=== PATIENT | female | born 2000 | race Caucasian/White ===

== ENCOUNTER 2023-06-17 23:50 | Observation (INO) | payer OTHER, SELFPAY ==
[2023-06-18 00:10] VITALS: BP 141/68; PULSE 103
[2023-06-18 00:28] VITALS: BP 122/58; PULSE 94
[2023-06-18 00:44] LABS: Bilirubin Urine NEGATIVE (NEGATIVE); Blood Urine NEGATIVE (NEGATIVE); Clarity Urine CLEAR (CLEAR); Color Urine LT. YELLOW (YELLOW); Glucose Urine UA NEGATIVE (NEGATIVE); Ketones Urine NEGATIVE (NEGATIVE); Leukocyte Esterase Urine SMALL (NEGATIVE); Nitrite Urine NEGATIVE (NEGATIVE); Protein Urine NEGATIVE (NEG/TRACE); Specific Gravity Urine 1.015 (1.005-1.025); Urobilinogen Urine 0.2 EU/dL (0.2-1.0)
[2023-06-18 00:45] LABS: Urine Microscopic Indicated YES
[2023-06-18 00:52] LABS: Bacteria Urine SMALL #/HPF (NONE SEEN); Cast Seen? NONE SEEN #/LPF (NONE SEEN); Crystals Seen? None Seen #/HPF (None Seen); Mucus Urine NONE SEEN (NONE SEEN); RBC Urine 0-2 #/HPF (0-2); Squamous Epithelial Cell Urine FEW #/LPF (NONE/RARE); Urine Culture Indicated YES; WBC Urine 0-2 #/HPF (NONE SEEN)
[2023-06-18 05:35] VITALS: BP 130/70; PULSE 103
--- NOTE | 2023-06-18 07:17 | W.PC.ACHO ---
Registration Status: ADM JI Primary Language: Preferred Language: Report given to Grady Alfonso RN. Active Medications Generic Name Dose Route Start Last Admin Trade Name Freq PRN Reason Stop Dose Admin Acetaminophen 1,000 mg 06/18/23 00:58 Acetaminophen 500 Mg Tablet PO Q6H PRN Cramping
--- NOTE | 2023-06-18 07:30 | US_ITS ---
[place] [id number] Patient Name: ASHLIE KELSEY MRN: [id number] date: 2000 Sex: F Assigned Patient Location: [facility] Current Patient Location: [facility] Accession/Order Number: [id number] Exam Date: 06/18/2023 07:15 Report Date: 06/18/2023 08:00 At the request of: FELICIA FUENTES Procedure: US OB placenta EXAMINATION: US OB growth, US OB placenta, US OB cervical length HISTORY: Vaginal bleeding COMPARISON: No relevant comparison available. FINDINGS: position: Cephalic presentation, longitudinal lie Amniotic fluid volume: 13.9 cm, normal Largest fluid pocket: 4.7 cm Placenta: Anterior. The placental tip is 5.4 cm from the internal os. Grade 0. No intraplacental or retroplacental echogenic abnormality Heart rate: 147 BPM Cervix: 5.5 cm, small amount of fluid in the endocervical canal measuring 1.2 mm in diameter BPD: 4.85 cm, 20 weeks 5 days, 16% Head circumference: 18.0 cm, 20 weeks 3 days, 5.6% Abdominal circumference: 16.7 cm, 21 weeks 5 days, 48% Femur length: 3.6 cm, 21 weeks 3 days, 37% Estimated weight: 426 g, 15 ounces, 39% Femur length abdominal circumference: 21.63 Femur length head circumference: 20.07 Head circumference to abdominal circumference: 1.08 Clinical age: 21 weeks 4 days Clinical NANCY: 10/25/2023 Ultrasound age: 21 weeks 1 day Ultrasound NANCY: 10/28/2023 US/US OB placenta IMPRESSION: Normal interval growth, head circumference at the 6th percentile Normal placenta with no evidence of abruption The cervix measures 5.5 cm in length. Small amount of fluid in the endocervical canal Electronically authenticated by: XUAN ARIZMENDI Date: 06/18/2023 08:00
--- NOTE | 2023-06-18 07:30 | US_ITS ---
[place] [id number] Patient Name: ASHLIE KELSEY MRN: [id number] date: 2000 Sex: F Assigned Patient Location: [facility] Current Patient Location: [facility] Accession/Order Number: [id number] Exam Date: 06/18/2023 07:15 Report Date: 06/18/2023 08:00 At the request of: FELICIA FUENTES Procedure: US OB cervical length EXAMINATION: US OB growth, US OB placenta, US OB cervical length HISTORY: Vaginal bleeding COMPARISON: No relevant comparison available. FINDINGS: position: Cephalic presentation, longitudinal lie Amniotic fluid volume: 13.9 cm, normal Largest fluid pocket: 4.7 cm Placenta: Anterior. The placental tip is 5.4 cm from the internal os. Grade 0. No intraplacental or retroplacental echogenic abnormality Heart rate: 147 BPM Cervix: 5.5 cm, small amount of fluid in the endocervical canal measuring 1.2 mm in diameter BPD: 4.85 cm, 20 weeks 5 days, 16% Head circumference: 18.0 cm, 20 weeks 3 days, 5.6% Abdominal circumference: 16.7 cm, 21 weeks 5 days, 48% Femur length: 3.6 cm, 21 weeks 3 days, 37% Estimated weight: 426 g, 15 ounces, 39% Femur length abdominal circumference: 21.63 Femur length head circumference: 20.07 Head circumference to abdominal circumference: 1.08 Clinical age: 21 weeks 4 days Clinical NANCY: 10/25/2023 Ultrasound age: 21 weeks 1 day Ultrasound NANCY: 10/28/2023 US/US OB cervical length IMPRESSION: Normal interval growth, head circumference at the 6th percentile Normal placenta with no evidence of abruption The cervix measures 5.5 cm in length. Small amount of fluid in the endocervical canal Electronically authenticated by: XUAN ARIZMENDI Date: 06/18/2023 08:00
--- NOTE | 2023-06-18 07:30 | US_ITS ---
[address] [address] Patient Name: ASHLIE KELSEY MRN: [id number] date: 2000 Sex: F Assigned Patient Location: [facility] Current Patient Location: [facility] Accession/Order Number: [id number] Exam Date: 06/18/2023 07:15 Report Date: 06/18/2023 08:00 At the request of: FELICIA FUENTES Procedure: US OB growth EXAMINATION: US OB growth, US OB placenta, US OB cervical length HISTORY: Vaginal bleeding COMPARISON: No relevant comparison available. FINDINGS: position: Cephalic presentation, longitudinal lie Amniotic fluid volume: 13.9 cm, normal Largest fluid pocket: 4.7 cm Placenta: Anterior. The placental tip is 5.4 cm from the internal os. Grade 0. No intraplacental or retroplacental echogenic abnormality Heart rate: 147 BPM Cervix: 5.5 cm, small amount of fluid in the endocervical canal measuring 1.2 mm in diameter BPD: 4.85 cm, 20 weeks 5 days, 16% Head circumference: 18.0 cm, 20 weeks 3 days, 5.6% Abdominal circumference: 16.7 cm, 21 weeks 5 days, 48% Femur length: 3.6 cm, 21 weeks 3 days, 37% Estimated weight: 426 g, 15 ounces, 39% Femur length abdominal circumference: 21.63 Femur length head circumference: 20.07 Head circumference to abdominal circumference: 1.08 Clinical age: 21 weeks 4 days Clinical NANCY: 10/25/2023 Ultrasound age: 21 weeks 1 day Ultrasound NANCY: 10/28/2023 US/US OB growth IMPRESSION: Normal interval growth, head circumference at the 6th percentile Normal placenta with no evidence of abruption The cervix measures 5.5 cm in length. Small amount of fluid in the endocervical canal Electronically authenticated by: XUAN ARIZMENDI Date: 06/18/2023 08:00
== END 2023-06-18 08:25 | disposition home or self-care (01) ==
PROVIDERS: Admitting Provider Midwife; Family Provider Family Medicine; PCP Family Medicine; Visit Provider Midwife
DX: O46.92 Antepartum hemorrhage, unspecified, second trimester (principal); Z3A.21 21 weeks gestation of pregnancy
CPT/HCPCS: 76815; 76816; 76817; 81003; 81015; 87086; G0378; G0379

== ENCOUNTER 2023-07-30 12:21 | Outpatient (OUT) | payer OTHER, SELFPAY ==
[2023-07-30 12:45] VITALS: BP 133/82; PULSE 106
--- NOTE | 2023-07-30 12:59 | US_ITS ---
[address] [address] Patient Name: ASHLIE KELSEY MRN: [id number] date: 2000 Sex: F Assigned Patient Location: [facility] Current Patient Location: [facility] Accession/Order Number: [id number] Exam Date: 07/30/2023 13:25 Report Date: 07/30/2023 14:04 At the request of: FELICIA FUENTES Procedure: US OB placenta Obstetrical ultrasound, limited CLINICAL: spotting TECHNIQUE: Transabdominal obstetrical ultrasound was performed. FINDINGS: Comparison to study 06/18/2023. FETUS AND PLACENTA: There is a single living intrauterine fetus in vertex presentation with heart rate of 149 beats per minute. The placenta is anterior in location, without previa. There is a 1.4 x 1.1 x 1.0 cm hypoechoic structure without significant vascular flow located at the upper margin of the placenta compatible with a small placental salazar. Otherwise normal appearance of the placenta without intraplacental or retroplacental fluid/hemorrhage. AMNIOTIC FLUID: Amniotic fluid volume but visualized inspection is subjectively within normal limits US/US OB placenta IMPRESSION: 1. Single intrauterine fetus in vertex presentation with heart rate of 149 beats per minute. 2. Anterior placenta without previa. There is a small 1.4 cm placental salazar. Placenta otherwise normal in appearance without intraplacental or retroplacental fluid/hemorrhage. Recommend followup imaging if symptoms worsen or persist. Electronically authenticated by: EVIN MCKENZIE Date: 07/30/2023 14:04
[2023-07-30 13:02] LABS: Bilirubin Urine NEGATIVE (NEGATIVE); Blood Urine NEGATIVE (NEGATIVE); Clarity Urine CLEAR (CLEAR); Color Urine LT. YELLOW (YELLOW); Glucose Urine UA NEGATIVE (NEGATIVE); Ketones Urine NEGATIVE (NEGATIVE); Leukocyte Esterase Urine SMALL (NEGATIVE); Nitrite Urine NEGATIVE (NEGATIVE); Protein Urine NEGATIVE (NEG/TRACE); Specific Gravity Urine 1.015 (1.005-1.025); Urine Microscopic Indicated YES; Urobilinogen Urine 0.2 EU/dL (0.2-1.0); pH Urine 7.5 (5.0-9.0)
[2023-07-30 13:07] LABS: Bacteria Urine NONE SEEN #/HPF (NONE SEEN); Mucus Urine NONE SEEN (NONE SEEN); RBC Urine NONE SEEN #/HPF (0-2); WBC Urine 0-2 #/HPF (NONE SEEN)
[2023-07-30 13:08] LABS: Amorphous Sediment Urine RARE; Cast Seen? NONE SEEN #/LPF (NONE SEEN); Crystals Seen? None Seen #/HPF (None Seen); Squamous Epithelial Cell Urine RARE #/LPF (NONE/RARE); Urine Culture Indicated NO
== END 2023-07-30 14:12 | disposition home or self-care (01) ==
LOC: FBCO 12:25 → FBC 12:26
PROVIDERS: Family Provider Family Medicine; PCP Family Medicine; Visit Provider Midwife
DX: O26.859 Spotting complicating pregnancy, unspecified trimester (principal); Z3A.00 Weeks of gestation of pregnancy not specified
CPT/HCPCS: 76815; 81001

== ENCOUNTER 2023-09-23 11:31 | Observation (INO) | payer OTHER, SELFPAY ==
[2023-09-23 11:48] VITALS: BP 145/85; PULSE 75
--- NOTE | 2023-09-23 11:51 | PC.NURSE ---
lab at bedside for ordered stat labs.Denies blurred vision, spotty vision. Took BP at home and elevated
[2023-09-23 11:57] LABS: Basophils Absolute Auto 0.1 10^3/uL (0.0-0.1); Basophils Percent Auto 0.5 % (0.2-2.0); Eosinophils Absolute Auto 0.1 10^3/uL (0.0-0.7); Eosinophils Percent Auto 0.4 % (0.9-7.0); Hematocrit 37.2 % (36.0-48.0); Hemoglobin 12.3 g/dL (12.0-16.0); Immature Granulocytes Abs Auto 0.08 10^3/uL (0.00-0.03); Immature Granulocytes Pct Auto 0.7 % (0.0-0.5); Lymphocytes Percent Auto 17.6 % (20.5-60.0); Mean Corpuscular HGB Conc 33.1 g/dL (29.9-35.2); Mean Corpuscular Hemoglobin 28.1 pg (26.7-34.0); Mean Corpuscular Volume 85.1 fL (81.0-99.0); Mean Platelet Volume 10.1 fL (9.5-13.5); Monocytes Absolute Auto 0.6 10^3/uL (0.3-0.8); Neutrophils Absolute Auto 8.7 10^3/uL (1.4-6.5); Neutrophils Percent Auto 75.8 % (43.0-75.0); Platelet Count 238 10^3/uL (150-450); Red Blood Count 4.37 10^6/uL (4.20-5.40); Red Cell Distribution Width 12.9 % (11.0-15.0); White Blood Count 11.5 10^3/uL (4.0-11.0)
[2023-09-23 12:15] LABS: Alanine Aminotransferase 9 U/L (14-59); Albumin Globulin Ratio 0.5; Albumin Level 2.1 g/dL (3.4-5.0); Alkaline Phosphatase 112 U/L (46-116); Anion Gap 16.4; Aspartate Amino Transferase 15 U/L (15-37); BUN Creatinine Ratio 12.4; Bilirubin Total 0.2 mg/dL (0.2-1.0); Calcium 7.9 mg/dL (8.5-10.1); Carbon Dioxide 19.4 mmol/L (21.0-32.0); Chloride 105 mmol/L (98-107); Estimated GFR (African America >60 (>=60); Estimated GFR (Non-African Ame >60 (>=60); Globulin 3.9 g/dL; Glucose 86 mg/dL (74-106); Lactate Dehydrogenase 174 U/L (81-234); Potassium 3.8 mmol/L (3.5-5.1); Sodium 137 mmol/L (136-145); Uric Acid 7.2 mg/dL (2.6-6.0)
[2023-09-23 12:20] VITALS: BP 138/82; PULSE 66
--- NOTE | 2023-09-23 12:41 | PC.NURSE ---
up to bathroom and urine specimen obtained and sent to lab. Returns to bed on left side- continues to deny headache, blurred vision, spotty vision, epigastric pain. States has not eaten today not really hungry .
[2023-09-23 12:50] VITALS: BP 117/66; PULSE 70
[2023-09-23 13:11] LABS: Protein Creatinine Ratio Urine 0.19; Total Protein Urine Random 121.5 mg/dL (<=11.9)
[2023-09-23 13:21] VITALS: BP 125/58; PULSE 58
[2023-09-23 13:51] VITALS: BP 106/57; PULSE 54
--- NOTE | 2023-09-23 14:28 | PC.NURSE ---
1235: CNM in unit for delivery and reported returned lab values for patient- no orders received-1310: States to call with urine protein creatinine ratio results. 1400: CNM called at office with results and orders received. 1415: discharge instructions reviewed with patient and off work note given. Patient leaves ambulatory undelivered.
== END 2023-09-23 14:15 | disposition home or self-care (01) ==
LOC: FBC 11:32
PROVIDERS: Admitting Provider Midwife; Family Provider Family Medicine; PCP Family Medicine; Visit Provider Midwife
DX: O16.9 Unspecified maternal hypertension, unspecified trimester (principal); O26.899 Other specified pregnancy related conditions, unspecified trimester; R60.9 Edema, unspecified; Z3A.00 Weeks of gestation of pregnancy not specified
CPT/HCPCS: 36415; 59025; 80053; 82570; 83615; 84156; 84550; 85025; 85384; G0378; G0379

== ENCOUNTER 2023-09-25 09:53 | Inpatient (IN) | payer OTHER, SELFPAY ==
[2023-09-25] VITALS (38 sets, daily range): BP systolic 97–145; BP diastolic 56–100; PULSE 55–77; RESP 16; TEMP 36–36.6
[2023-09-25 10:31] LABS: Amnisure POSITIVE (NEGATIVE)
[2023-09-25] MEDS: LACTATED RINGER'S SOLUTION 1,000 ML 125 ML IV ×2 (11:39→20:08)
[2023-09-25 11:54] LABS: Hematocrit 38.5 % (36.0-48.0); Mean Corpuscular HGB Conc 33.8 g/dL (29.9-35.2); Mean Corpuscular Hemoglobin 28.8 pg (26.7-34.0); Mean Corpuscular Volume 85.4 fL (81.0-99.0); Mean Platelet Volume 10.8 fL (9.5-13.5); Platelet Count 258 10^3/uL (150-450); Red Blood Count 4.51 10^6/uL (4.20-5.40); Red Cell Distribution Width 12.9 % (11.0-15.0); White Blood Count 14.1 10^3/uL (4.0-11.0)
[2023-09-25] MEDS: AMPICILLIN SODIUM 2,000 MG in 0.9 % SODIUM CHLORIDE 100 ML 200 MG IV (11:56)
[2023-09-25] MEDS: BETAMETHASONE ACE/BETAMETHASONE SOD PHOS 30 MG/5 ML 12 MG IM (12:36)
[2023-09-25] MEDS: OXYTOCIN/0.9 % SODIUM CHLORIDE 10 UNITS/500 ML PLAST..BAG 6 UNIT IV ×2 (13:02→22:57)
--- NOTE | 2023-09-25 13:25 | PC.NURSE ---
1000: patient arrives with c/o SROM at 0830 this morning. Noted a gush of clear fluid upon awakening and voided after a large amount. Oriented to room and EFM applied. 1015: SVE- ft, 50 ,-2 and posterior- amnisure completed and sent to lab. Patient denies feeling regular contractions and has a small amount fluid noted on siddharth pad with brownish color mixed in. FHR baseline 140 with moderate variability, no decels noted. No regular ctxs noted. 1045: amnisure results positive and TC to Jeanie Mancini CNM at office and report given and orders received to admit and begin pitocin augmentation. Patient informed of results and plan of care. Calling significant other .1053: up to bathroom and voids- specimen obtained. 1116: efm resumed and patient admission process completed. 1130: IV started on 1st attempt in right hand. Blood drawn from IV start and sent to lab. 1140 : LR started at 125ml/hr per infusion pump. 1200: Ampicillin 2 gms IVPB.1230: FHR 145 and moderate variability. No regular ctxs noted on tracing or by patient.1244: up to bathroom and washes up.1304: EFM resumed and oxytocin started at 2mu/min per infusion pump and procedure explained to patient and significant other. LE 1240 : celestone 12 mg IM per order of DR Alas on unit and updated on patient.
[2023-09-25] MEDS: AMPICILLIN SODIUM 1,000 MG in 0.9 % SODIUM CHLORIDE 50 ML 100 MG IV ×2 (16:00→20:08)
[2023-09-25 16:25] LABS: Amphetamine Screen Urine NEGATIVE (NEGATIVE); Barbiturates Screen Urine NEGATIVE (NEGATIVE); Benzodiazepines Screen Urine NEGATIVE (NEGATIVE); Buprenorphine Screen Urine NEGATIVE (NEGATIVE); Cannabinoid Screen Urine NEGATIVE (NEGATIVE); Cocaine Screen Urine NEGATIVE (NEGATIVE); Methadone Screen Urine NEGATIVE (NEGATIVE); Methamphetamines Screen Urine NEGATIVE (NEGATIVE); Opiate Screen Urine NEGATIVE (NEGATIVE); Oxycodone Screen Urine NEGATIVE (NEGATIVE); Phencyclidine Screen Urine NEGATIVE (NEGATIVE); Tricyclic Antidepressant Urine NEGATIVE (NEGATIVE)
--- NOTE | 2023-09-25 18:25 | US_ITS ---
[place] [id number] Patient Name: ASHLIE KELSEY MRN: [facility]:[id number] date: 2000 Sex: F Assigned Patient Location: [facility] Current Patient Location: [facility] Accession/Order Number: [id number] Exam Date: 09/25/2023 18:26 Report Date: 09/25/2023 19:32 At the request of: FELICIA FUENTES Procedure: US OB amniotic fluid vol EXAM: US OB amniotic fluid vol 09/25/2023 4:31 PM PDT, [id number] HISTORY: PROM. TECHNIQUE: Multiple longitudinal and transverse grayscale and color sonographic images of the intrauterine gestation were acquired. COMPARISON: OB ultrasound 07/30/2023. FINDINGS/IMPRESSION: Single live intrauterine gestation with heart rate at 122 bpm. Amniotic fluid index is within normal limits at 9.83 cm. Cephalic presentation. Electronically authenticated by: LONG HUBER Date: 09/25/2023 19:32
--- NOTE | 2023-09-25 18:39 | PC.NURSE ---
1815: Kamila Mancini CNM calls in - report given and orders GOYO. Informed patient sleeping currently and ctxs palpate mild and pitocin at 20 mu/min per infusion pump. Pain reported by patient as a 1 . 1824 - patient sleeping on right side and toco adjusted. 1834: US in for GOYO.
--- NOTE | 2023-09-25 21:12 | P.OBHP_ITS ---
OB - H&P: HPI History of Present Illness Chief complaint: POSS RUPTURED MEMBRANE : 1 Para: 0 Gestational age based on last menstrual period: 35.5 Indications for induction: other (PPROM) Comments: patient states her water broke this morning at 0826 when she was walking to the bathroom. History of Present Dating criteria: LMP confirmed by 1st trimester US care: good care Ultrasounds: normal 1st trimester US and normal mid trimester US complications: labor ( rupture of membranes ) Medical complications OB: none Labs Blood type: O (+) positive Rubella: immune RPR/VDLR: nonreactive GBS status: unknown HBsAG: negative Review of Systems ROS Status of ROS 10 or more systems reviewed and unremarkable except as noted in history and below PFSH PFSH Surgical History (Updated 06/18/23 @ 01:36 by Natalia Tsang) History of appendectomy ?Z90.49 - Acquired absence of other specified parts of digestive tract (ICD- 10) History of kidney surgery ?Z98.890 - Other specified postprocedural states (ICD-10) History of placement of ear tubes ?Z96.22 - Myringotomy tube(s) status (ICD-10) History of tonsillectomy and adenoidectomy ?Z90.89 - Acquired absence of other organs (ICD-10) Family History (Updated 06/18/23 @ 01:29 by Natalia Tsang) Mother Family history of hypertension Family history of diabetes mellitus Family history of myocardial infarction Grandmother Family history of hypertension Family history of diabetes mellitus Social History (Updated 06/18/23 @ 01:32 by Natalia Tsang) Within the past year, how often did you have a drink containing alcohol: monthly or less Within the past year, how many standard drinks containing alcohol did you have on a typical day: 1 or 2 Within the past year, how often did you have six or more drinks on one occasion: never Total score: 0 Score interpretation: A score less than 3 is consistent with normal alcohol consumption. Smoking status: Never smoker Non-prescribed substance use: denies use Highest level of school completed/degree received: some college, no degree Little interest or pleasure in doing things: not at all Feeling down, depressed, or hopeless: not at all Feel stressed/tense/nervous/anxious/difficulty sleeping: not at all Do you think of yourself as: straight/heterosexual Gender Identity: female Meds Home Medications and Allergies Home Medications Medication Instructions Recorded Confirmed Type ondansetron 8 mg disintegrating 8 mg PO PRN PRN nausea and vomiting 06/18/23 06/18/23 History tablet Allergies Allergy/AdvReac Type Severity Reaction Status Date / Time No Known Drug Allergies Allergy Verified 06/18/23 01:24 Exam Constitutional Vital Signs, click to edit/add: Last Vital Signs Temp 97.0 F L 09/25/23 18:00 Pulse 65 09/25/23 21:09 Resp 16 09/25/23 19:25 BP 141/81 09/25/23 21:09 Documenting provider has reviewed patient's vital signs: yes Common normals: no apparent distress, oriented x3, alert and well nourished General appearance: cooperative, comfortable, well kempt and well developed Nutritional appearance: overweight Orientation/consciousness: Yes awake, Yes oriented to person, Yes oriented to place and Yes oriented to time HENMT Common normals: normocephalic Eye Common normals: PERRL Neck & C-Spine Common normals: full ROM Chest Common normals: inspection of chest normal Respiratory Common normals: normal respiratory effort Auscultation: clear to auscultation bilaterally Cardio Common normals: regular rate, regular rhythm and no murmurs Rate: regular rate Rhythm: regular rhythm GI Common normals: Normal to inspection, nondistended, normoactive bowel sounds present Auscultation: normoactive bowel sounds Palpation: soft Percussion: normal to percussion Common normals: no CVA tenderness Back & Pelvis Common normals: no CVA tenderness Extremity Common normals: normal to inspection Neuro Common normals: oriented x3 and moves all extremities Sensorium/orientation: awake, alert, oriented to person, oriented to place and oriented to time Psych Common normals: mental status grossly normal, thought process normal and cooperative Results Labs Labs: Short CBC 09/25/23 Range/Units 11:35 WBC 14.1 H (4.0-11.0) 10^3/uL Hgb 13.0 (12.0-16.0) g/dL Hct 38.5 (36.0-48.0) % Plt Count 258 (150-450) 10^3/uL OB - A/P Assessment and Plan (1) premature rupture of membranes, unspecified as to length of time between rupture and onset of labor, third trimester:
--- NOTE | 2023-09-25 21:24 | PM.EN ---
Event Note Event Note: 2042 CNM to room to assess patient. Patient resting comfortably in bed and eating a popsicle. Denies pain, states she feels a little bit of cramping. Irregular contractions, abdomen palpates soft at this time. Speculum exam performed, +pooling seen, slide obtained. +ferning noted on slide. continue pitocin orders and antibiotics.
[2023-09-25] MEDS: CALCIUM CARBONATE 500 MG (200MG ELEMENTAL) TAB CHEW PO (21:27)
[2023-09-25] MEDS: ONDANSETRON PF 4 MG/2 ML VIAL IV (23:48)
[2023-09-25] MEDS: ACETAMINOPHEN 500 MG TABLET 1000 MG PO (23:48)
[2023-09-26] VITALS (40 sets, daily range): BP systolic 70–149; BP diastolic 53–93; PULSE 54–101; RESP 7–23; TEMP 36.4–36.7; O2SAT 78–100
[2023-09-26] MEDS: AMPICILLIN SODIUM 1,000 MG in 0.9 % SODIUM CHLORIDE 50 ML 100 MG IV ×3 (00:23→08:30)
[2023-09-26] MEDS: FAMOTIDINE/PF 20 MG/2 ML VIAL IV ×2 (02:50→11:33)
[2023-09-26] MEDS: LACTATED RINGER'S SOLUTION 1,000 ML 125 ML IV (04:07)
[2023-09-26] MEDS: BETAMETHASONE ACE/BETAMETHASONE SOD PHOS 30 MG/5 ML 12 MG IM (10:44)
--- NOTE | 2023-09-26 11:00 | PM.EN ---
Event Note Event Note: Plan of care explained to patient per Dr Alas. Patient is over 24 hours ruptured and no active labor pattern, patient not feeling any contractions. Afebrile, doing well. Patient and Dr Alas discuss options and patient agrees to proceed with primary section at this time for failed induction and prolonged rupture of membranes with no labor pattern established.
[2023-09-26] MEDS: 0.9 % SODIUM CHLORIDE 1,000 ML 1000 ML IV (11:32)
[2023-09-26] MEDS: CEFAZOLIN SODIUM/DEXTROSE,ISO 2 GM/50 ML PIGGYBACK IV ×2 (11:32→16:57)
[2023-09-26] MEDS: METOCLOPRAMIDE HCL 10 MG/2 ML VIAL IVP (11:33)
[2023-09-26] MEDS: LACTATED RINGER'S SOLUTION 1,000 ML 50 ML IV (12:35)
--- NOTE | 2023-09-26 12:37 | PM.ONB ---
Brief Operative Note Date of procedure: 09/26/23 Pre-op diagnosis: iup at 35 6/7wks, prom, failure to augment Post-op diagnosis: same as pre-op Procedure: NAME OF PROCEDURE: [ section ] PROCEDURE: Patient was taken back to the Operating Room where she was given a spinal anesthesia with Duramorph without difficulty. She was prepped and draped in the normal sterile fashion. A Pfannenstiel skin incision was then made 2 cm above the symphysis pubis and carried down to underlying rectus fascia using a Bovie. The fascia was incised in the midline and extended laterally using Kelly scissors. Two Jodi clamps were placed on the superior aspect of the fascia and dissected off the underlying rectus muscles. The same was performed on the inferior aspect as well. The muscles were then in the midline. Peritoneum was identified and entered bluntly. The peritoneum was then extended superiorly and inferiorly with good visualization of the bladder. The bladder blade was inserted. A low transverse incision was made on the patient's uterus and extended laterally digitally. The was then delivered atraumatically after the bladder blade was removed in the cephalic position. The cord was clamped and cut. Cord blood was obtained. The was handed off to awaiting team. The patient's placenta was spontaneously delivered. The uterus was then exteriorized. The uterus was cleared of all clots and debris. The bladder blade was reinserted. The patient's uterine incision was closed using #0 Vicryl in a running lock fashion. Excellent hemostasis was assured. The uterus was then returned to the patient's abdomen. The patient's abdomen was copiously irrigated using warm saline. Peritoneal gutters were cleared of all clots and debris. Again excellent hemostasis was assured. The patient's peritoneum was closed using 3-0 Vicryl in a running fashion. The patient's fascia was closed using #0 Vicryl in a running fashion. The patient's skin was closed using 4-0 Vicryl subcuticularly. The patient tolerated the procedure well. Sponge, lap, and needle counts were correct x2. The patient was taken to the Recovery Room in stable condition. Anesthesia: GETA Surgeon: Ramírez Alas Medical Office Coordinator: FELICIA FUENTES Estimated blood loss (mL): 600 Pathology: other (placenta) Condition: stable Disposition: PACU
--- NOTE | 2023-09-26 12:38 | PM.OBPRCCS ---
Procedure Pre-op/Post-op diagnoses: Pre-Op/Post-Op Diagnoses Operation Date: 09/26/23 11:30 <No data on this case meets the specified criteria> Procedure: Procedures Operation Date: 09/26/23 11:30 Actual Procedure Side Surgeon p Not Applicable Ramírez Alas DO Industrial Machine Operator: FELICIA FUENTES Estimated blood loss (mL): 600 Disposition: PACU Anesthesia type: Spinal
[2023-09-26] MEDS: OXYTOCIN/0.9 % SODIUM CHLORIDE 20 UNITS/1,000 ML PLAST..BAG 200 UNIT IV (13:05)
--- NOTE | 2023-09-26 13:16 | PC.NURSE ---
Electrical Manager speaks with FOB at warmer bedside. Discussed LPI and and need for support until infant ready to do full feeds at the breast. Given information for same. Also speaks with Liana (mom) and given information fo rthe same. Very early after C/S delivery, mom in recovery. Will need on going education and reinforcement of skills.
--- NOTE | 2023-09-26 13:27 | PM.EN ---
Event Note Event Note: 1st Assist Note: I first assisted Dr Alas with primary section for failed augmentation, patient had SROM since yesterday at 0830. I first assisted as directed by Dr Alas. I independently closed the SQ layer with 3-0 vicryl without difficulty. I then independently closed the incision with 4-0 vicryl on a [place] needle without difficulty
[2023-09-26] MEDS: KETOROLAC TROMETHAMINE 30 MG/ML VIAL IVP ×2 (13:43→19:46)
--- NOTE | 2023-09-26 18:44 | PC.NURSE ---
barr emptied of 75 ml urine, Kamila notified of same, baby to breast but no latch achieved, reviewed hand expression and elects to pump by hand
[2023-09-26 21:29] LABS: Basophils Percent Auto 0.1 % (0.2-2.0); Hematocrit 32.8 % (36.0-48.0); Immature Granulocytes Abs Auto 0.18 10^3/uL (0.00-0.03); Immature Granulocytes Pct Auto 0.8 % (0.0-0.5); Lymphocytes Absolute Auto 1.1 10^3/uL (1.2-3.8); Lymphocytes Percent Auto 4.7 % (20.5-60.0); Mean Corpuscular HGB Conc 33.5 g/dL (29.9-35.2); Mean Corpuscular Hemoglobin 28.8 pg (26.7-34.0); Mean Corpuscular Volume 85.9 fL (81.0-99.0); Monocytes Absolute Auto 0.8 10^3/uL (0.3-0.8); Monocytes Percent Auto 3.4 % (1.7-12.0); Neutrophils Absolute Auto 20.4 10^3/uL (1.4-6.5); Platelet Count 267 10^3/uL (150-450); Red Blood Count 3.82 10^6/uL (4.20-5.40); Red Cell Distribution Width 13.1 % (11.0-15.0); White Blood Count 22.4 10^3/uL (4.0-11.0)
[2023-09-26 21:38] LABS: Anion Gap 12.7; BUN Creatinine Ratio 11.2; Calcium 7.5 mg/dL (8.5-10.1); Chloride 103 mmol/L (98-107); Estimated GFR (African America 60 (>=60); Estimated GFR (Non-African Ame 49 (>=60); Glucose 138 mg/dL (74-106); Potassium 4.7 mmol/L (3.5-5.1); Sodium 131 mmol/L (136-145)
[2023-09-26 22:58] LABS: Alanine Aminotransferase 9 U/L (14-59); Albumin Globulin Ratio 0.5; Albumin Level 1.9 g/dL (3.4-5.0); Alkaline Phosphatase 94 U/L (46-116); Aspartate Amino Transferase 15 U/L (15-37); Bilirubin Direct <0.1 mg/dL (0.0-0.2); Bilirubin Total 0.1 mg/dL (0.2-1.0); Globulin 3.6 g/dL; Total Protein 5.5 g/dL (6.4-8.2)
[2023-09-27] VITALS (7 sets, daily range): BP systolic 128–141; BP diastolic 73–81; PULSE 55–75; RESP 14–18; TEMP 36.3–36.8
[2023-09-27] MEDS: ENOXAPARIN SODIUM 40 MG/0.4 ML SYRINGE SUBQ (00:01)
[2023-09-27] MEDS: KETOROLAC TROMETHAMINE 30 MG/ML VIAL IVP (01:37)
[2023-09-27 06:48] LABS: Basophils Percent Auto 0.2 % (0.2-2.0); Hematocrit 32.1 % (36.0-48.0); Hemoglobin 10.5 g/dL (12.0-16.0); Immature Granulocytes Abs Auto 0.14 10^3/uL (0.00-0.03); Immature Granulocytes Pct Auto 0.7 % (0.0-0.5); Lymphocytes Absolute Auto 1.4 10^3/uL (1.2-3.8); Lymphocytes Percent Auto 7.3 % (20.5-60.0); Mean Corpuscular HGB Conc 32.7 g/dL (29.9-35.2); Mean Corpuscular Hemoglobin 28.5 pg (26.7-34.0); Mean Corpuscular Volume 87.2 fL (81.0-99.0); Mean Platelet Volume 10.8 fL (9.5-13.5); Monocytes Absolute Auto 0.8 10^3/uL (0.3-0.8); Monocytes Percent Auto 3.9 % (1.7-12.0); Neutrophils Absolute Auto 16.9 10^3/uL (1.4-6.5); Neutrophils Percent Auto 87.9 % (43.0-75.0); Platelet Count 240 10^3/uL (150-450); Red Blood Count 3.68 10^6/uL (4.20-5.40); Red Cell Distribution Width 13.1 % (11.0-15.0); White Blood Count 19.2 10^3/uL (4.0-11.0)
[2023-09-27] MEDS: FUROSEMIDE 20 MG/2 ML VIAL 10 MG IVP (07:33)
--- NOTE | 2023-09-27 08:39 | P.OBPN_ITS ---
OB - PN: Subj Subjective Patient comments: no complaints and pain well controlled [place] status: doing well Exam Constitutional Vital Signs, click to edit/add: Last Vital Signs Temp 97.4 F L 09/27/23 07:30 Pulse 56 L 09/27/23 07:32 Resp 18 09/27/23 07:30 BP 141/81 09/27/23 07:32 Pulse Ox 97 09/26/23 19:52 O2 Del Method Room Air 09/27/23 05:00 Common normals: no apparent distress Chest Common normals: inspection of chest normal Respiratory Common normals: normal respiratory effort, no retractions, no use of accessory muscles and clear to auscultation bilaterally Cardio Common normals: regular rate GI Common normals: Normal to inspection, nondistended, normoactive bowel sounds present, soft to palpation and non-tender Inspection: normal to inspection Auscultation: hypoactive bowel sounds Palpation: soft Percussion: normal to percussion Other: Incision dry and intact with steri strips Other: Fundus firm below umbilicus, nontender minimal bleeding Results Labs Labs: Short CBC 09/26/23 09/27/23 Range/Units 21:24 06:40 WBC 22.4 H 19.2 H (4.0-11.0) 10^3/uL Hgb 11.0 L 10.5 L (12.0-16.0) g/dL Hct 32.8 L 32.1 L (36.0-48.0) % Plt Count 267 240 (150-450) 10^3/uL BMP 09/26/23 21:24 Sodium 131 L Potassium 4.7 Chloride 103 Carbon Dioxide 20.0 L BUN 15.0 Creatinine 1.34 H Glucose 138 H Calcium 7.5 L Liver Function 09/26/23 Range/Units 21:24 Total Bilirubin 0.1 L (0.2-1.0) mg/dL Direct Bilirubin <0.1 (0.0-0.2) mg/dL AST 15 (15-37) U/L ALT 9 L (14-59) U/L Alkaline Phosphatase 94 (46-116) U/L Albumin 1.9 L (3.4-5.0) g/dL OB - PN: A/P Assessment and Plan (1) premature rupture of membranes, unspecified as to length of time between rupture and onset of labor, third trimester: Plan Urine output averaged adequately but decreased compared to input. Lasix given IV this AM with good results OK to remove barr catheter and continue void urine amount. Post op blood count appropriate, WBC improved Creatinine 1.3 last night, in light of patient's PMH of kidney issues will discontinue NSAID for pain management Patient to have Renal panel drawn this evening Time Spent with Patient Time: Total time spent is greater than 50% in coordination of care (as documented) at patient's floor/unit and/or counseling patient: Total time spent with greater than 50% in coordination of care (as documented) at patient's floor/unit and/or counseling patient: less than 15 minutes
[2023-09-27] MEDS: CALCIUM CARBONATE 500 MG (200MG ELEMENTAL) TAB CHEW PO (09:07)
[2023-09-27] MEDS: SIMETHICONE 80 MG TAB.CHEW PO (09:07)
[2023-09-27] MEDS: DOCUSATE SODIUM 100 MG CAPSULE PO ×2 (09:07→22:13)
[2023-09-27 09:16] LABS: Albumin Level 1.9 g/dL (3.4-5.0); BUN Creatinine Ratio 18.1; Calcium 7.7 mg/dL (8.5-10.1); Carbon Dioxide 20.8 mmol/L (21.0-32.0); Chloride 105 mmol/L (98-107); Estimated GFR (African America >60 (>=60); Estimated GFR (Non-African Ame >60 (>=60); Glucose 100 mg/dL (74-106); Potassium 4.8 mmol/L (3.5-5.1); Sodium 134 mmol/L (136-145)
[2023-09-27] MEDS: OXYCODONE HCL/ACETAMINOPHEN 5MG/325MG 1 TAB PO (09:56)
[2023-09-27] MEDS: ONDANSETRON 4 MG RAPDIS TABLET PO (10:47)
[2023-09-27] MEDS: ACETAMINOPHEN 500 MG TABLET 1000 MG PO (16:05)
--- NOTE | 2023-09-27 19:24 | W.PC.ACHO ---
Registration Status: ADM IN Primary Language: Japanese Preferred Language: Japanese Report received from Hanane Alexis RN at 1903. Active Medications Generic Name Dose Route Start Last Admin Trade Name Freq PRN Reason Stop Dose Admin Acetaminophen 1,000 mg 09/25/23 21:05 09/27/23 16:05 Acetaminophen 500 Mg Tablet PO 1,000 mg Q6H PRN Administration Pain Al Hydroxide/Mg Hydroxide 2,400 mg 09/26/23 12:39 Magnesium Hydroxide 2,400 Mg/10 Ml Oral.Susp PO Q6H PRN Dyspepsia Calcium Carbonate 500 mg 09/25/23 21:05 09/27/23 09:07 Calcium Carbonate 500 Mg (200mg Elemental) Tab Chew PO 500 mg ACHS PRN Administration Heartburn Docusate Sodium 100 mg 09/27/23 09:00 09/27/23 09:07 Docusate Sodium 100 Mg Capsule PO 100 mg BID ASHLEY Administration Enoxaparin Sodium 40 mg 09/26/23 22:00 09/27/23 00:01 Enoxaparin Sodium 40 Mg/0.4 Ml Syringe SUBQ 40 mg Q24H ASHLEY Administration Famotidine 10 mg 09/26/23 21:00 09/27/23 09:00 Famotidine 20 Mg Tablet PO Not Given BID ASHLEY Sodium Chloride 1,000 mls @ 125 mls/hr 09/26/23 13:30 Sodium Chloride 0.9% 1,000 Ml IV .Q8H ASHLEY Lactated Ringer's 1,000 mls @ 50 mls/hr 09/26/23 12:35 09/26/23 12:35 Lactated Ringers IV 50 mls/hr .Q20H ASHLEY Administration Ondansetron HCl 4 mg 09/26/23 12:39 Ondansetron Pf 4 Mg/2 Ml Vial IV Q6H PRN Nausea And Vomiting Ondansetron HCl 4 mg 09/26/23 12:39 09/27/23 10:47 Ondansetron 4 Mg Rapdis Tablet PO 4 mg Q6H PRN Administration Nausea And Vomiting Oxycodone/Acetaminophen 1 tab 09/26/23 12:39 09/27/23 09:56 Oxycodone Hcl/Acetaminophen 5mg/325mg PO 1 tab Q4H PRN Administration Pain Scale 4-6 Oxycodone/Acetaminophen 2 tab 09/26/23 12:39 Oxycodone Hcl/Acetaminophen 5mg/325mg PO Q4H PRN Pain Scale 7-10 Senna 17.2 mg 09/26/23 20:00 Sennosides 8.6 Mg Tablet PO QHS PRN Constipation Simethicone 80 mg 09/26/23 12:39 09/27/23 09:07 Simethicone 80 Mg Tab.Chew PO 80 mg QID PRN Administration Abdominal Distention Zolpidem Tartrate 5 mg 09/25/23 21:05 Zolpidem Tartrate 5 Mg Tablet PO HS PRN Sleep Respiratory Pulse Oximetry 97 Oxygen Delivery Method Room Air Oxygen Delivery Method Room Air Oxygen Delivery Method Room Air Oxygen Delivery Method Room Air Cardiology Heart Sounds Strong,Regular Heart Sounds Strong,Regular Bowels Bowel Pattern No Bowel Movement Bowel Pattern No Bowel Movement Renal Bladder Pattern Continent
[2023-09-28] VITALS (10 sets, daily range): BP systolic 129–163; BP diastolic 72–104; PULSE 48–75; RESP 16–18; TEMP 36.6–36.8
[2023-09-28] MEDS: OXYCODONE HCL/ACETAMINOPHEN 5MG/325MG 1 TAB PO ×2 (00:13→04:06)
[2023-09-28] MEDS: ENOXAPARIN SODIUM 40 MG/0.4 ML SYRINGE SUBQ (00:14)
--- NOTE | 2023-09-28 07:08 | W.PC.ACHO ---
Registration Status: ADM IN Primary Language: Venezuelan Preferred Language: Venezuelan Report given to Hanane Alexis RN [id number]. Active Medications Generic Name Dose Route Start Last Admin Trade Name Freq PRN Reason Stop Dose Admin Acetaminophen 1,000 mg 09/25/23 21:05 09/27/23 16:05 Acetaminophen 500 Mg Tablet PO 1,000 mg Q6H PRN Administration Pain Al Hydroxide/Mg Hydroxide 2,400 mg 09/26/23 12:39 Magnesium Hydroxide 2,400 Mg/10 Ml Oral.Susp PO Q6H PRN Dyspepsia Calcium Carbonate 500 mg 09/25/23 21:05 09/27/23 09:07 Calcium Carbonate 500 Mg (200mg Elemental) Tab Chew PO 500 mg ACHS PRN Administration Heartburn Docusate Sodium 100 mg 09/27/23 09:00 09/27/23 22:13 Docusate Sodium 100 Mg Capsule PO 100 mg BID ASHLEY Administration Enoxaparin Sodium 40 mg 09/26/23 22:00 09/28/23 00:14 Enoxaparin Sodium 40 Mg/0.4 Ml Syringe SUBQ 40 mg Q24H ASHLEY Administration Famotidine 10 mg 09/26/23 21:00 09/27/23 22:14 Famotidine 20 Mg Tablet PO Not Given BID ASHLEY Sodium Chloride 1,000 mls @ 125 mls/hr 09/26/23 13:30 Sodium Chloride 0.9% 1,000 Ml IV .Q8H ASHLEY Lactated Ringer's 1,000 mls @ 50 mls/hr 09/26/23 12:35 09/26/23 12:35 Lactated Ringers IV 50 mls/hr .Q20H ASHLEY Administration Ondansetron HCl 4 mg 09/26/23 12:39 Ondansetron Pf 4 Mg/2 Ml Vial IV Q6H PRN Nausea And Vomiting Ondansetron HCl 4 mg 09/26/23 12:39 09/27/23 10:47 Ondansetron 4 Mg Rapdis Tablet PO 4 mg Q6H PRN Administration Nausea And Vomiting Oxycodone/Acetaminophen 1 tab 09/26/23 12:39 09/28/23 04:06 Oxycodone Hcl/Acetaminophen 5mg/325mg PO 1 tab Q4H PRN Administration Pain Scale 4-6 Oxycodone/Acetaminophen 2 tab 09/26/23 12:39 Oxycodone Hcl/Acetaminophen 5mg/325mg PO Q4H PRN Pain Scale 7-10 Senna 17.2 mg 09/26/23 20:00 Sennosides 8.6 Mg Tablet PO QHS PRN Constipation Simethicone 80 mg 09/26/23 12:39 09/27/23 09:07 Simethicone 80 Mg Tab.Chew PO 80 mg QID PRN Administration Abdominal Distention Zolpidem Tartrate 5 mg 09/25/23 21:05 Zolpidem Tartrate 5 Mg Tablet PO HS PRN Sleep Respiratory Oxygen Delivery Method Room Air Oxygen Delivery Method Room Air Cardiology Heart Sounds Strong,Regular Bowels Bowel Pattern No Bowel Movement Renal Bladder Pattern Continent Bladder Pattern Continent
--- NOTE | 2023-09-28 08:50 | PM.OBPN ---
OB - PN: Subj Subjective Interval history: lower leg swelling is what is bothering her the most, right foot more than the left Otherwise pain well controlled Patient comments: pain well controlled and tolerating diet [place] infant status: doing well Exam Constitutional Vital Signs, click to edit/add: Last Vital Signs Temp 97.4 F L 09/27/23 07:30 Pulse 68 09/28/23 04:09 Resp 16 09/28/23 00:15 BP 135/79 09/28/23 04:09 Pulse Ox 97 09/26/23 19:52 O2 Del Method Room Air 09/28/23 00:15 GI Common normals: Normal to inspection, nondistended, normoactive bowel sounds present Palpation: soft Other: Fundus firm below umbilicus Incision dry and intact with steri strips Other: Fundus firm below umbilicus OB - PN: A/P Assessment and Plan (1) premature rupture of membranes, unspecified as to length of time between rupture and onset of labor, third trimester: Plan BP stable 130s-140s/70s-80s Discussed generalized swelling and expectations Hopeful discharge to home tomorrow Plan - Plan: routine postop care Time Spent with Patient Time: Total time spent is greater than 50% in coordination of care (as documented) at patient's floor/unit and/or counseling patient: Total time spent with greater than 50% in coordination of care (as documented) at patient's floor/unit and/or counseling patient: less than 15 minutes
[2023-09-28] MEDS: ACETAMINOPHEN 500 MG TABLET 1000 MG PO ×2 (08:55→20:00)
[2023-09-28] MEDS: DOCUSATE SODIUM 100 MG CAPSULE PO ×2 (08:56→21:37)
[2023-09-28] MEDS: FAMOTIDINE 20 MG TABLET 10 MG PO ×3 (08:56→21:37)
[2023-09-28] MEDS: CALCIUM CARBONATE 500 MG (200MG ELEMENTAL) TAB CHEW PO (11:27)
[2023-09-29] VITALS (53 sets, daily range): BP systolic 118–207; BP diastolic 58–114; PULSE 48–99; RESP 14–18; TEMP 36.1–36.6
[2023-09-29] MEDS: LABETALOL HCL 20 MG/4 ML SYRINGE IVP ×4 (01:42→05:10)
[2023-09-29] MEDS: OXYCODONE HCL/ACETAMINOPHEN 5MG/325MG 1 TAB PO (01:48)
[2023-09-29] MEDS: MAGNESIUM SULFATE IN WATER 4 GM/100 ML PIGGYBACK IV (02:22)
[2023-09-29] MEDS: MAGNESIUM SULFATE IN WATER 40 GM/1,000 ML IV.SOLN IV ×2 (02:50→21:48)
[2023-09-29] MEDS: 0.9 % SODIUM CHLORIDE 1,000 ML 75 ML IV ×2 (02:50→19:01)
[2023-09-29] MEDS: ACETAMINOPHEN 500 MG TABLET 1000 MG PO ×2 (06:18→16:12)
[2023-09-29] MEDS: LABETALOL HCL 200 MG TABLET PO ×3 (08:02→23:53)
[2023-09-29 08:56] LABS: Basophils Absolute Auto 0.1 10^3/uL (0.0-0.1); Basophils Percent Auto 0.4 % (0.2-2.0); Eosinophils Absolute Auto 0.2 10^3/uL (0.0-0.7); Eosinophils Percent Auto 1.3 % (0.9-7.0); Hematocrit 31.6 % (36.0-48.0); Hemoglobin 10.4 g/dL (12.0-16.0); Immature Granulocytes Pct Auto 1.2 % (0.0-0.5); Lymphocytes Absolute Auto 2.4 10^3/uL (1.2-3.8); Lymphocytes Percent Auto 14.6 % (20.5-60.0); Mean Corpuscular HGB Conc 32.9 g/dL (29.9-35.2); Mean Corpuscular Hemoglobin 28.7 pg (26.7-34.0); Mean Corpuscular Volume 87.1 fL (81.0-99.0); Mean Platelet Volume 10.6 fL (9.5-13.5); Monocytes Absolute Auto 0.9 10^3/uL (0.3-0.8); Monocytes Percent Auto 5.5 % (1.7-12.0); Neutrophils Absolute Auto 12.6 10^3/uL (1.4-6.5); Platelet Count 282 10^3/uL (150-450); Red Blood Count 3.63 10^6/uL (4.20-5.40); Red Cell Distribution Width 13.2 % (11.0-15.0); White Blood Count 16.4 10^3/uL (4.0-11.0)
[2023-09-29 09:04] LABS: Estimated GFR (African America >60 (>=60); Estimated GFR (Non-African Ame >60 (>=60)
[2023-09-29 09:11] LABS: INR <0.93; Partial Thromboplastin Time 25.9 sec (22.3-36.2); Prothrombin Time 9.2 sec (9.0-11.6)
[2023-09-29 09:23] LABS: Alanine Aminotransferase 15 U/L (14-59); Aspartate Amino Transferase 19 U/L (15-37); Uric Acid 6.9 mg/dL (2.6-6.0)
--- NOTE | 2023-09-29 09:30 | PC.NURSE ---
See paper documentation for further assessment and documentation.
[2023-09-29] MEDS: DOCUSATE SODIUM 100 MG CAPSULE PO ×2 (11:35→21:33)
--- NOTE | 2023-09-29 19:16 | W.PC.ACHO ---
Registration Status: ADM IN Primary Language: Finnish Preferred Language: Finnish Active Medications Generic Name Dose Route Start Last Admin Trade Name Freq PRN Reason Stop Dose Admin Acetaminophen 1,000 mg 09/25/23 21:05 09/29/23 16:12 Acetaminophen 500 Mg Tablet PO 1,000 mg Q6H PRN Administration Pain Al Hydroxide/Mg Hydroxide 2,400 mg 09/26/23 12:39 Magnesium Hydroxide 2,400 Mg/10 Ml Oral.Susp PO Q6H PRN Dyspepsia Calcium Carbonate 500 mg 09/25/23 21:05 09/28/23 11:27 Calcium Carbonate 500 Mg (200mg Elemental) Tab Chew PO 500 mg ACHS PRN Administration Heartburn Calcium Gluconate 1,000 mg 09/29/23 01:05 Calcium Gluconate 1,000 Mg/10 Ml Vial IVP ONCE PRN Mag Toxicity Docusate Sodium 100 mg 09/27/23 09:00 09/29/23 11:35 Docusate Sodium 100 Mg Capsule PO 100 mg BID ASHLEY Administration Enoxaparin Sodium 40 mg 09/26/23 22:00 09/29/23 09:38 Enoxaparin Sodium 40 Mg/0.4 Ml Syringe SUBQ Not Given Q24H ASHLEY Famotidine 10 mg 09/26/23 21:00 09/29/23 11:35 Famotidine 20 Mg Tablet PO Not Given BID ASHLEY Sodium Chloride 1,000 mls @ 125 mls/hr 09/26/23 13:30 Sodium Chloride 0.9% 1,000 Ml IV .Q8H ASHLEY Lactated Ringer's 1,000 mls @ 50 mls/hr 09/26/23 12:35 09/26/23 12:35 Lactated Ringers IV 50 mls/hr .Q20H ASHLEY Administration Sodium Chloride 1,000 mls @ 75 mls/hr 09/29/23 01:15 09/29/23 19:01 Sodium Chloride 0.9% 1,000 Ml IV 75 mls/hr .[id number] ASHLEY Administration Magnesium Sulfate 40 gm in 1,000 mls @ 50 mls/hr 09/29/23 01:15 09/29/23 02:50 Magnesium Sulf 40 G/1,000 Ml IV 50 mls/hr Q13H ASHLEY Administration Labetalol HCl 20 mg 09/29/23 00:45 09/29/23 05:10 Labetalol Hcl 20 Mg/4 Ml Syringe IVP 20 mg Q10M PRN Administration Hypertension Labetalol HCl 200 mg 09/29/23 16:00 09/29/23 16:01 Labetalol Hcl 200 Mg Tablet PO 200 mg TID@0000,0800,1600 ASHLEY Administration Ondansetron HCl 4 mg 09/26/23 12:39 Ondansetron Pf 4 Mg/2 Ml Vial IV Q6H PRN Nausea And Vomiting Ondansetron HCl 4 mg 09/26/23 12:39 09/27/23 10:47 Ondansetron 4 Mg Rapdis Tablet PO 4 mg Q6H PRN Administration Nausea And Vomiting Oxycodone/Acetaminophen 1 tab 09/26/23 12:39 09/29/23 01:48 Oxycodone Hcl/Acetaminophen 5mg/325mg PO 1 tab Q4H PRN Administration Pain Scale 4-6 Oxycodone/Acetaminophen 2 tab 09/26/23 12:39 Oxycodone Hcl/Acetaminophen 5mg/325mg PO Q4H PRN Pain Scale 7-10 Senna 17.2 mg 09/26/23 20:00 Sennosides 8.6 Mg Tablet PO QHS PRN Constipation Simethicone 80 mg 09/26/23 12:39 09/27/23 09:07 Simethicone 80 Mg Tab.Chew PO 80 mg QID PRN Administration Abdominal Distention Zolpidem Tartrate 5 mg 09/25/23 21:05 Zolpidem Tartrate 5 Mg Tablet PO HS PRN Sleep IV Insertion/Site Date of IV Line Insertion [20g 09/29/23 left Antecubital] Date of IV Line Insertion [18g 09/29/23 right Antecubital] IV Insertion Time [20g left 01:20 Antecubital] IV Insertion Time [18g right 01:00 Antecubital] Respiratory Oxygen Delivery Method Room Air Oxygen Delivery Method Room Air Oxygen Delivery Method Room Air Oxygen Delivery Method Room Air Oxygen Delivery Method Room Air Oxygen Delivery Method Room Air Oxygen Delivery Method Room Air Cardiology Heart Sounds Strong,Regular Heart Sounds Strong,Regular Bowels Bowel Pattern No Bowel Movement Date of Last Bowel Movement 09/29/23 Renal Bladder Pattern Continent Bladder Pattern Continent Bladder Pattern Continent
[2023-09-29] MEDS: ENOXAPARIN SODIUM 40 MG/0.4 ML SYRINGE SUBQ (21:33)
[2023-09-30] VITALS (20 sets, daily range): BP systolic 131–195; BP diastolic 76–97; PULSE 53–76; RESP 16–18; TEMP 36.1–37.3; O2SAT 97–99
[2023-09-30] MEDS: ACETAMINOPHEN 500 MG TABLET 1000 MG PO ×3 (02:24→22:14)
--- NOTE | 2023-09-30 07:39 | P.OBPN_ITS ---
OB - PN: Subj Subjective Interval history: lower leg swelling is what is bothering her the most, right foot more than the left Otherwise pain well controlled Patient comments: no complaints and pain well controlled [place] infant status: doing well Exam Constitutional Vital Signs, click to edit/add: Last Vital Signs Temp 97.6 F 09/30/23 04:05 Pulse 71 09/30/23 04:07 Resp 16 09/30/23 04:05 BP 159/89 H 09/30/23 04:07 Pulse Ox 97 09/26/23 19:52 O2 Del Method Room Air 09/30/23 04:05 Common normals: no apparent distress HENMT Common normals: normocephalic Eye Common normals: EOMs intact bilaterally Neck & C-Spine Common normals: full ROM and no lymphadenopathy Lymph Lymphatic: no lymphadenopathy noted Chest Common normals: inspection of chest normal and inspection of breasts normal Respiratory Common normals: normal respiratory effort Cardio Common normals: regular rate, regular rhythm and no murmurs Rate: regular rate Rhythm: regular rhythm GI Common normals: Normal to inspection, nondistended, normoactive bowel sounds present Common normals: no CVA tenderness Back & Pelvis Common normals: no CVA tenderness Extremity Common normals: normal to inspection and full ROM Neuro Common normals: oriented x3 Psych Common normals: mental status grossly normal, thought process normal, cooperative, affect normal and speech normal Results Labs Labs: Short CBC 09/29/23 Range/Units 08:45 WBC 16.4 H (4.0-11.0) 10^3/uL Hgb 10.4 L (12.0-16.0) g/dL Hct 31.6 L (36.0-48.0) % Plt Count 282 (150-450) 10^3/uL BMP 09/29/23 08:45 BUN 12.0 Creatinine 0.88 Liver Function 09/29/23 Range/Units 08:45 AST 19 (15-37) U/L ALT 15 (14-59) U/L OB - PN: A/P Assessment and Plan (1) premature rupture of membranes, unspecified as to length of time between rupture and onset of labor, third trimester: Plan - day: 4 Plan: discharge home Time Spent with Patient Time: Total time spent is greater than 50% in coordination of care (as documented) at patient's floor/unit and/or counseling patient: Total time spent with greater than 50% in coordination of care (as documented) at patient's floor/unit and/or counseling patient: less than 15 minutes
--- NOTE | 2023-09-30 07:49 | P.DS_ITS ---
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 OB - DS: Summary Peripartum Data - Procedures: Procedures Operation Date: 09/26/23 11:30 Actual Procedure Side Surgeon p Not Applicable Ramírez Alas DO Peripartum Data - Vaginal Delivery Procedures: Procedures Operation Date: 09/26/23 11:30 Actual Procedure Side Surgeon p Not Applicable Ramírez Alas DO Complications complications: other (elevated blood pressure, magnesium sulfate ) Delivery method: section Gender: female Discharge plan: home Status at Discharge Functional status at discharge: independent ambulation Overall status at discharge: patient is progressing back to baseline Time Spent with Patient Time attestation: Total time spent providing and/or coordinating discharge services: Time spent: less than 30 minutes Exam Constitutional Vital Signs, click to edit/add: Last Vital Signs Temp 97.6 F 09/30/23 04:05 Pulse 71 09/30/23 04:07 Resp 16 09/30/23 04:05 BP 159/89 H 09/30/23 04:07 Pulse Ox 97 09/26/23 19:52 O2 Del Method Room Air 09/30/23 04:05 Common normals: no apparent distress and oriented x3 HENMT Common normals: normocephalic Eye Common normals: EOMs intact bilaterally Neck & C-Spine Common normals: full ROM General: normal visual inspection Lymph Lymphatic: no lymphadenopathy noted Chest Common normals: inspection of chest normal Respiratory Common normals: normal respiratory effort and clear to auscultation bilaterally Effort & inspection: able to speak in complete sentences and symmetric chest movement Auscultation: clear to auscultation bilaterally Cardio Common normals: regular rate, regular rhythm and no murmurs Rate: regular rate Rhythm: regular rhythm GI Common normals: Normal to inspection, nondistended, normoactive bowel sounds present Auscultation: normoactive bowel sounds Palpation: soft Common normals: no CVA tenderness Back & Pelvis Common normals: no CVA tenderness Extremity Common normals: normal to inspection and full ROM Neuro Common normals: oriented x3 Psych Common normals: mental status grossly normal, thought process normal, cooperative, affect normal, speech normal and activity/motor behavior normal DS: Data Data Completed and Pending Labs on day of discharge: Labs from last 24 hours 09/29/23 08:45 WBC 16.4 H RBC 3.63 L Hgb 10.4 L Hct 31.6 L MCV 87.1 MCH 28.7 MCHC 32.9 RDW 13.2 Plt Count 282 MPV 10.6 Neut % (Auto) 77.0 H Lymph % (Auto) 14.6 L Navarro % (Auto) 5.5 Eos % (Auto) 1.3 Baso % (Auto) 0.4 Neut # (Auto) 12.6 H Lymph # (Auto) 2.4 [place] # (Auto) 0.9 H Eos # (Auto) 0.2 Baso # (Auto) 0.1 Abs Immat Gran (auto) 0.20 H Imm/Tot Granulo (auto) 1.2 H PT 9.2 INR <0.93 APTT 25.9 Fibrinogen 332 BUN 12.0 Creatinine 0.88 Est GFR ( Amer) >60 Est GFR (Non-Af Amer) >60 Uric Acid 6.9 H AST 19 ALT 15 Discharge Plan Discharge Disposition: Home, Self-Care Condition: Good Discharge Medications: New labetalol 200 mg Tablet 200 mg PO TID 30 Days Qty: 90 0RF oxycodone-acetaminophen 5-325 mg Tablet 1 tab PO Q8H PRN (Reason: Pain Scale 4-6) 7 Days Qty: 20 0RF docusate sodium 100 mg Capsule 100 mg PO BID 30 Days Qty: 60 2RF Discontinued ondansetron 8 mg tablet,disintegrating 8 mg PO PRN PRN (Reason: nausea and vomiting) Activity: increase activity as tolerated Diet: advance to your usual diet Patient Instructions: (DC) Forms: Portal Instructions
[2023-09-30] MEDS: LABETALOL HCL 200 MG TABLET PO ×3 (07:50→23:59)
--- NOTE | 2023-09-30 07:50 | W.PC.ACHO ---
Registration Status: ADM IN Primary Language: Ivorian Preferred Language: Ivorian Active Medications Generic Name Dose Route Start Last Admin Trade Name Freq PRN Reason Stop Dose Admin Acetaminophen 1,000 mg 09/25/23 21:05 09/30/23 02:24 Acetaminophen 500 Mg Tablet PO 1,000 mg Q6H PRN Administration Pain Al Hydroxide/Mg Hydroxide 2,400 mg 09/26/23 12:39 Magnesium Hydroxide 2,400 Mg/10 Ml Oral.Susp PO Q6H PRN Dyspepsia Calcium Carbonate 500 mg 09/25/23 21:05 09/28/23 11:27 Calcium Carbonate 500 Mg (200mg Elemental) Tab Chew PO 500 mg ACHS PRN Administration Heartburn Calcium Gluconate 1,000 mg 09/29/23 01:05 Calcium Gluconate 1,000 Mg/10 Ml Vial IVP ONCE PRN Mag Toxicity Docusate Sodium 100 mg 09/27/23 09:00 09/29/23 21:33 Docusate Sodium 100 Mg Capsule PO 100 mg BID ASHLEY Administration Enoxaparin Sodium 40 mg 09/26/23 22:00 09/29/23 21:33 Enoxaparin Sodium 40 Mg/0.4 Ml Syringe SUBQ 40 mg Q24H ASHLEY Administration Famotidine 10 mg 09/26/23 21:00 09/29/23 23:09 Famotidine 20 Mg Tablet PO Not Given BID ASHLEY Sodium Chloride 1,000 mls @ 125 mls/hr 09/26/23 13:30 Sodium Chloride 0.9% 1,000 Ml IV .Q8H ASHLEY Lactated Ringer's 1,000 mls @ 50 mls/hr 09/26/23 12:35 09/26/23 12:35 Lactated Ringers IV 50 mls/hr .Q20H ASHLEY Administration Sodium Chloride 1,000 mls @ 75 mls/hr 09/29/23 01:15 09/29/23 19:01 Sodium Chloride 0.9% 1,000 Ml IV 75 mls/hr .[id number] ASHLEY Administration Magnesium Sulfate 40 gm in 1,000 mls @ 50 mls/hr 09/29/23 01:15 09/29/23 21:48 Magnesium Sulf 40 G/1,000 Ml IV 50 mls/hr Q13H ASHLEY Administration Labetalol HCl 20 mg 09/29/23 00:45 09/29/23 05:10 Labetalol Hcl 20 Mg/4 Ml Syringe IVP 20 mg Q10M PRN Administration Hypertension Labetalol HCl 200 mg 09/29/23 16:00 09/29/23 23:53 Labetalol Hcl 200 Mg Tablet PO 200 mg TID@0000,0800,1600 ASHLEY Administration Ondansetron HCl 4 mg 09/26/23 12:39 Ondansetron Pf 4 Mg/2 Ml Vial IV Q6H PRN Nausea And Vomiting Ondansetron HCl 4 mg 09/26/23 12:39 09/27/23 10:47 Ondansetron 4 Mg Rapdis Tablet PO 4 mg Q6H PRN Administration Nausea And Vomiting Oxycodone/Acetaminophen 1 tab 09/26/23 12:39 09/29/23 01:48 Oxycodone Hcl/Acetaminophen 5mg/325mg PO 1 tab Q4H PRN Administration Pain Scale 4-6 Oxycodone/Acetaminophen 2 tab 09/26/23 12:39 Oxycodone Hcl/Acetaminophen 5mg/325mg PO Q4H PRN Pain Scale 7-10 Senna 17.2 mg 09/26/23 20:00 Sennosides 8.6 Mg Tablet PO QHS PRN Constipation Simethicone 80 mg 09/26/23 12:39 09/27/23 09:07 Simethicone 80 Mg Tab.Chew PO 80 mg QID PRN Administration Abdominal Distention Zolpidem Tartrate 5 mg 09/25/23 21:05 Zolpidem Tartrate 5 Mg Tablet PO HS PRN Sleep Respiratory Oxygen Delivery Method Room Air Oxygen Delivery Method Room Air Oxygen Delivery Method Room Air Oxygen Delivery Method Room Air Oxygen Delivery Method Room Air Oxygen Delivery Method Room Air Oxygen Delivery Method Room Air Oxygen Delivery Method Room Air Cardiology Heart Sounds Strong,Regular Heart Sounds Strong,Regular Heart Sounds Strong,Regular Heart Sounds Strong,Regular Bowels Bowel Pattern No Bowel Movement Date of Last Bowel Movement 09/29/23 Date of Last Bowel Movement 09/29/23 Renal Bladder Pattern Continent Bladder Pattern Continent Bladder Pattern Continent Bladder Pattern Continent
[2023-09-30] MEDS: FUROSEMIDE 20 MG/2 ML VIAL IVP (11:29)
--- NOTE | 2023-09-30 17:15 | PC.NURSE ---
1620: CN notified of assessment and BP's since 1130. Order received to increase labetalol to 300 mg for next dose and through the night
--- NOTE | 2023-09-30 17:23 | PC.NURSE ---
1710: Recheck of BP after 1 hour of labetalol po administration- 191/88. CNM notified
[2023-09-30] MEDS: NIFEdipine 30 MG TAB.ER.24 PO (18:10)
--- NOTE | 2023-09-30 18:19 | PC.NURSE ---
1750: Dr Alas calls and report given of assessment and Bp's, medications and patient DTR's. I/O reported since lasix administration and patient without complaints of headache, blurred vision, dizziness or epigastric pain. Orders received and patient informed of plan of care. Spo2 spot checked as ordered at 97% x 60 seconds. Patient resting in bed and denies complaints.1809: procardia 30 XL given as ordered.171: Dr Alas present at patient bedside and auscultates lung sounds and talking with patient and family.
[2023-09-30 18:54] LABS: Basophils Absolute Auto 0.1 10^3/uL (0.0-0.1); Basophils Percent Auto 0.3 % (0.2-2.0); Eosinophils Absolute Auto 0.4 10^3/uL (0.0-0.7); Eosinophils Percent Auto 2.9 % (0.9-7.0); Hematocrit 28.3 % (36.0-48.0); Hemoglobin 9.5 g/dL (12.0-16.0); Immature Granulocytes Pct Auto 0.7 % (0.0-0.5); Lymphocytes Absolute Auto 2.6 10^3/uL (1.2-3.8); Lymphocytes Percent Auto 16.9 % (20.5-60.0); Mean Corpuscular HGB Conc 33.6 g/dL (29.9-35.2); Mean Corpuscular Hemoglobin 29.4 pg (26.7-34.0); Mean Corpuscular Volume 87.6 fL (81.0-99.0); Mean Platelet Volume 10.4 fL (9.5-13.5); Monocytes Absolute Auto 0.9 10^3/uL (0.3-0.8); Monocytes Percent Auto 5.8 % (1.7-12.0); Neutrophils Absolute Auto 11.2 10^3/uL (1.4-6.5); Neutrophils Percent Auto 73.4 % (43.0-75.0); Platelet Count 291 10^3/uL (150-450); Red Blood Count 3.23 10^6/uL (4.20-5.40); Red Cell Distribution Width 13.6 % (11.0-15.0); White Blood Count 15.2 10^3/uL (4.0-11.0)
[2023-09-30 19:09] LABS: Alanine Aminotransferase <6 U/L (14-59); Albumin Globulin Ratio 0.6; Alkaline Phosphatase 85 U/L (46-116); Anion Gap 9.7; Aspartate Amino Transferase 16 U/L (15-37); BUN Creatinine Ratio 13.6; Bilirubin Total 0.1 mg/dL (0.2-1.0); Calcium 7.3 mg/dL (8.5-10.1); Carbon Dioxide 26.9 mmol/L (21.0-32.0); Chloride 105 mmol/L (98-107); Estimated GFR (African America >60 (>=60); Estimated GFR (Non-African Ame >60 (>=60); Globulin 3.5 g/dL; Glucose 103 mg/dL (74-106); Potassium 3.6 mmol/L (3.5-5.1); Sodium 138 mmol/L (136-145); Total Protein 5.5 g/dL (6.4-8.2)
--- NOTE | 2023-09-30 20:25 | PC.NURSE ---
Megnesium remains off.
[2023-09-30] MEDS: ENOXAPARIN SODIUM 40 MG/0.4 ML SYRINGE SUBQ (22:14)
[2023-09-30] MEDS: DOCUSATE SODIUM 100 MG CAPSULE PO (22:15)
[2023-09-30] MEDS: FAMOTIDINE 20 MG TABLET 10 MG PO (22:16)
[2023-10-01 01:26] VITALS: BP 168/92; PULSE 71
[2023-10-01 01:29] VITALS: BP 168/92; PULSE 60
[2023-10-01 05:29] VITALS: BP 155/89; PULSE 70
[2023-10-01 05:34] VITALS: BP 155/89; PULSE 70; RESP 18; TEMP 36.7; O2SAT 98
[2023-10-01] MEDS: ACETAMINOPHEN 500 MG TABLET 1000 MG PO ×2 (05:38→13:35)
--- NOTE | 2023-10-01 07:38 | PM.OBPN ---
OB - PN: Subj Subjective Interval history: lower leg swelling is what is bothering her the most, right foot more than the left Otherwise pain well controlled Patient comments: no complaints and pain well controlled [place] status: doing well Exam Constitutional Vital Signs, click to edit/add: Last Vital Signs Temp 98.1 F 10/01/23 05:34 Pulse 70 10/01/23 05:34 Resp 18 10/01/23 05:34 BP 155/89 H 10/01/23 05:34 Pulse Ox 98 10/01/23 05:34 O2 Del Method Room Air 10/01/23 05:34 Common normals: no apparent distress Respiratory Common normals: normal respiratory effort and clear to auscultation bilaterally Cardio Common normals: regular rate and regular rhythm GI Common normals: Normal to inspection, nondistended, normoactive bowel sounds present Extremity Common normals: no calf tenderness Results Labs Labs: Short CBC 09/30/23 Range/Units 18:42 WBC 15.2 H (4.0-11.0) 10^3/uL Hgb 9.5 L (12.0-16.0) g/dL Hct 28.3 L (36.0-48.0) % Plt Count 291 (150-450) 10^3/uL BMP 09/30/23 18:42 Sodium 138 Potassium 3.6 Chloride 105 Carbon Dioxide 26.9 BUN 14.0 Creatinine 1.03 H Glucose 103 Calcium 7.3 L Liver Function 09/30/23 Range/Units 18:42 Total Bilirubin 0.1 L (0.2-1.0) mg/dL AST 16 (15-37) U/L ALT <6 L (14-59) U/L Alkaline Phosphatase 85 (46-116) U/L Albumin 2.0 L (3.4-5.0) g/dL OB - PN: A/P Assessment and Plan (1) premature rupture of membranes, unspecified as to length of time between rupture and onset of labor, third trimester: Plan post hypertension, significant edemea, elevated creatinine-lasix given yesterday with 5-6 liters of urine output, add procardia 30mg xl for elevated bp, labs redrawn and reviewed, creatinine continued to be improved, bp improving, will continue to watch throughout the day, will continue pain control, possible dc home later today Plan - day: 5 Plan: routine postop care and discharge home Time Spent with Patient Time: Total time spent is greater than 50% in coordination of care (as documented) at patient's floor/unit and/or counseling patient: Total time spent with greater than 50% in coordination of care (as documented) at patient's floor/unit and/or counseling patient: 25 - 35 minutes
[2023-10-01 08:00] LABS: Fibrinogen 332 mg/dL
[2023-10-01 08:05] LABS: Estimated GFR (African America >60 (>=60); Estimated GFR (Non-African Ame >60 (>=60)
[2023-10-01 08:28] VITALS: BP 135/73; PULSE 71; RESP 16; TEMP 37
[2023-10-01] MEDS: FAMOTIDINE 20 MG TABLET 10 MG PO (08:32)
[2023-10-01] MEDS: DOCUSATE SODIUM 100 MG CAPSULE PO (08:32)
[2023-10-01] MEDS: LABETALOL HCL 200 MG TABLET PO (08:32)
[2023-10-01 13:35] VITALS: BP 152/84; PULSE 85
== END 2023-10-01 13:45 | disposition home or self-care (01) | DRG 787 ==
PROVIDERS: Obstetrics & Gynecology; Obstetrics & Gynecology Gynecology; Admitting Provider Pediatrics; Family Provider Family Medicine; PCP Family Medicine; Visit Provider Midwife
PROC: 10D00Z1 Extraction of Products of Conception, Low, Open Approach (ICD-10-PCS; CPT 59514; principal; 2023-09-26 11:30)
DX: O42.913 Preterm premature rupture of membranes, unspecified as to length of time between rupture and onset of labor, third trimester (principal); O12.23 Gestational edema with proteinuria, third trimester; O61.0 Failed medical induction of labor; O16.5 Unspecified maternal hypertension, complicating the puerperium; O99.893 Other specified diseases and conditions complicating puerperium; R94.4 Abnormal results of kidney function studies; Z3A.35 35 weeks gestation of pregnancy; Z37.0 Single live birth; Z90.49 Acquired absence of other specified parts of digestive tract; Z83.3 Family history of diabetes mellitus; Z82.49 Family history of ischemic heart disease and other diseases of the circulatory system
CPT/HCPCS: 36415; 59050; 76815; 80048; 80053; 80069; 80076; 80307; 82565; 84112; 84450; 84460; 84520; 84550; 85025; 85027; 85384; 85610; 85730; 86850; 86900; 86901; 88307; 94667; 94668; 96365; 96366; 96367; 96368; 96372; 96375; 96376; J0702

== ENCOUNTER 2023-10-03 08:47 | Outpatient (OUT) | payer OTHER, SELFPAY ==
--- NOTE | 2023-10-03 15:51 | PC.NURSE ---
Abram Gaines and 7 day old Shannon arrive for follow up. Parents states we doing ok Both tired but doing well per their opinion. Liana appears well, pink color, less facial edema denies discomfort. No headache, visual disturbances, epigastric pain. Admits to being hungry , normal BM, and voiding. Edema of lower legs evident less pitting +3, softer than at discharge. States I can wear my shoes today. Liana appears to be in good spirits. Abram supportive and helping with the baby as much as possible. Shannon pink/jaundiced, transcutaneous bili 12.2, decrease from discharge. Baby reported to eat every 2 hours taking 35-40 ml per feed. Has wet diaper with each feed and yellow brown stool 5-6 times in 24 hours. Baby not really interested in latching at the breast at 35 weeks GA. Mom coninues to pump and feed via bottle. Pumping8+ times in 24 hours. Discussed ways to decrease workload of pumping. Given Steam bags for pump parts and bottles. Storing milk properly and rotating bottles as needed. Parents do not have questions at this time. Prefers to return for weight check and supply check. Leaves ambulatory Of note Liana continues to take Labetolol as prescribed. Only using Tylenol for discomfort. Plans to keep scheduled visit with Dr Alas for BP check and incision check. Aware to call for questions or concerns.
[2023-10-03 15:54] VITALS: BP 135/84; PULSE 70; RESP 18; TEMP 36.8; O2SAT 98
== END 2023-10-03 16:04 | disposition home or self-care (01) ==
LOC: FBCO 08:48
PROVIDERS: Family Provider Family Medicine; PCP Family Medicine; Visit Provider Midwife
DX: Z39.2 Encounter for routine postpartum follow-up (principal)

== ENCOUNTER 2023-10-10 08:24 | Outpatient (OUT) | payer OTHER, SELFPAY ==
--- NOTE | 2023-10-10 11:14 | PC.NURSE ---
Abram Gaines and 2 week old Shannon arrive for support. Mom states feeling better as BP is stablizing and 1 medication to be stopped today. States she pumps every 2-3 hours,and obtains 20-50ml each feed combined. Parents are feeding via bottle the 50 ml per feed. Usually gives at least one feed of Sim sensitive. Infant weight is 5.6% below weight at 2 weeks. Encouraged to increase feeding amount to 60-65 ml. Mom wants to try direct with baby as that is the goal. Shannon in cross cradle and football position and will not latch or attempt to latch. Shield used as well and no successful latch. Mom will continue to to pump and feed and keep skin to skin as much as able, as well as offer breast for some sleep nursing to see if able to achieve a latch. Will call for additional support. Of note: Liana has Type 2 breasts with wide space between and mazariegos breast on top with little tissue underneath. Nipple point directly down and is difficult to latch. Previously breasts full and round with edema, pt has diuresed and edema is minimal. ELVA to contact Dr Karina Hull office to discuss fortified human milk for Shannon. ELVA called and reviewed possible use with Liana and is willing to try if would improve weight gain for baby.
== END 2023-10-10 11:15 | disposition home or self-care (01) ==
LOC: FBCO 08:26
PROVIDERS: Family Provider Family Medicine; PCP Family Medicine; Visit Provider Midwife
DX: Z39.1 Encounter for care and examination of lactating mother (principal)
CPT/HCPCS: G0463

== ENCOUNTER 2023-10-15 14:46 | Outpatient (OUT) | payer OTHER, SELFPAY ==
--- NOTE | 2023-10-15 15:18 | PC.NURSE ---
1400. Liana and Sahnnon arrive for weight check infant is 2w and 5 days old. Delivered at 35+4 with feeding difficulties. Mom is now choosing to pump and feed. Mom demonstrates low supply as will pump 20 ml to 60 ml every 2 hours. Not consistent in amount obtained. generally receives breast milk and Sim sensitive when breast milk is not available. Parents are feeding her every 2 hours during the day, and every 3.5 during the night. Taking volume of 50 ml well, when parents attempt 60 ml has large regurg after feed. At 1245 10/15/2023 This abstract writer previously talked via phone to Elen Hays [employer] B[employer]ER from Dr Edwards office regarding fortified breast milk for Shannon. Initial request sent 10/10/2023 to office, COIL BINDER states Dr called in script for HMF to pharmacy. Unaware HMF not available and currently using Neosure to fortify breast milk. This information previously faxed to office 10/10/2023 with request for supplementation. No further discussion or interaction with Liana by the office at that time. Liana arrives today requesting weight check as office scheduled infants next appointment 10/23/2023. I just want to know if we are doing alright This abstract writer was requested to call COIL B[employer]ER with weight today for final decision on using Neosure to fortify breast milk. 3 messages at 1407, 1425, 1514 left for Elen Hays [employer] at [phone] to return call and 2 messages at 1410 and 1426 on front office radiology receptionist line [phone] to have [employer]ER return call. At this time no call have been returned Liana is aware to only start fortifying breast milk after feeding plan is approved by COIL BINDER or Dr Hull. 1540 This abstract writer calls Liana and advises to wait for call from office. Verbalized understanding.
== END 2023-10-15 15:42 | disposition home or self-care (01) ==
LOC: FBCO 14:49
PROVIDERS: Family Provider Family Medicine; PCP Family Medicine; Visit Provider Obstetrics & Gynecology
DX: Z39.1 Encounter for care and examination of lactating mother (principal)

== ENCOUNTER 2023-10-21 13:15 | Outpatient (OUT) | payer OTHER, SELFPAY ==
[2023-10-21 14:56] LABS: Alanine Aminotransferase 39 U/L (14-59); Albumin Globulin Ratio 0.9; Albumin Level 3.6 g/dL (3.4-5.0); Alkaline Phosphatase 101 U/L (46-116); Anion Gap 14.6; Aspartate Amino Transferase 24 U/L (15-37); BUN Creatinine Ratio 15.2; Bilirubin Total 0.4 mg/dL (0.2-1.0); Calcium 9.2 mg/dL (8.5-10.1); Carbon Dioxide 28.5 mmol/L (21.0-32.0); Chloride 101 mmol/L (98-107); Estimated GFR (African America >60 (>=60); Estimated GFR (Non-African Ame >60 (>=60); Globulin 4.1 g/dL; Glucose 121 mg/dL (74-106); Potassium 4.1 mmol/L (3.5-5.1); Sodium 140 mmol/L (136-145); Total Protein 7.7 g/dL (6.4-8.2)
== END 2023-10-21 13:16 | disposition home or self-care (01) ==
LOC: LAB 13:15
PROVIDERS: Family Provider Family Medicine; PCP Family Medicine; Visit Provider Obstetrics & Gynecology
DX: O16.3 Unspecified maternal hypertension, third trimester (principal)
CPT/HCPCS: 36415; 80053; 82565

== ENCOUNTER 2024-10-11 06:28 | Emergency (ER) | payer OTHER, SELFPAY ==
[2024-10-11 06:31] VITALS: BP 117/84; PULSE 89; TEMP 36.4; O2SAT 100; BMI 31.2
[2024-10-11 06:39] VITALS: O2SAT 100
--- NOTE | 2024-10-11 06:40 | PC.NURSE ---
Woke at 3am after rolling over in bed. States she has been in excruciating pain since that time. No known injury took Tylenol at 0400 with no relief No previous injury to the shoulder
--- OUTSIDE RECORDS SUMMARY | 2024-10-11 06:44 | XMS_ITS | CCD ---
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 Performed By: #### T SH reflex FT4, CMP, CBCAD #### [facility] [address], [place] [id number] MCH (RBC) [Entitic mass] 30.1 pg Normal 27.0-33.0 [facility] Specialist Comment on above: Performed By: #### T SH reflex FT4, CMP, CBCAD #### [facility] [address], [place] [id number] MCHC (RBC) [Mass/Vol] 34.1 g/dL Normal 32.0-36.0 [facility] Specialist Comment on above: Performed By: #### T SH reflex FT4, CMP, CBCAD #### [facility] [address], [place] [id number] MCV (RBC) [Entitic vol] 88 fL Normal 80-100 [facility] Specialist Comment on above: Performed By: #### T SH reflex FT4, CMP, CBCAD #### [facility] [address], [place] [id number] Monocytes (Bld) [#/Vol] 0.4 10*3/uL Normal 0.2-0.9 [facility] Specialist Comment on above: Performed By: #### T SH reflex FT4, CMP, CBCAD #### [facility] [address], [place] [id number] Monocytes/100 WBC (Bld) 6.5 % Normal [facility] Specialist Comment on above: Performed By: #### T SH reflex FT4, CMP, CBCAD #### [facility] [address], [place] [id number] Neutrophils (Bld) [#/Vol] 2.9 10*3/uL Normal 1.5-7.8 [facility] Specialist Comment on above: Performed By: #### T SH reflex FT4, CMP, CBCAD #### [facility] [address], [place] [id number] Neutrophils/100 WBC (Bld) 53.0 % Normal [facility] Specialist Comment on above: Performed By: #### T SH reflex FT4, CMP, CBCAD #### [facility] [address], [place] [id number] Platelet mean volume (Bld) [Entitic vol] 10.40 fL Normal 7.50-12.50 [facility] Specialist Comment on above: Performed By: #### T SH reflex FT4, CMP, CBCAD #### [facility] [address], [place] [id number] Platelets (Bld) [#/Vol] 318 10*3/uL Normal 140-400 [facility] Specialist Comment on above: Performed By: #### T SH reflex FT4, CMP, CBCAD #### [facility] [address], [place] [id number] RBC (Bld) [#/Vol] 4.78 10*6/uL Normal 3.90-5.20 [facility] Energy Infrastructure Engineer Comment on above: Performed By: #### T SH reflex FT4, CMP, CBCAD #### [facility] [address], [place] [id number] RDW-SD 38.5 fL Normal 37.0-50.0 [facility] [employer] Infrastructure Engineer Comment on above: Performed By: #### T SH reflex FT4, CMP, CBCAD #### [facility] [address], [place] [id number] WBC (Bld) [#/Vol] 5.5 10*3/uL Normal 3.8-11.0 [facility] Energy Infrastructure Engineer Comment on above: Performed By: #### T SH reflex FT4, CMP, CBCAD #### [facility] [address], [place] [id number] Comprehensive Metabolic [facility] 02-08-2022 Albumin [Mass/Vol] 4.5 g/dL Normal 3.6-5.1 [facility] Energy Infrastructure Engineer Comment on above: Performed By: #### T SH reflex FT4, CMP, CBCAD #### [facility] [address], [place] [id number] Albumin/Globulin [Mass ratio] 1.9 {ratio} Normal 1.0-2.5 [facility] [employer] Infrastructure Engineer Comment on above: Performed By: #### T SH reflex FT4, CMP, CBCAD #### [facility] [address], [place] [id number] ALP [Catalytic activity/Vol] 45 U/L Normal 35-119 [facility] [employer] Infrastructure Engineer Comment on above: Performed By: #### T SH reflex FT4, CMP, CBCAD #### [facility] [address], [place] [id number] ALT [Catalytic activity/Vol] 17 U/L Normal 6-33 [facility] [employer] Infrastructure Engineer Comment on above: Result Comment: 10/24 Female reference range changed. Performed By: #### T SH reflex FT4, CMP, CBCAD #### [facility] [address], [place] [id number] Anion gap [Moles/Vol] 18 mmol/L Normal 12-20 [place] [employer] Infrastructure Engineer Comment on above: Result Comment: Efflester ctive 11/29/2019 reference range changed. Performed By: #### T SH reflex FT4, CMP, CBCAD #### [facility] [address], [place] [id number] AST [Catalytic activity/Vol] 19 U/L Normal 9-34 [facility] Comment on above: Performed By: #### T SH reflex FT4, CMP, CBCAD #### [facility] [address], [place] [id number] Bilirubin [Mass/Vol] 0.31 mg/dL Normal 0.30-1.20 [facility] Specialist Comment on above: Performed By: #### T SH reflex FT4, CMP, CBCAD #### [facility] [address], [place] [id number] BUN/CREA 17 Ratio Normal 6-22 [facility] Comment on above: Performed By: #### T SH reflex FT4, CMP, CBCAD #### [facility] [address], [place] [id number] Calcium [Mass/Vol] 9.4 mg/dL Normal 8.6-10.2 [facility] Comment on above: Performed By: #### T SH reflex FT4, CMP, CBCAD #### [facility] [address], [place] [id number] Chloride [Moles/Vol] 103 mmol/L Normal 98-107 [facility] Specialist Comment on above: Performed By: #### T SH reflex FT4, CMP, CBCAD #### [facility] [address], [place] [id number] CO2 [Moles/Vol] 23 mmol/L Normal 20-31 [facility] Comment on above: Performed By: #### T SH reflex FT4, CMP, CBCAD #### [facility] [address], [place] [id number] Creatinine [Mass/Vol] 0.8 mg/dL Normal 0.6-1.4 [facility] Comment on above: Performed By: #### T SH reflex FT4, CMP, CBCAD #### [facility] [address], [place] [id number] eGFRAA 119 mL/min/1.73m2 Normal >60 Bhupinder salamanca [place] [employer] Infrastructure Engineer Comment on above: Performed By: #### T SH reflex FT4, CMP, CBCAD #### [facility] [address], [place] [id number] eGFRNAA 99 mL/min/1.73m2 Normal >60 [facility] Energy Infrastructure Engineer Comment on above: Performed By: #### T SH reflex FT4, CMP, CBCAD #### [facility] [address], [place] [id number] Globulin (S) [Mass/Vol] 2.4 g/dL Normal 1.9-3.7 [facility] [employer] Infrastructure Engineer Comment on above: Performed By: #### T SH reflex FT4, CMP, CBCAD #### [facility] [address], [place] [id number] Glucose [Mass/Vol] 92 mg/dL Normal 65-99 [facility]an [place] [employer] Infrastructure Engineer Comment on above: Result Comment: For FASTING Glucose --- ADA reference ranges: Normal 65-99 mg/dl Prediabetes 100-125 Diabetes >/= 126 Performed By: #### T SH reflex FT4, CMP, CBCAD #### [facility] [address], [place] [id number] Potassium [Moles/Vol] 4.3 mmol/L Normal 3.5-5.5 [facility] [employer] Infrastructure Engineer Comment on above: Performed By: #### T SH reflex FT4, CMP, CBCAD #### [facility] [address], [place] [id number] Protein [Mass/Vol] 6.9 g/dL Normal 6.1-8.1 Antonio spears [place] [employer] Infrastructure Engineer Comment on above: Performed By: #### T SH reflex FT4, CMP, CBCAD #### [facility] [address], [place] [id number] Sodium [Moles/Vol] 139 mmol/L Normal 135-146 Antonio spears [place] [employer] Infrastructure Engineer Comment on above: Performed By: #### T SH reflex FT4, CMP, CBCAD #### [facility] [address], [place] [id number] Urea nitrogen [Mass/Vol] 13 mg/dL Normal 7-25 [facility] [employer] Infrastructure Engineer Comment on above: Performed By: #### T SH reflex FT4, CMP, CBCAD #### [facility] [address], [place] [id number] TSH w/ Reflex to Free T4on 0 02-08-2022 TSH 1.140 uIU/mL Normal 0.400-4.50 0 [facility] [employer] Infrastructure Engineer Comment on above: Performed By: #### T SH reflex FT4, CMP, CBCAD #### [facility] [address], [place] [id number] COVID Quick Testingon 2020 Result Negative [facility] Other Quick Strepon 08-22-2021 S. pyogenes Org specific cx Ql (Throat) Negative [facility] Other Quick Strep [place] [employer] Other Initial Visit (Rheumatology) on 03-06-2021 Initial Visit (Rheumatology) Diagnoses/Problems Assessed Arthralgia (719.40) (M25.50) Provider Impressions Assessment: Prior rashes and fever. I advised Liana and her mother that the illness seems to have resolved about 2 months ago and there is insufficient information for me to explain what it was. It is reasonable to consider autoimmune causes when an illness persists for a year, but today's history + exam and review of lab tests from 2020 does not reveal a diagnosis. Rather than pursue additional testing now the illness does not seem to be present, I suggested that Liana or her mother contact me if the illness returns so that laboratory testing can be done locally then. They agree with this plan. Plan: 1. Pt and her mother counseled about the above and all questions were answered. 2. They will contact our office if unexplained fevers or rashes return. 3. Rheumatology office followup as needed. CC: Dr. Kramer Chief Complaint NPV. Fevers on and off. Pain in hips and back. History of Present IllnessRheumatology consultation is requested by Dr. [facility] of [facility] for this 20 year old female. Today Liana is accompanied by her mother. They report that she was ill from Dec 2019-Dec 2020 but during the past 2 months the priro illness seems to have resolved. They report that during the year of illness Liana suffered from frequent unexplained fevers, intermittent rashes that accompanied the fever, malaise, fatigue, sore throat, arthralgias and myalgias. Laboratory resting by her Primary Care providers was repeatedly negative by their report (records not available for review). Liana was seen in Infectious Disease consultation by Dr. Kramer. Subsequent testing revealed a normal ESR, CBC and comprehensive metabolic profile. ASO antibodies were negative but anti-DNAase B were positive.SELINA was 1:40. Today Liana shows me a picture of the prior rash. On the day of the picture there was mottled erythema over much of the upper and mid back. Today Liana reports that she has some residual arthralgias, myalgias and fatigue but she has been able to work. The rashes and fevers have not occurred for the past 2 months. Details of the PMH, Past Surgical History, Family History and ROS are personally reviewed and are scanned separately into the electronic medical record today. See the scanned document for details. 1 1 Amended By: Xuan Nieto; Mar 06 2021 4:15 PM ESTReview of Systems As per the HPI, otherwise negative. Allergies NoKnown No Known Allergies Recorded By: Citlaly Alamo; 03/06/2021 11:42:29 AM Current Meds Medication NameInstruction Etonogestrel-Ethinyl Estradiol 0.12-0.015 MG/24HR Vaginal Ring Physical Exam General: appears well. Skin: no rash. Hair full. HEENT: sclerae clear. Musculoskeletal: No active synovitis in any joint. There is no synovial thickening or joint effusion in the MCPs or PIPs of the fingers. Fist and research contracts supervisor are good. Wrists show normal range of motion without synovial proliferation or joint effusion. Elbows show full extension with no synovial proliferation. Shoulder ROM is normal in abduction. The knees are cool with no synovial proliferation or joint effusion. The ankles show no synovial proliferation. + scattered myofascial tender points. Results/Data See HPI. 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 However, the narrative phrase printed from the coding software may appear abbreviated, or result in slightly different terminology. 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 TECHNIQUE: Renal ultrasonography. FINDINGS: Moderate right hydronephrosis is seen. Mild left hydronephrosis. No renal stones are seen. Normal renal parenchymal echogenicity bilaterally. Normal blood flow in both kidneys on Doppler. Resistive index in the right kidney is 0.56 and resistive index in the left kidney is 0.59. Right kidney measures 10.0 x 4.6 x 4.1 cm. The left kidney measures 11.2 x 6.1 x 4.3 cm. No bladder stones or obvious masses are seen. Normal jet of urine is seen on color Doppler through both right and left vesicoureteral junctions. Prevoid bladder volume is 279.5 mL and post void bladder volume is 16.4 mL. IMPRESSION: 1. Moderate right hydronephrosis. 2. Mild left hydronephrosis. 3. No significant residual urine in the bladder on postvoiding images. Final Dictated by: Little Bloom MD Dictated DT/TM: 06/15/19 8:09 Signed (Electronic Signature): Little Bloom MD 06/15/19 8:18 pm Technologist: Angelic BUI [facility] Progress Noteon 05-20-2018 HIM IP Note OR Heat Treat Technician [facility] KIDNEY W FLOW AND FUNCTIO N W PHARMACOLOGICAL INTERVENTIONon 03-05-2018 NM KIDNEY W FLOW AND FUNCTION W PHARMACOLOGICAL INTERVENTION EXAMINATION:NUCLEAR MEDICINE RENAL SCAN03/05/2018TECHNIQUE:Follo wing hydration, 3.0 mCi of Tc-99m-MAG3 was administered intravenously.40 mg of lasix was administered at approximately 18 mins. Dynamic flow andstandard sequential images of the kidneys were acquired in posteriorprojection.Renogram s of kidneys and cortices were generated and analyzed.COMPARISON:Similar exam 11/27/2017HISTORY:ORDERING SYSTEM PROVIDED HISTORY: Other hydronephrosisTECHNOLOGIST PROVIDED HISTORY:Ordering Physician Provided Reason for Exam: unspecified hydronephrosisFINDINGS:LEFT: Prompt perfusion is present. Prompt uptake and normal concentration intoprominent collecting systems. Rapid clearance of radiotracer prior to Lasixadministration. No significant cortical retention.RIGHT:Prompt perfusion is present. Prompt uptake and normal concentration intodilated collecting systems that rapidly clear after Lasix administration.The overall appearance is improved compared to the prior exam 11/27/2017.Split renal uptake is 49% on the left and 51% on the right.IMPRESSION: 1. No evidence of high-grade obstruction of the right kidney, improvedcompared to the prior exam 11/27/2017.2. Normal function of the left kidney.3. Split differential function is 49% on the left and 51% on the right.Interpreted by:Reagan Berry MDSigned by:Reagan Berry MD03/05/18inal result Normal [facility] US RENAL COMPLETEon 03-05-20 18 US RENAL COMPLETE EXAMINATION:RETROPER ITONEAL ULTRASOUND OF THE KIDNEYS AND URINARY BLADDER03/05/2018COMPARISON:R adiograms November 27, 2017.HISTORY:ORDERING SYSTEM PROVIDED HISTORY: Hydronephrosis, unspecified hydronephrosistypeFINDINGS:K idneys:The right kidney measures 9.9 cm in length and the left kidney measures 11.5cm in length.Mild hydronephrosis right kidney. No left-sided hydronephrosis. No contourdeforming mass, shadowing stone or cortical thinning. No free fluid.Bladder:Unremarkable appearance of the bladder. No significant post void residual.IMPRESSION: *Mild hydronephrosis right kidney. Finding appears to have been present onthe prior nuclear medicine renogram.Interpreted by:Patel Chang Jr., DOSigned by:Patel Chang Jr., [id number]//[id number] result Normal [facility] FL RETROGRADE PYELOGRAM RIGH Ton 12-29-2017 FL RETROGRADE PYELOGRAM RIGHT Radiology exam is complete. No Radiologist dictation. Please follow up with ordering provider. Final result Normal [facility] Discharge Summaryon 12-25-19 18 HIM IP Note OR Heat Treat Technician Normal [facility] Plan of Careon 12-25-2017 HIM IP Note OR Heat Treat Technician Normal [facility] Progress Noteon 12-25-2017 HIM IP Note OR Heat Treat Technician Normal [facility] XR ABDOMEN (KUB) (SINGLE AP VIEW)on 12-25-2017 XR ABDOMEN (KUB) (SINGLE AP VIEW) EXAMINATION:SUPINE VIEW(S) OF THE ABDOMEN12/24/2017 12:01 amCOMPARISON:Intraoperative views earlier same dayHISTORY:ORDERING SYSTEM PROVIDED HISTORY: check stent placementTECHNOLOGIST PROVIDED HISTORY:Reason for exam:->check stent placementFINDINGS:A right ureteral stent is present. The proximal portion is located in theexpected location of the right renal pelvis. The distal portion is locatedin the expected location of the urinary bladder. No calcifications areidentified along the course of the stent. There is gaseous distention of thestomach noted.IMPRESSION: Right ureteral stent present without adverse features evident.Interpreted by:NELLY Rollinsigned by:Rafa Nunes MD12/24/18Final result Normal [facility] Basic Metab w/rfx MGon 12-24 (cont.) Normal [facility] Comment on above: Result Comment: Aver age GFR for <20 years old not available.Chronic Kidney Disease: <60 mL/min/1.73sq mKidney failure: <15 mL/min/1.73sq meGFR calculated using average adult body mass. Additional eGFR calculator available at:[email or web address]_[email or web address] [address], [place] [id number] ([phone] Performed By: #### C BC, BMPX ####[facility] [address] [place] [address] Anion gap 15 mmol/L Normal 9-17 [facility] Comment on above: Performed By: #### C BC, BMPX ####[facility]Varaani WorksIxzpsxutmcis[address] [place] [address] Calcium 7.9 mg/dL Low 8.4-10.2 [facility] Comment on above: Performed By: #### C BC, BMPX ####[facility] [address] [place] [address] Chloride 103 mmol/L Normal 98-107 [facility] Comment on above: Performed By: #### C BC, BMPX ####[facility]ara[facility] WorksEzowygtnispm[address] [place] [address] CO2 19 mmol/L Low 20-31 [facility] Comment on above: Performed By: #### C BC, BMPX ####[facility]ara[facility] WorksVuxnhvdixxef[address] [place] [address] Creatinine 0.67 mg/dL Normal 0.50-0.90 [facility] Comment on above: Performed By: #### C BC, BMPX ####[facility] [address] [place] [address] eGFR (non-black) Pediatric GFR requir es additional information. Refer to NKDEP website for Normal >60 [facility] Comment on above: Result Comment: calc ulator. Performed By: #### C BC, BMPX ####[facility] [address] [place] [address] Glucose mass conc 128 mg/dL High 60-100 [facility] Comment on above: Performed By: #### C BC, BMPX ####[facility] [address] [place] [address] Potassium molar conc 4.3 mmol/L Normal 3.6-4.9 [facility] Comment on above: Performed By: #### C BC, BMPX ####[facility] [address] [place] [address] Sodium 137 mmol/L Normal 135-144 [facility] Comment on above: Performed By: #### C BC, BMPX ####[facility]jaycee BenavidesUuk[address]gelv[address] [place] [address] Urea nitrogen 9 mg/dL Normal 5-18 [facility] Comment on above: Performed By: #### C BC, BMPX ####[facility] [address] [place] [address] BUN/CRE Ratio NOT REPORTED Normal 9-20 [facility] Comment on above: Performed By: #### C BC, BMPX ####[address] [address] eGFR (non-black) NOT REPORTED Normal >60 [facility] Comment on above: Performed By: #### C BC, BMPX ####[address] [address] Staging: NOT REPORTED Normal [facility] Comment on above: Performed By: #### C BC, BMPX ####[address] [address] CBCon 12-24-2017 Erythrocyte distribution width Auto Ratio (RBC) 12.4 % Normal 11.8-14.4 [facility] Comment on above: Performed By: #### C BC, BMPX ####[address] [address] Erythrocytes (RBC) 0.0 per 100 WBC Normal 0.0 M [facility] Comment on above: Result Comment: [address] [address] Performed By: #### C BC, BMPX ####[address] [address] Erythrocytes (RBC) 3.87 10*6/uL Low 3.95-5.11 [facility] Comment on above: Performed By: #### C BC, BMPX ####[address] [place] [address] Hematocrit (HCT) 34.3 % Low 36.3-47.1 [facility] Comment on above: Performed By: #### C BC, BMPX ####[address] [address] Hemoglobin mass conc (Bld) 11.6 g/dL Low 11.9-15.1 [facility] Comment on above: Performed By: #### C BC, BMPX ####[address] [address] MCH 30.0 pg Normal 25.0-35.0 [facility] Comment on above: Performed By: #### C BC, BMPX ####[address] [address] MCHC mass conc (RBC) 33.8 g/dL Normal 28.4-34.8 [facility] Comment on above: Performed By: #### C BC, BMPX ####[address] [address] MCV 88.6 fL Normal 78.0-102.0 [facility] Comment on above: Performed By: #### C BC, BMPX ####[address] [place] [address] Platelet mean volume (PMV) 10.5 fL Normal 8.1-13.5 [facility] Comment on above: Performed By: #### C BC, BMPX ####[facility] [place] [address] Platelets 217 10*3/uL Normal 138-453 [facility] Comment on above: Performed By: #### C BC, BMPX ####[facility] [address] [place] [address] WBC (Leukocytes) 12.6 10*3/uL Normal 4.5-13.5 [facility] Comment on above: Performed By: #### C BC, BMPX ####[address] [place] [address] Creatinine,Fluidon 8 Creatinine 0.7 mg/dL Normal [facility] Comment on above: Result Comment: Ther e are no normals for body fluid samples.[address] [address] Performed By: #### F LCRE ####[address] [place] [address] Type of Specimen MAYKEL FLUID Normal [facility] Comment on above: Performed By: #### F LCRE ####[address] [address] Cult,Urineon 12-24-2017 Cult,Urine Specimen Description .CATHETERIZED URINE Special Requests FIRST INSERTION Culture NO GROWTH Report Status FINAL 12/24/2017 Normal [facility] Comment on above: Performed By: #### U RC ####[address] [address] Plan of Careon 12-24-2017 HIM IP Note OR Heat Treat Technician Normal [facility] HIM IP Note OR Heat Treat Technician Normal [facility] Progress Noteon 12-24-2017 HIM IP Note OR Heat Treat Technician Normal [facility] HIM IP Note OR Heat Treat Technician Normal [facility] Basic Metab w/rfx MGon 12-23 (cont.) Normal [facility] Comment on above: Result Comment: Aver age GFR for <20 years old not available.Chronic Kidney Disease: <60 mL/min/1.73sq mKidney failure: <15 mL/min/1.73sq meGFR calculated using average adult body mass. Additional eGFR calculator available at:http://www.[email or web address]/multiple_crcl_2012.htm[facility] [place] [address] [place] [address] Performed By: #### C BC, BMPX ####[address] [place] [address] Anion gap 14 mmol/L Normal 9-17 [facility] Comment on above: Performed By: #### C BC, BMPX ####[address] [address] Calcium 7.9 mg/dL Low 8.4-10.2 [facility] Comment on above: Performed By: #### C BC, BMPX ####[address] [address] Chloride 102 mmol/L Normal 98-107 [facility] Comment on above: Performed By: #### C BC, BMPX ####[facility] [address] [place] [address] CO2 21 mmol/L Normal 20-31 [facility] Comment on above: Performed By: #### C BC, BMPX ####[facility] [address] [place] [address] Creatinine 0.87 mg/dL Normal 0.50-0.90 [facility] Comment on above: Performed By: #### C BC, BMPX ####[facility] [address] [place] [address] eGFR (non-black) Pediatric GFR requir es additional information. Refer to NKDEP website for Normal >60 [facility] Comment on above: Result Comment: calc ulator. Performed By: #### C BC, BMPX ####[facility] [address] [place] [address] Glucose mass conc 154 mg/dL High 60-100 [facility] Comment on above: Performed By: #### C BC, BMPX ####[facility] [address] [place] [address] Potassium molar conc 4.0 mmol/L Normal 3.6-4.9 [facility] Comment on above: Performed By: #### C BC, BMPX ####[facility] [address] [place] [address] Sodium 137 mmol/L Normal 135-144 [facility] Comment on above: Performed By: #### C BC, BMPX ####[address] [address] Urea nitrogen 10 mg/dL Normal 5-18 [facility] Comment on above: Performed By: #### C BC, BMPX ####[address] [address] BUN/CRE Ratio NOT REPORTED Normal 9-20 [facility] Comment on above: Performed By: #### C BC, BMPX ####[address] [address] eGFR (non-black) NOT REPORTED Normal >60 [facility] Comment on above: Performed By: #### C BC, BMPX ####[facility] [address] [place] [address] Staging: NOT REPORTED Normal [facility] Comment on above: Performed By: #### C BC, BMPX ####[address] [address] CBCon 12-23-2017 Erythrocyte distribution width Auto Ratio (RBC) 12.1 % Normal 11.8-14.4 [facility] Comment on above: Performed By: #### C BC, BMPX ####[facility] WorksVulsjoyuriqu[address] [place] [address] Erythrocytes (RBC) 4.43 10*6/uL Normal 3.95-5.11 [facility] Comment on above: Performed By: #### C BC, BMPX ####[address] [address] Erythrocytes (RBC) 0.0 per 100 WBC Normal 0.0 [facility] Comment on above: Result Comment: [address] [place] [address] Performed By: #### C BC, BMPX ####[address] [address] Hematocrit (HCT) 39.5 % Normal 36.3-47.1 [facility] Comment on above: Performed By: #### C BC, BMPX ####[address] [address] Hemoglobin mass conc (Bld) 13.4 g/dL Normal 11.9-15.1 [facility] Comment on above: Performed By: #### C BC, BMPX ####[address] [address] MCH 30.2 pg Normal 25.0-35.0 [facility] Comment on above: Performed By: #### C BC, BMPX ####[address] [address] MCHC mass conc (RBC) 33.9 g/dL Normal 28.4-34.8 [facility] Comment on above: Performed By: #### C BC, BMPX ####[address] [address] MCV 89.2 fL Normal 78.0-102.0 [facility] Comment on above: Performed By: #### C BC, BMPX ####[address] [address] Platelet mean volume (PMV) 10.2 fL Normal 8.1-13.5 [facility] Comment on above: Performed By: #### C BC, BMPX ####[address] [place] [address] Platelets 232 10*3/uL Normal 138-453 [facility] Comment on above: Performed By: #### C BC, BMPX ####Taylor [address] [address] WBC (Leukocytes) 11.8 10*3/uL Normal 4.5-13.5 [facility] Comment on above: Performed By: #### C BC, BMPX ####[address] [place] [address] Interval History and Physion 12-23-2017 HIM IP Note OR Heat Treat Technician Normal [facility] Op Noteon 12-23-2017 HIM IP Note OR Heat Treat Technician Normal [facility] Cult,Urineon 12-20-2017 Cult,Urine Specimen Description .CLEAN CATCH URINE Special Requests NOT REPORTED Culture NO GROWTH Report Status FINAL 12/20/2017 Normal [facility] Comment on above: Performed By: #### U RC ####[address] [address] BUN + Creatinineon 8 (cont.) Normal [facility] Comment on above: Result Comment: Aver age GFR for <20 years old not available.Chronic Kidney Disease: <60 mL/min/1.73sq mKidney failure: <15 mL/min/1.73sq meGFR calculated using average adult body mass. Additional eGFR calculator available at:http://www.Teads.com/multiple_crcl_2012.htm[address] [address] Performed By: #### H H, BUNCRT, LYTE ####[address] [address] Creatinine 0.72 mg/dL Normal 0.50-0.90 [facility] Comment on above: Performed By: #### H H, BUNCRT, LYTE ####[facility] [address] [place] [address] eGFR (non-black) Pediatric GFR requir es additional information. Refer to NKDEP website for Normal >60 [facility] Comment on above: Result Comment: calc ulator. Performed By: #### H H, BUNCRT, LYTE ####[facility] [address] [place] [address] Urea nitrogen 12 mg/dL Normal 5-18 [facility] Comment on above: Performed By: #### H H, BUNCRT, LYTE ####[facility] [address] [place] [address] eGFR (non-black) NOT REPORTED Normal >60 [facility] Comment on above: Performed By: #### H H, BUNCRT, LYTE ####[facility] WorksOtqnw[address]taabz[address] [place] [address] Staging: NOT REPORTED Normal [facility] Comment on above: Performed By: #### H H, BUNCRT, LYTE ####[facility] [address] [place] [address] Electrolyteson 12-19-2017 Anion gap 12 mmol/L Normal 9-17 [facility] Comment on above: Result Comment: [facility] [employer] [facility] [place] [address] Performed By: #### H H, BUNCRT, LYTE ####[facility] [address] [place] [address] Chloride 104 mmol/L Normal 98-107 [facility] Comment on above: Performed By: #### H H, BUNCRT, LYTE ####[facility] WorksRcnftqpfxfac[address] [place] [address] CO2 23 mmol/L Normal 20-31 [facility] Comment on above: Performed By: #### DARRYL Cary LYTE ####[address] [place] [address] Potassium molar conc 3.7 mmol/L Normal 3.6-4.9 [facility] Comment on above: Performed By: #### DARRYL Cary LYTE ####[facility] [address] [place] [address] Sodium 139 mmol/L Normal 135-144 [facility] Comment on above: Performed By: #### DARRYL Cary LYTE ####[facility] [address] [place] [address] Hgb/Hcton 12-19-2017 Hematocrit (HCT) 40.4 % Normal 36.3-47.1 [facility] Comment on above: Result Comment: [facility] [employer] [address] [place] [address] Performed By: #### DARRYL Cary LYTE ####[address] [place] [address] Hemoglobin mass conc (Bld) 13.3 g/dL Normal 11.9-15.1 [facility] Comment on above: Performed By: #### DARRYL Cary LYTE ####[facility] [address] [place] [address] History and Physicalon 12-19 HIM IP Note OR Heat Treat Technician Normal [facility] Type + Screenon 12-19-2017 Type + Screen Sample Expiration Arm Band Number [id number] ABO/Rh(D) O POSITIVE Antibody Screen NEGATIVE [address] [address] Normal [facility] Comment on above: Performed By: #### T YS ####[address] [place] [address] Progress Noteon 12-08-2017 HIM IP Note OR Heat Treat Technician Normal [facility] Cult,Urine,Cathon 11-28-2017 Cult,Urine,Cath Specimen Description .URINE,STRAIGHT CATHETER VCUG Special Requests NOT REPORTED Culture NO GROWTH Report Status FINAL 11/28/2017 Normal [facility] Comment on above: Performed By: #### C THUC ####[facility] [address] [place] [address] FL VOIDING URETHROCYSTOGRAMo n 11-27-2017 FL VOIDING URETHROCYSTOGRAM EXAMINATION:VOIDING CYSTO URETHROGRAM11/27/2017 1:52 pmCOMPARISON:None.HISTORY:OR DERING SYSTEM PROVIDED HISTORY: Hydronephrosis, unspecified hydronephrosistypeTECHNOLOGI ST PROVIDED HISTORY:Please include oblique views. Please report the volume of contrast instilledin the bladder. If reflux is present, indicate whether it occurs on fillingor voiding.FLUOROSCOPY DOSE AND TYPE OR TIME AND EXPOSURES:1.5 minutes fluoroscopy time.D AP 4.964 Gy [id number]:A total of 370 mL of Cysto-Conray 2 was instilled into the urinary bladder valentina retrograde fashion through a Shell catheter. Urinary bladder fillsnormally. No filling defect identified on the early filling views. There isno evidence for vesicoureteral reflux on filling or voiding. Voidingdemonstrates a normal urethra.IMPRESSION: No evidence for vesicoureteral reflux on filling or emptying.Interpreted by:NELLY Floresigned by:Remy Lei MD11/27/17inal result Normal [facility] History and Physicalon 11-27 HIM IP Note OR Heat Treat Technician Normal [facility] NM KIDNEY W FLOW AND FUNCTIO N W PHARMACOLOGICAL INTERVENTIONon 11-27-2017 NM KIDNEY W FLOW AND FUNCTION W PHARMACOLOGICAL INTERVENTION EXAMINATION:NUCLEAR MEDICINE RENAL SCAN11/27/2017TECHNIQUE:Follow ing hydration, 3 mCi of Tc-99m-MAG3 was administered intravenously.40 mg of Lasix was administered at approximately 20 mins. Dynamic flow andstandard sequential images of the kidneys were acquired in posteriorprojection. Captopril was utilized in the examination.Renograms of kidneys and cortices were generated and analyzed.COMPARISON:09 July 2010HISTORY:ORDERING SYSTEM PROVIDED HISTORY: Hydronephrosis, unspecified hydronephrosistypeTECHNOLOGI ST PROVIDED HISTORY:Please place Shell catheterOrdering Physician Provided Reason for Exam: Rt. hydronephrosis.FINDINGS:LEFT :Prompt perfusion is present. Prompt uptake and normal concentration intonormal caliber collecting systems. Half emptying time for the left kidney is4.0 mins. No significant cortical retention. Normal response to Lasix isnoted.RIGHT:Prompt perfusion is present. Prompt uptake is noted. However, urinarycollecting system appears dilated. There is delayed excretion. Halfemptying time for the right kidney is 49.5 mins. There is diminished anddelayed response to Lasix.Split renal uptake is 46.5% on the left and 53.5% on the right.IMPRESSION: Delayed excretion right kidney with abnormal response to Lasix. Excretioncurves are type 3 curves, obstructive.Interpreted by:NELLY Hiltonigned by:Kirsten Olivo MD//18Final result Normal [facility] Coding Summary.on 11-03-2017 Coding Summary. CODING DATE: 017 FINAL [facility] STATUS: Home (Routine DC) PAYOR: [facility] ADMIT DX: REASON FOR VISIT DX: R30.0 Dysuria FINAL DX: PRINCIPAL: R30.0 Dysuria SECONDARY: PROCEDURES DOCTOR NAME DATE NOTE: The code number assigned matches the documented diagnosis and / or procedure in the patient's chart. However, the narrative phrase printed from the coding software may appear abbreviated, or result in slightly different terminology. Coded By: Ana Maria Pena Date Saved: 11/03/2017 07:59 pm Normal [facility] C Urineon 11-02-2017 Urine culture, bacteria MicrobiologyPROCEDURE: Urine Culture [R1] U CleanCatch BODY SITE:COLLECTED DATE/TIME: 10/31/2017 09:00 EST RECEIVED DATE/TIME: 10/31/2017 15:30 ESTSTART DATE/TIME: 10/31/2017 15:30 EST FREE TEXT SOURCE:Shanique Munson Eva FFINAL REPORTSFinal Report [] Verified Date/Time: 11/02/2017 06:35 EST2,000 cfu/ml Mixed skin contaminantsPerforming LocationsR1: This test was performed at: [facility], [address] [place] [address], [address] , [facility] Comment on above: Performed By: #### 2 [id number] ####[facility] [address] [place] [address] Vital Signs Date Time Vital Sign Value Performing Clinician Facility 08-22-2021 18:55-0400 Body height 152.4 cm Vanesa Diallo Other [facility] 08-22-2021 18:55-0400 Body mass index (BMI) [Ratio] 25.39 kg/m2 Vanesa Diallo Other [facility] 08-22-2021 18:55-0400 Body temperature 100 [degF] Vanesa Diallo Other [facility] Other 08-22-2021 18:55-0400 Body weight 58.97 kg Vanesa Diallo Other [facility] Other 08-22-2021 18:55-0400 Respiratory rate 16 /min Vanesa Diallo Other [facility] Other 08-22-2021 18:55-0400 SaO2% (BldA) [Mass fraction] 98 % Vanesa Diallo Other [facility] Other Encounters Encounter Date Encounter Type Care Provider Facility Start: 07-30-2024 End: 07-30-2024 ambulatory ANDIE [facility] Start: 07-29-2024 End: 07-29-2024 ambulatory KIRSTEN GRANT Not Available Start: 07-23-2024 End: 07-23-2024 ambulatory [facility] Start: 07-02-2024 End: 07-02-2024 ambulatory [facility] Start: 06-16-2024 End: 06-16-2024 ambulatory TANIA COLVINHMAN Not Available Start: 06-08-2024 End: 06-08-2024 ambulatory TANIA GAMA Not Available Start: 06-03-2024 End: 06-03-2024 ambulatory TANIA GAMA [facility] Start: 05-18-2024 End: 05-18-2024 ambulatory FELICIA L FLORO Not Available Start: 05-04-2024 End: 05-04-2024 ambulatory TANIA COLVINHMAN Not Available Start: 04-13-2024 End: 04-13-2024 ambulatory FELICIA L FLORO Not Available Start: 04-06-2024 End: 04-06-2024 ambulatory TANIA COLVINHMAN Not Available Start: 02-18-2024 End: 02-18-2024 ambulatory FELICIA L FLORO Not Available Start: 11-06-2023 End: 11-06-2023 ambulatory FELICIA L FLORO Not Available Start: 10-21-2023 End: 10-21-2023 ambulatory ESTEFANI PALACIO Not Available Start: 10-10-2023 End: 10-10-2023 ambulatory FELICIA FLORO Not Available Start: 09-29-2023 End: 09-29-2023 ambulatory Ramírez Bishop Facility:[facility] Start: 09-29-2023 End: 09-29-2023 ambulatory MD Tania Gama Work Phone: [facility] Work Phone: Start: 09-29-2023 End: 09-29-2023 Departed Referred MD Tania Gama Work Phone: [facility] [place] Work Phone: Start: 09-23-2023 End: 09-23-2023 ambulatory Felicia L Floro Facility:[facility] Start: 09-23-2023 End: 09-23-2023 Departed Referred MD Tania Gama Work Phone: [facility] [place] Work Phone: Start: 02-27-2023 End: 02-28-[address] TANIA GAMA Facility:[facility] Start: 04-28-2022 End: 04-29-2022 ambulatory LAKISHA HAWKINS Facility:[facility] Start: 08-22-2021 (URG) Urgent Care Visit Vanesa Diallo [facility] Start: 03-05-2018 End: 03-08-2018 Ambulatory [facility] Start: 12-23-2017 End: 12-25-2017 Evaluation and management of inpatient ISMAEL MCKEON [facility] Start: 12-19-2017 End: 12-20-2017 Ambulatory [facility] Start: 11-27-2017 End: 11-28-2017 [facility] Start: 11-27-2017 End: 11-27-2017 Amb[facility] Start: 11-27-2017 End: 11-27-2017 [facility] Start: 10-31-2017 End: 11-01-2017 Ambulatory Shanique Atwood Alfred Facility:[facility] Procedures Date Procedure Procedure Detail Performing Clinician Start: 03-05-2018 Kidney img morpholog y vascular flow 1 w/rx ROSELYN CASTRO Start: 03-05-2018 Us retroperitoneal r eal time w/image complete ROSELYN CASTRO Start: 12-25-2017 DISCHARGE PATIENT ROSELYN CASTRO Start: 12-25-2017 INITIATE OXYGEN THER APY PROTOCOL ROSELYN CASTRO Start: 12-24-2017 CREATININE, BODY FLUID ROSELYN CASTRO Start: 12-24-2017 INITIATE OXYGEN THER APY PROTOCOL ROSELYN CASTRO Start: 12-24-2017 CATHETER REMOVAL ROSELYN CASTRO Start: 12-24-2017 DIET PEDS GENERAL ROSELYN CASTRO Start: 12-24-2017 BASIC METABOLIC PANE L W/ REFLEX TO MG FOR LOW K ROSELYN HELLERNAT Start: 12-24-2017 CBC ROSELYN HELLERIMTIAZ NG Start: 12-24-2017 Radiologic exam abdomen 1 view ROSELYN CASTRO Start: 12-23-2017 AMBULATE PATIENT ROSELYN CASTRO Start: 12-23-2017 DRAIN CARE ROSELYN NG Start: 12-23-2017 FULL CODE ROSELYN NG Start: 12-23-2017 INITIATE OXYGEN THER APY PROTOCOL ROSELYN CASTRO Start: 12-23-2017 NURSING COMMUNICATION Virginie CASTRO Start: 12-23-2017 PLACE INTERMITTENT P NEUMATIC COMPRESSION DEVICE ROSELYN CASTRO Start: 12-23-2017 VITAL SIGNS ROSELYN NG Start: 12-23-2017 BASIC METABOLIC PANE L W/ REFLEX TO MG FOR LOW K ROSELYN GLORIA Start: 12-23-2017 CBC ROSELYN NG Start: 12-23-2017 PATIENT STATUS (FROM ED OR OR/PROCEDURAL) ROSELYN CASTRO Start: 12-23-2017 TRANSFER PATIENT ROSELYN CASTRO Start: 12-23-2017 URINE CULTURE ROSELYN JERONIMO Start: 12-23-2017 X-ray urinary tract exam with contrast material ROSELYN CASTRO Start: 12-23-2017 POCT URINE JESUS ALBERTO CASTRO Start: 12-19-2017 BUN AND CREATININE ALVA CASTRO Start: 12-19-2017 ELECTROLYTE PANEL ROSELYN CASTRO Start: 12-19-2017 HEMOGLOBIN AND HEMAT OCRIT, BLOOD ROSELYN CASTRO Start: 12-19-2017 TYPE AND SCREEN ROSELYN JEAN Start: 12-19-2017 URINE CULTURE ROSELYN JERONIMO Start: 11-27-2017 Urethrocystography v oiding rs&i ROSELYN PRATERCKI Start: 11-27-2017 Kidney img morpholog y vascular flow 1 w/rx ROSELYN GLORIA Start: 11-27-2017 CULTURE, URINE CATHETER ROSELYN CASTRO Start: 11-27-2017 Continuous pulse oximetry ROSELYNTEVIN CASTRO Start: 11-27-2017 ADVANCE DIET TOLE RATED (NURSING COMMUNICATION) ROSELYN CASTRO Start: 11-27-2017 CARDIAC MONITORING ALVAEva CASTRO Start: 11-27-2017 DIET NPO, NOW ROSELYNTEVIN JERONIMO Start: 11-27-2017 MEASURE WEIGHT ROSELYN JOHNS Start: 11-27-2017 MISCELLANEOUS NURSIN G CARE ORDER (SPECIFY) ROSELYN CASTRO Start: 11-27-2017 NOTIFY PHYSICIAN (SPECIFY) ROSELYN CASTRO Start: 11-27-2017 PEDIATRIC LOW FLOW N KARRI CANNULA ROSELYN CASTRO Start: 11-27-2017 VITAL SIGNS ROSELYN AzevedoNIALEJANDRO Start: 11-27-2017 SALINE LOCK IV ROSELYN ARRON BELTRANI Payers Date Payer Category Payer Self-pay [id number] 2023 Unknown [id number] 2017 Unknown 2016 Unknown [id number] 2001 Unknown [id number] .16.84 0.1.297697.3.579.2.593 2001 Unknown [id number] .16.84 0.1.015862.3.579.2.593 2001 Unknown [id number] .840.1.103049.3.579.2.1286 2001 Unknown [id number] 2.840.1.268655.3.579.2.1286 2001 Unknown [id number] .16.84 0.1.005252.3.579.2.1258 2001 Unknown [id number] 2.16.84 0.1.331391.3.579.2.1258 2001 Unknown [id number] 2.16.84 0.1.425935.3.579.2.1258 2001 Unknown [id number] 2.16.84 0.1.625982.3.579.2.1258 2001 Unknown [id number] 2.16.84 0.1.684106.3.579.2.1258 2001 Unknown [id number] 2.16.84 0.1.879943.3.579.2.1258 2001 Unknown [id number] 2.16.84 0.1.848197.3.579.2.1258 2001 Unknown [id number] 2.16.84 0.1.813817.3.579.2.1258 2001 Unknown [id number] 2.16.840 .1.185321.3.579.2.1258 2001 Unknown [id number] 2.16.840 .1.480633.3.579.2.1258 2001 Unknown [id number] 2.16.840 .1.540539.3.579.2.9 1959 Private Health Insurance [id number] 1959 Unknown [id number] 2.1 6.840.1.473893.19 1959 Unknown [id number] 1959 Unknown [id number] Medicaid [employer] [id number] Unknown [id number] 2.16.8 40.1.006660.3.579.2.531 Unknown [id number] 2.16.8 40.1.465800.3.579.2.531 Social History Date Type Detail Facility Unknown if ever smoked [facility] Other Sex Assigned At Sex Assigned At Bir th [facility] Other Start: 2001 Sex Assigned At Female F [facility] Progress note 07-30-2024 Note Date & Type Note Facility 07-30-2024 Note Cardiology Clinic No te Chief Complaint: New patient for palpitations, htn HPI: Liana Kelsey is a 24 y.o. female who has a past medical history of Hypertension. that is referred to Cardiology clinic for evaluation of hypertension and palpitations. She presents today for follow up having renal artery duplex done at [facility]. Pt says that she is not taking Metoprolol due to switching Pharmacies. She reports occasional non cardiac chest pain which is sharp in nature, occurs with rest, and does not worsen with exertion. Renal artery Doppler was performed and although renal were within normal limits, patient was noted to have increased abdominal aortic velocities. Holter monitor was performed and did not demonstrate any sustained arrhythmias. ROS 10 point ROS is performed and is negative unless otherwise specified in HPI Past Medical History She has a past medical history of Hypertension. Surgical History She has a past surgical history that includes section, classic; Appendectomy; and Kidney surgery. Social History She reports that she has never smoked. She has never used smokeless tobacco. She reports current alcohol use. No history on file for drug use. Family History Family History Problem Relation Name Age of Onset Heart attack Mother Medications Current Outpatient Medications on File Prior to Visit Medication Sig Dispense Refill FLUoxetine (PROzac) 10 mg capsule Take 10 mg by mouth in the morning. Jencycla 0.35 mg tablet Take 1 tablet by mouth in the morning. NIFEdipine XL (Procardia XL) 30 mg 24 hr tablet Take 30 mg by mouth in the morning. metoprolol succinate XL (Toprol-XL) 50 mg 24 hr tablet Take 1 tablet (50 mg) by mouth once daily as directed. Do not crush or chew. (Patient not taking: Reported on 07/30/2024) 90 tablet 3 No current facility-administered medications on file prior to visit. Allergies Beeswax, Bee venom protein (honey bee), and Labetalol Physical Exam VITAL SIGNS: BP 123/87 (BP Location: Right arm, Patient Position: Sitting) Pulse 89 Ht 1.524 m (5') Wt 77.6 kg (171 lb) SpO2 99% BMI 33.40 kg/m??? Constitutional: Well developed, Well nourished, No acute distress, Non-toxic appearance. HENT: Normocephalic, Atraumatic, Bilateral external ears have normal appearance, Nose appears normal, nares are patent. Eyes: PERRLA, EOMI, Conjunctiva normal, No discharge. Neck: Normal range of motion, No tenderness, Supple, No stridor. No cervical lymphadenopathy noted. Cardiovascular: Normal heart rate, Normal rhythm, No murmurs, No rubs, No gallops. Thorax & Lungs: Normal breath sounds, No respiratory distress, No wheezing, No chest tenderness to palpation. Abdomen: Bowel sounds normal, Soft, Nontender, No masses, No pulsatile masses. Skin: Warm, Dry, No erythema, No rash. Back: No tenderness, No CVA tenderness. Extremities: Intact distal pulses, No edema, No tenderness, No cyanosis, No clubbing. Musculoskeletal: Grossly normal strength in extremities Neurologic: Alert & oriented x 3, no gross focal neurological deficits Psychiatric: Affect normal, Judgment normal, Mood normal. EKG results: No results found for this or any previous visit (from the past 4464 hour(s)). Echo results: No echocardiogram results found for the past 12 months Radiology: No image results found. Assessment/Plan: Liana Kelsey is a 24 y.o. female with Primary hypertension Abnormal EKG Abnormal ultrasound Continue Toprol-XL for hypertension for palpitations Given increased abdominal aortic velocities, will obtain MRA of chest/abdomen to rule out aortic pathology. No sustained arrythmias on 48 hr monitor. 30 day monitor pending. Optimize medical management Aggressive risk factor modification Plan of care discussed with patient. All questions were answered. Patient voices understanding and is agreeable with current plan. Patient was educated on red flag symptoms. Strict return precautions were provided. Patient verbalizes understanding Follow-up in cardiology clinic in 3 months, or sooner as needed Andie Alba MD Interventional Cardiology [facility] Progress note 07-02-2024 Note Date & Type Note Facility 07-02-2024 Note Cardiology Clinic No te Chief Complaint: New patient for palpitations, htn HPI: Liana Kelsey is a 24 y.o. female who has a past medical history of Hypertension. that is referred to Cardiology clinic for evaluation of hypertension and palpitations. Patient reports symptoms of hypertension during her . She actually was diagnosed with eclampsia and was hospitalized. She has had problems with Bp since that time. She was on labetolol but did not tolerate the medication. She reports occasional palpitations buts not additional cardiac complaints or concerns. No LE edema, orthonpea, or PND. No near syncope or syncope. Patient denies any previous history of CVA, PVD, DM, HTN, Depressed LVEF, and CAD. ROS 10 point ROS is performed and is negative unless otherwise specified in HPI Past Medical History She has a past medical history of Hypertension. Surgical History She has a past surgical history that includes section, classic; Appendectomy; and Kidney surgery. Social History She reports that she has never smoked. She has never used smokeless tobacco. She reports current alcohol use. No history on file for drug use. Family History Family History Problem Relation Name Age of Onset Heart attack Mother Medications Current Outpatient Medications on File Prior to Visit Medication Sig Dispense Refill FLUoxetine (PROzac) 10 mg capsule Take 10 mg by mouth in the morning. Jencycla 0.35 mg tablet Take 1 tablet by mouth in the morning. NIFEdipine XL (Procardia XL) 30 mg 24 hr tablet Take 30 mg by mouth in the morning. No current facility-administered medications on file prior to visit. Allergies Beeswax, Bee venom protein (honey bee), and Labetalol Physical Exam VITAL SIGNS: BP 134/79 (BP Location: Right arm, Patient Position: Standing) Pulse 100 Ht 1.524 m (5') Wt 77.6 kg (171 lb) SpO2 99% BMI 33.40 kg/m??? Constitutional: Well developed, Well nourished, No acute distress, Non-toxic appearance. HENT: Normocephalic, Atraumatic, Bilateral external ears have normal appearance, Nose appears normal, nares are patent. Eyes: PERRLA, EOMI, Conjunctiva normal, No discharge. Neck: Normal range of motion, No tenderness, Supple, No stridor. No cervical lymphadenopathy noted. Cardiovascular: Normal heart rate, Normal rhythm, No murmurs, No rubs, No gallops. Thorax & Lungs: Normal breath sounds, No respiratory distress, No wheezing, No chest tenderness to palpation. Abdomen: Bowel sounds normal, Soft, Nontender, No masses, No pulsatile masses. Skin: Warm, Dry, No erythema, No rash. Back: No tenderness, No CVA tenderness. Extremities: Intact distal pulses, No edema, No tenderness, No cyanosis, No clubbing. Musculoskeletal: Grossly normal strength in extremities Neurologic: Alert & oriented x 3, no gross focal neurological deficits Psychiatric: Affect normal, Judgment normal, Mood normal. EKG results: No results found for this or any previous visit (from the past 4464 hour(s)). Echo results: No echocardiogram results found for the past 12 months Radiology: No image results found. Assessment/Plan: Liana Kelsey is a 24 y.o. female with Palpitations Benign hypertensive heart disease without congestive heart failure Hypertension secondary to other renal disorders Diagnoses and all orders for this visit: Benign hypertensive heart disease without congestive heart failure - metoprolol succinate XL (Toprol-XL) 50 mg 24 hr tablet; Take 1 tablet (50 mg) by mouth once daily as directed. Do not crush or chew. - Vascular US renal artery duplex complete; Future Hypertension secondary to other renal disorders - Vascular US renal artery duplex complete; Future Will obtain renal artery dopplers Start Toprol 50 mg daily for HTN and palpitations No sustained arrythmias on 48 hr monitor. Will obtain 30 day event monitor. Optimize medical management Aggressive risk factor modification Plan of care discussed with patient. All questions were answered. Patient voices understanding and is agreeable with current plan. Patient was educated on red flag symptoms. Strict return precautions were provided. Patient verbalizes understanding Follow-up in cardiology clinic in 3 months, or sooner as needed Thank you for allowing us to participate in the care of your patient. Please do not hesitate to contact cardiology with any questions or concerns. Andie Alba MD Interventional Cardiology [facility] Evaluation note 08-22-2021 Note Date & Type Note Facility 08-22-2021 Evaluation note Encounter Date Diagnosis Assessment Notes Jul, Contact with and (suspected) exposure to other viral communicable diseases (ICD-10 - Z20.828) Jul, Viral upper respiratory illness (ICD-10 - J06.9) Viral upper respiratory infection: adult home care material was printed. Drink plenty fluids, get plenty of rest. Tylenol Motrin for aches pains or fevers. Gargle with salt water or use Chloraseptic for your sore throat. Follow-up with your family physician if no improvement in 2 to 3 days. Jul, Sore throat (ICD-10 - J02.9) Jul, Other Additional time spent conducting pre-visit phone call, screening for symptoms, instructions on social distancing, application and removal of PPE, and cleaning of examination room, equipment and supplies was preformed. Patient education given for testing methodology and results. Patient care instructions given in writting by [facility] At Home document. [employer] Other Evaluation note Note Date & Type Note Facility Evaluation note No assessment information availa [facility] Work Phone: History general Narrative - Reported Note Date & Type Note Facility History general Narrative - Reported Type Medical History hydronephrosis Medical History GERD Medical History ENLARGED KIDNEY Medical History kidney repair Surgical History tube in kidney Surgical History appendix removed Surgical History tubes in ears, twice Surgical History adnoids removed [facility] [employer] Other Summary Purpose Family History No Family History Records FoundNo Family History Records FoundNo Family History Records FoundNo Family History Records FoundNo Family History Records FoundNo Family History Records FoundNo Family History Records FoundNo Family History Records FoundNo Family History Records FoundNo Family History Records Found Advance Directives No Advanced Directives Records Found Advance Directive Response Recorded Date/ Time Advance Directives No September 29, 2023 1:22pm Chief Complaint and Reason for Visit Chief Complaint High blood pressure Additional Source Comments INFORMATION SOURCE (unrecogn ized section and content) DATE CREATED AUTHOR 05/19/2018 [facility] DATE CREATED AUTHOR AUTHOR'S ORGANIZ ATION 05/20/2018 [facility] [place] DATE CREATED AUTHOR AUTHOR'S ORGANIZ ATION 06/19/2019 [facility] DATE CREATED AUTHOR AUTHOR'S ORGANIZ ATION 03/07/2021 [employer] DATE CREATED AUTHOR AUTHOR'S ORGANIZ ATION 02/09/2022 [facility] DATE CREATED AUTHOR AUTHOR'S ORGANIZ ATION 03/03/2023 [facility] DATE CREATED AUTHOR AUTHOR'S ORGANIZ ATION 10/07/2023 [facility] DATE CREATED AUTHOR AUTHOR'S ORGANIZ ATION [facility]/20[facility] DATE CREATED AUTHOR AUTHOR'S ORGANIZ ATION 07/31/2024 [facility] EPIC DATE CREATED AUTHOR AUTHOR'S ORGANMIGUEL ATION 08/29/2024 [facility] REASON FOR VISIT (unrecogniz ed section and content) #32 RED JEEP, SORE THROAT, S INUS CONGESTION Care Teams (unrecognized sec tion and content) Team Status: Inactive Member Role Status Dates Felicia Mancini APRN Attending Provider Active Tania Gama MD Primary Care Provider Active Team Status: Inactive Member Role Status Dates Ramírez Alas Attending Provider Active Goals (unrecognized section and content) Goals may be documented in a n alternate section FOR RECORDS PERTAINING TO PATIENTS WHO ARE OR HAVE BEEN ENROLLED IN A CHEMICAL DEPENDENCY/SUBSTANCEABUSE PROGRAM, SOME INFORMATION MAY BE OMITTED. This clinical summary was aggregated from multiple sources. Caution should be exercised in using it in the provision of clinical care. This summary normalizes information from multiple sources, and as a consequence, information in this document may materially change the coding, format and clinical context of patient data. In addition, data may be omitted in some cases. CLINICAL DECISIONS SHOULD BE BASED ON THE PRIMARY CLINICAL RECORDS. [employer] provides no warranty or guarantee of the accuracy or completeness of information in this document.
--- NOTE | 2024-10-11 06:51 | XR_ITS ---
The [address] [address] Patient Name: ASHLIE KELSEY MRN: [id number] date: 2000 Sex: F Assigned Patient Location: ER Current Patient Location: ER Accession/Order Number: [id number] Exam Date: 10/11/2024 07:07 Report Date: 10/11/2024 07:36 At the request of: LAKISHA HAWKINS Procedure: XR shoulder RT min 2V PROCEDURE: XR shoulder RT min 2V COMPARISON: None. HISTORY: pain FINDINGS: BONES:No fracture, acute abnormality, or significant arthropathy. SOFT TISSUES:Negative. No visible soft tissue swelling. EFFUSION:None visible. OTHER: Negative. XR/XR shoulder RT min 2V IMPRESSION: No acute radiographic abnormality Electronically authenticated by: XUAN ARIZMENDI Date: 10/11/2024 07:36
--- NOTE | 2024-10-11 07:22 | ED.UPPEXIN1 ---
HPI HPI - Extremity Injury (Upper) General Chief Complaint: Extremity Injury, Upper Stated Complaint: r shoulder pain Time Seen by Provider: 10/11/24 06:51 Source: patient Mode of arrival: walk-in Limitations: no limitations History of Present Illness HPI narrative: 24-year-old female presents for right shoulder pain. It started when she rolled over in bed at 3 or 4:00 this morning. She states that she believes her arm was above her head when it happened. She did not fall out of bed. It was not hurting when she went to bed she is never had problems with this shoulder. She is right-handed. It hurts more to move it. Related Data Home Medications ?Medication ?Instructions ?Recorded ?Confirmed metoprolol succinate 25 mg 25 mg PO DAILY 10/11/24 10/11/24 tablet,extended release 24 hr norethindrone (contraceptive) 0.35 mg 10/11/24 mg tablet Previous Rx's ?Medication ?Instructions ?Recorded labetalol 200 mg tablet 200 mg PO TID blood pressure 30 09/30/23 days #90 tabs nifedipine 30 mg tablet,extended 30 mg PO DAILY 30 days #30 tabs 10/01/23 release 24 hr (Procardia XL) etodolac 400 mg tablet 400 mg PO Q8H PRN pain #20 tabs 10/11/24 Allergies Allergy/AdvReac Type Severity Reaction Status Date / Time labetalol Allergy Mild Unknown Verified 10/11/24 06:34 Opioid HPI Opioid Management Most Recent Pain and Opioid Data: Last Pain Scale 9 10/11/24 07:36 10/11/24 Last MAR Pain Assessment 10/11/24 07:36 Ur Phencyclidine Scrn Negative (NEGATIVE) 09/25/23 14:00 09/25/23 Review of Systems ROS Narrative A ten point review of systems is negative except as noted above. PFSH PFSH Medical History (Updated 10/11/24 @ 07:42 by Alex Darnell MD) GERD (gastroesophageal reflux disease) ?K21.9 - Gastro-esophageal reflux disease without esophagitis (ICD-10) Surgical History (Updated 06/18/23 @ 01:36 by Natalia Tsang) History of kidney surgery ?Z98.890 - Other specified postprocedural states (ICD-10) History of placement of ear tubes ?Z96.22 - Myringotomy tube(s) status (ICD-10) History of appendectomy ?Z90.49 - Acquired absence of other specified parts of digestive tract (ICD-10) History of tonsillectomy and adenoidectomy ?Z90.89 - Acquired absence of other organs (ICD-10) Family History (Updated 06/18/23 @ 01:29 by Natalia Tsang) Mother Family history of hypertension Family history of diabetes mellitus Family history of myocardial infarction Grandmother Family history of hypertension Family history of diabetes mellitus Social History (Updated 06/18/23 @ 01:32 by Natalia Tsang) Within the past year, how often did you have a drink containing alcohol: monthly or less Within the past year, how many standard drinks containing alcohol did you have on a typical day: 1 or 2 Within the past year, how often did you have six or more drinks on one occasion: never Total score: 0 Score interpretation: A score less than 3 is consistent with normal alcohol consumption. Smoking status: Never smoker Non-prescribed substance use: denies use Highest level of school completed/degree received: some college, no degree Little interest or pleasure in doing things: not at all Feeling down, depressed, or hopeless: not at all Feel stressed/tense/nervous/anxious/difficulty sleeping: not at all Do you think of yourself as: straight/heterosexual Gender Identity: female Exam Narrative Exam Narrative: Nurses note and vital signs reviewed and patient is not hypoxic. General: The patient is pacing in the room when I walk in. Skin: Warm, dry, no pallor noted. There is no rash noted. Head: Normocephalic, atraumatic Eye: Normal conjunctiva, no drainage Ears, Nose, Mouth, and Throat: oral mucosa is moist. Nares patent. Cardiovascular: Regular Rate and Rhythm Respiratory: Patient is in no distress, no accessory muscle use, lungs are clear to auscultation, no wheezing, rales or rhonchi Back: non-tender GI: Nontender Musculoskeletal: The right shoulder has no deformity. It has good range of motion. No bruising or rash or abrasion. Elbow is nontender and radial pulse 2+. Neurological: A&O, normal speech Psychiatric: Cooperative Constitutional Vital Signs, click to edit/add: Last Vital Signs Temp 97.6 F 10/11/24 06:31 Pulse 89 10/11/24 06:31 Resp 18 10/11/24 06:31 BP 117/84 10/11/24 06:31 Pulse Ox 100 10/11/24 06:39 O2 Del Method Room Air 10/11/24 06:39 Course Vital Signs Vital signs: Vital Signs Temperature 97.6 F 10/11/24 06:31 Pulse Rate 89 10/11/24 06:31 Respiratory Rate 18 10/11/24 06:31 Blood Pressure 117/84 10/11/24 06:31 Pulse Oximetry 100 10/11/24 06:31 Oxygen Delivery Method Room Air 10/11/24 06:31 Temperature 97.6 F 10/11/24 06:31 Pulse Rate 89 10/11/24 06:31 Respiratory Rate 18 10/11/24 06:31 Blood Pressure 117/84 10/11/24 06:31 Pulse Oximetry 100 10/11/24 06:39 Oxygen Delivery Method Room Air 10/11/24 06:39 MDM - Extremity Injury (Upper) MDM Narrative Medical decision making narrative: X-ray per radiology shows no acute findings. Sling applied, application checked by me and found to be appropriate, she is neurovascular intact. She will follow-up with her family doctor if there is no improvement. Treatment diagnosis and follow-up were discussed with the patient. Differential Diagnosis Differential diagnosis: Likely dislocation of shoulder and other (Shoulder fracture, shoulder strain) Imaging Data Right shoulder x-ray: Radiologist's impression: ITS Impressions Shoulder X-Ray 10/11/24 06:51 IMPRESSION: No acute radiographic abnormality Electronically authenticated by: XUAN ARIZMENDI Date: 10/11/2024 07:36 Discharge Plan Discharge Chief Complaint: Extremity Injury, Upper Clinical Impression: Right shoulder strain Patient Disposition: Home, Self-Care Time of Disposition Decision: 07:42 Condition: Good Mode of Transportation: Private Vehicle Prescriptions / Home Meds: New etodolac 400 mg tablet 400 mg PO Q8H PRN (Reason: pain) Qty: 20 0RF No Action metoprolol succinate 25 mg tablet extended release 24 hr 25 mg PO DAILY norethindrone (contraceptive) 0.35 mg tablet labetalol 200 mg Tablet 200 mg PO TID 30 Days Qty: 90 0RF nifedipine [Procardia XL] 30 mg tablet extended release 24hr 30 mg PO DAILY 30 Days Qty: 30 0RF Print Language: [place] Citizen Instructions: Rotator Cuff Injury (ED), How to Use a Sling (ED) Referrals: MEKHI GAMA [Primary Care Provider] - 1 week
[2024-10-11] MEDS: KETOROLAC TROMETHAMINE 60 MG/2 ML VIAL IM (07:36)
== END 2024-10-11 08:01 | disposition home or self-care (01) ==
PROVIDERS: Emergency Provider Emergency Medicine; Family Provider Family Medicine; PCP Family Medicine
DX: S46.911A Strain of unspecified muscle, fascia and tendon at shoulder and upper arm level, right arm, initial encounter (principal); X58.XXXA Exposure to other specified factors, initial encounter
CPT/HCPCS: 73030; 96372; 99284; J1885

== ENCOUNTER 2024-10-26 13:32 | Outpatient (OUT) | payer OTHER, SELFPAY ==
--- NOTE | 2024-10-26 13:35 | CT_ITS ---
[address] [address] Patient Name: ASHLIE KELSEY MRN: [id number] date: 2000 Sex: F Assigned Patient Location: CT Current Patient Location: Accession/Order Number: [id number] Exam Date: 10/26/2024 13:40 Report Date: 10/28/2024 05:03 At the request of: ANDIE SANCHEZ Procedure: CT angio chest EXAMINATION: CT angio chest, CT angio abdomen pelvis HISTORY: Increased velocity of abdominal aorta, R/O thoracic/abd abno COMPARISON: No relevant comparison available. TECHNIQUE: After obtaining the patient's consent, CT images of the chest, abdomen and pelvis were obtained with non-ionic intravenous contrast material. Axial, Coronal, and Sagittal images. Multi-planar reformatted/3-D images were created to optimize visualization of vascular anatomy. Dose reduction techniques were achieved by using automated exposure control and/or adjustment of mA and/or kV according to patient size and/or use of iterative reconstruction technique. FINDINGS: PULM VASC: No pulmonary embolism or abnormal opacity. LUNGS: No visible pulmonary disease. PLEURA: No mass, effusion, or pneumothorax. ELMIRA: No mass or adenopathy. MEDIASTINUM: No mass or adenopathy. CARDIAC: No enlargement, pericardial effusion, or pericardial thickening. CHEST WALL: No mass or axillary adenopathy. AORTA/VASCULAR: No aneurysm or dissection. CELIAC ARTERY: Normal celiac vessels. SMA: Normal mesenteric vessels. RENAL ARTERIES: Normal renal vessels. LIVER: No enlargement, atrophy, abnormal density, or significant focal lesion. BILIARY: No visible dilatation or calcification. PANCREAS: No lesion, fluid collection, ductal dilatation, or atrophy. SPLEEN: No enlargement or focal lesion. ADRENALS: No mass or enlargement. KIDNEYS: No mass, obstruction, or calcification. BOWEL/MESENTERY: No visible mass, obstruction, or bowel wall thickening. RETROPERITONEUM: No mass or adenopathy. LYMPHNODES: No pelvic lymphadenopathy. BLADDER: No stones or focal wall thickening. PELVIC ORGANS: Irregular thin-walled enhancing structure within left ovary likely collapsing cyst/follicle. Small amount of free fluid within pelvic cul-de-sac likely from recently ruptured cyst. ABDOMINAL WALL: No mass or hernia. BONES: No bony lesion or fracture. OTHER: Negative. CT/CT angio chest IMPRESSION: 1. Normal appearance of the thoracic and abdominal aorta and branches. 2. Ruptured left ovarian cyst and small amount of free fluid within the adnexa and pelvic cul-de-sac. Electronically authenticated by: RADHA CLARKE Date: 10/28/2024 05:03
--- NOTE | 2024-10-26 13:35 | CT_ITS ---
[address] [address] Patient Name: ASHLIE KELSEY MRN: [id number] date: 2000 Sex: F Assigned Patient Location: CT Current Patient Location: Accession/Order Number: [id number] Exam Date: 10/26/2024 13:40 Report Date: 10/28/2024 05:03 At the request of: ANDIE SANCHEZ Procedure: CT angio abdomen pelvis EXAMINATION: CT angio chest, CT angio abdomen pelvis HISTORY: Increased velocity of abdominal aorta, R/O thoracic/abd abno COMPARISON: No relevant comparison available. TECHNIQUE: After obtaining the patient's consent, CT images of the chest, abdomen and pelvis were obtained with non-ionic intravenous contrast material. Axial, Coronal, and Sagittal images. Multi-planar reformatted/3-D images were created to optimize visualization of vascular anatomy. Dose reduction techniques were achieved by using automated exposure control and/or adjustment of mA and/or kV according to patient size and/or use of iterative reconstruction technique. FINDINGS: PULM VASC: No pulmonary embolism or abnormal opacity. LUNGS: No visible pulmonary disease. PLEURA: No mass, effusion, or pneumothorax. ELMIRA: No mass or adenopathy. MEDIASTINUM: No mass or adenopathy. CARDIAC: No enlargement, pericardial effusion, or pericardial thickening. CHEST WALL: No mass or axillary adenopathy. AORTA/VASCULAR: No aneurysm or dissection. CELIAC ARTERY: Normal celiac vessels. SMA: Normal mesenteric vessels. RENAL ARTERIES: Normal renal vessels. LIVER: No enlargement, atrophy, abnormal density, or significant focal lesion. BILIARY: No visible dilatation or calcification. PANCREAS: No lesion, fluid collection, ductal dilatation, or atrophy. SPLEEN: No enlargement or focal lesion. ADRENALS: No mass or enlargement. KIDNEYS: No mass, obstruction, or calcification. BOWEL/MESENTERY: No visible mass, obstruction, or bowel wall thickening. RETROPERITONEUM: No mass or adenopathy. LYMPHNODES: No pelvic lymphadenopathy. BLADDER: No stones or focal wall thickening. PELVIC ORGANS: Irregular thin-walled enhancing structure within left ovary likely collapsing cyst/follicle. Small amount of free fluid within pelvic cul-de-sac likely from recently ruptured cyst. ABDOMINAL WALL: No mass or hernia. BONES: No bony lesion or fracture. OTHER: Negative. CT/CT angio abdomen pelvis IMPRESSION: 1. Normal appearance of the thoracic and abdominal aorta and branches. 2. Ruptured left ovarian cyst and small amount of free fluid within the adnexa and pelvic cul-de-sac. Electronically authenticated by: RADHA CLARKE Date: 10/28/2024 05:03
--- OUTSIDE RECORDS SUMMARY | 2024-10-26 13:46 | XMS_ITS | CCD ---
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 ratio] 18.0 mg/mg Normal [facility] Comment on above: Performed By: #### C MP #### [facility] [address] [address] [address] Karolyn Dubon US PREG TVon 02-27-2023 [...] by: DARLIN GAMBINO Date: 2023-02-27 21:21 Normal [facility] XR FOOT LT MIN 3 VIEWSon XR FOOT LT MIN 3 VIEWS EXAM: XR FOOT LT MIN 3 VIEWS HISTORY: Foot pain COMPARISON: None. TECHNIQUE: 3 views FINDINGS: No osseous lesion, fracture, dislocation or subluxation. Joint spaces are normal. No visualized effusion. No visualized soft tissue edema. IMPRESSION: Normal x-rays Electronically authenticated by: XUAN SPRAGUE Date: 2022-04-28 22:53 Normal [facility] Complete Blood Count with Au to Diffon 02-08-2022 Basophils (Bld) [#/Vol] 0.04 10*3/uL Normal 0.00-0.20 [facility] Comment on above: Performed By: #### T SH reflex FT4, CMP, CBCAD #### [facility] [address], [place] [id number] Basophils/100 WBC (Bld) 0.7 % Normal [facility] Specialist Comment on above: Performed By: #### T SH reflex FT4, CMP, CBCAD #### [facility] [address], [place] [id number] Eosinophils (Bld) [#/Vol] 0.06 10*3/uL Normal 0.02-0.50 [facility] Special[facility] Comment on above: Performed By: #### T SH reflex FT4, CMP, CBCAD #### [facility] [address], [place] [id number] Eosinophils/100 WBC (Bld) 1.1 % Normal [facility] Specialist Comment on above: Performed By: #### T SH reflex FT4, CMP, CBCAD #### [facility] [address], [place] [id number] Erythrocyte distribution width (RBC) [Ratio] 11.9 % Normal 11.0-15.0 [facility] Specialist Comment on above: Performed By: #### T SH reflex FT4, CMP, CBCAD #### [facility] [address], [place] [id number] Hematocrit (Bld) [Volume fraction] 42.2 % Normal 35.0-47.0 [facility] Specialist Comment on above: Performed By: #### T SH reflex FT4, CMP, CBCAD #### [facility] [address], [place] [id number] Hemoglobin (Bld) [Mass/Vol] 14.4 g/dL Normal 11.6-15.5 [facility] Specialist Comment on above: Performed By: #### T SH reflex FT4, CMP, CBCAD #### [facility] [address], [place] [id number] Lymphocytes (Bld) [#/Vol] 2.1 10*3/uL Normal 0.9-3.9 [facility] Special[facility] Comment on above: Performed By: #### T SH reflex FT4, CMP, CBCAD #### [facility] [address], [place] [id number] Lymphocytes/100 WBC (Bld) 38.5 % Normal [facility] Specialist Comment on above: Performed By: #### T SH reflex FT4, CMP, CBCAD #### [facility] [address], [place] [id number] MCH (RBC) [Entitic mass] 30.1 pg Normal 27.0-33.0 [facility] Specialist Comment on above: Performed By: #### T SH reflex FT4, CMP, CBCAD #### [facility] [address], [place] [id number] MCHC (RBC) [Mass/Vol] 34.1 g/dL Normal 32.0-36.0 [facility] Specialist Comment on above: Performed By: #### T SH reflex FT4, CMP, CBCAD #### [facility] [address], [place] [id number] MCV (RBC) [Entitic vol] 88 fL Normal 80-100 [facility] Specialist Comment on above: Performed By: #### T SH reflex FT4, CMP, CBCAD #### [facility] [address], [place] [id number] Monocytes (Bld) [#/Vol] 0.4 10*3/uL Normal 0.2-0.9 [facility] Comment on above: Performed By: #### T SH reflex FT4, CMP, CBCAD #### [facility] [address], [place] [id number] Monocytes/100 WBC (Bld) 6.5 % Normal [facility] Specialist Comment on above: Performed By: #### T SH reflex FT4, CMP, CBCAD #### [facility] [address], [place] [id number] Neutrophils (Bld) [#/Vol] 2.9 10*3/uL Normal 1.5-7.8 [facility] Specialist Comment on above: Performed By: #### T SH reflex FT4, CMP, CBCAD #### [facility] [address], [place] [id number] Neutrophils/100 WBC (Bld) 53.0 % Normal [facility] Specialist Comment on above: Performed By: #### T SH reflex FT4, CMP, CBCAD #### [facility] [address], [place] [id number] Platelet mean volume (Bld) [Entitic vol] 10.40 fL Normal 7.50-12.50 [facility] Specialist Comment on above: Performed By: #### T SH reflex FT4, CMP, CBCAD #### [facility] [address], [place] [id number] Platelets (Bld) [#/Vol] 318 10*3/uL Normal 140-400 [facility] Specialist Comment on above: Performed By: #### T SH reflex FT4, CMP, CBCAD #### [facility] [address], [place] [id number] RBC (Bld) [#/Vol] 4.78 10*6/uL Normal 3.90-5.20 [facility] Specialist Comment on above: Performed By: #### T SH reflex FT4, CMP, CBCAD #### [facility] [address], [place] [id number] RDW-SD 38.5 fL Normal 37.0-50.0 [facility] [employer] Supervisor Comment on above: Performed By: #### T SH reflex FT4, CMP, CBCAD #### [facility] [address], [place] [id number] WBC (Bld) [#/Vol] 5.5 10*3/uL Normal 3.8-11.0 [place] [facility] [place] [employer] [facility] Comment on above: Performed By: #### T SH reflex FT4, CMP, CBCAD #### [facility] [address], [place] [id number] Comprehensive Metabolic Pane ruth 02-08-2022 Albumin [Mass/Vol] 4.5 g/dL Normal 3.6-5.1 [place] [facility] [place] [employer] [facility] Comment on above: Performed By: #### T SH reflex FT4, CMP, CBCAD #### [facility] [address], [place] [id number] Albumin/Globulin [Mass ratio] 1.9 {ratio} Normal 1.0-2.5 [facility] [employer] Supervisor Comment on above: Performed By: #### T SH reflex FT4, CMP, CBCAD #### [facility] [address], [place] [id number] ALP [Catalytic activity/Vol] 45 U/L Normal 35-119 [facility] [employer] Supervisor Comment on above: Performed By: #### T SH reflex FT4, CMP, CBCAD #### [facility] [address], [place] [id number] ALT [Catalytic activity/Vol] 17 U/L Normal 6-33 [facility] [employer] Supervisor Comment on above: Result Comment: 10/24 Female reference range changed. Performed By: #### T SH reflex FT4, CMP, CBCAD #### [facility] [address], [place] [id number] Anion gap [Moles/Vol] 18 mmol/L Normal 12-20 [facility] [employer] Supervisor Comment on above: Result Comment: Effe ctive 11/29/2019 reference range changed. Performed By: #### T SH reflex FT4, CMP, CBCAD #### [facility] [address], [place] [id number] AST [Catalytic activity/Vol] 19 U/L Normal 9-34 [facility] Specialist Comment on above: Performed By: #### T SH reflex FT4, CMP, CBCAD #### [facility] [address], [place] [id number] Bilirubin [Mass/Vol] 0.31 mg/dL Normal 0.30-1.20 [facility] Specialist Comment on above: Performed By: #### T SH reflex FT4, CMP, CBCAD #### [facility] [address], [place] [id number] BUN/CREA 17 Ratio Normal 6-22 [facility] Comment on above: Performed By: #### T SH reflex FT4, CMP, CBCAD #### [facility] [address], [place] [id number] Calcium [Mass/Vol] 9.4 mg/dL Normal 8.6-10.2 [facility] Comment on above: Performed By: #### T SH reflex FT4, CMP, CBCAD #### [facility] [address], [place] [id number] Chloride [Moles/Vol] 103 mmol/L Normal 98-107 [facility] Specialist Comment on above: Performed By: #### T SH reflex FT4, CMP, CBCAD #### [facility] [address], [place] [id number] CO2 [Moles/Vol] 23 mmol/L Normal 20-31 [facility] Specialist Comment on above: Performed By: #### T SH reflex FT4, CMP, CBCAD #### [facility] [address], [place] [id number] Creatinine [Mass/Vol] 0.8 mg/dL Normal 0.6-1.4 [facility] Specialist Comment on above: Performed By: #### T SH reflex FT4, CMP, CBCAD #### [facility] [address], [place] [id number] eGFRAA 119 mL/min/1.73m2 Normal >60 [facility] Comment on above: Performed By: #### T SH reflex FT4, CMP, CBCAD #### [facility] [address], [place] [id number] eGFRNAA 99 mL/min/1.73m2 Normal >60 [facility] Model Making Supervisor Comment on above: Performed By: #### T SH reflex FT4, CMP, CBCAD #### [facility] [address], [place] [id number] Globulin (S) [Mass/Vol] 2.4 g/dL Normal 1.9-3.7 [facility] Model Making Supervisor Comment on above: Performed By: #### T SH reflex FT4, CMP, CBCAD #### [facility] [address], [place] [id number] Glucose [Mass/Vol] 92 mg/dL Normal 65-99 [facility] Model Making Supervisor Comment on above: Result Comment: For FASTING Glucose --- ADA reference ranges: Normal 65-99 mg/dl Prediabetes 100-125 Diabetes >/= 126 Performed By: #### T SH reflex FT4, CMP, CBCAD #### [facility] [address], [place] [id number] Potassium [Moles/Vol] 4.3 mmol/L Normal 3.5-5.5 [facility] Model Making Supervisor Comment on above: Performed By: #### T SH reflex FT4, CMP, CBCAD #### [facility] [address], [place] [id number] Protein [Mass/Vol] 6.9 g/dL Normal 6.1-8.1 [facility] rn [place] Model Making Supervisor Comment on above: Performed By: #### T SH reflex FT4, CMP, CBCAD #### [facility] [address], [place] [id number] Sodium [Moles/Vol] 139 mmol/L Normal 135-146 [facility] Model Making Supervisor Comment on above: Performed By: #### T SH reflex FT4, CMP, CBCAD #### [facility] [address], [place] [id number] Urea nitrogen [Mass/Vol] 13 mg/dL Normal 7-25 [facility] Model Making Supervisor Comment on above: Performed By: #### T SH reflex FT4, CMP, CBCAD #### [facility] [address], [place] [id number] TSH w/ Reflex to Free T4on 0 - TSH 1.140 uIU/mL Normal 0.400-4.50 0 [facility] Model Making Supervisor Comment on above: Performed By: #### T SH reflex FT4, CMP, CBCAD #### [facility] [address], [place] [id number] COVID Quick Testingon 2020 Result Negative Penemarie K Murphy [facility] [employer] Other Quick Strepon 08-22-2021 S. pyogenes Org specific cx Ql (Throat) Negative [email or web address] Other Quick Strep Penemarie K Murphy [facility] [employer] Other Initial Visit (Rheumatology) on 03-06-2021 Initial Visit (Rheumatology) Diagnoses/Problems Assessed Arthralgia (599.40) (M25.50) Provider Impressions Assessment: Prior rashes and [...] They agree with this plan. Plan: 1. Cong and her mother counseled about the above and all questions were answered. 2. They will contact our office if unexplained fevers or rashes return. 3. Rheumatology office followup as needed. CC: Dr. Kramer Chief Complaint NPV. Fevers on and off. Pain in hips and back. History of Present IllnessRheumatology consultation is requested by Dr. Kramer of [facility] for this 20 year old female. Today [...] or PIPs of the fingers. Fist and senior datastage developer are good. 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: Commercial Insurance [employer] DESCRIPTION [...] Racheal Elena Date Saved: 06/16/2019 11:25 am [facility] Provider Orderson 06-16-2019 Provider Orders [id number] [facility] US Kidney/Bladder Completeon 06-15-2019 US Kidney/Bladder Complete [...] MD 06/15/19 8:18 pm Technologist: Angelic BUI [facility] Progress Noteon 05-20-2018 HIM IP Note OR [employer] Work[employer] [facility] KIDNEY W FLOW AND FUNCTIO N W [...] the right.Interpreted by:Reagan Berry MDSigned by:Reagan Berry MD18Final result Normal [facility] US RENAL COMPLETEon 03-05-20 18 US [...] by:Patel Chang Jr., DOSigned by:Patel Chang Jr., DO03/05/18Final result Normal [facility] FL RETROGRADE PYELOGRAM RIGSabrina Stanton 12-29-2017 FL RETROGRADE PYELOGRAM RIGHT Radiology exam is complete. No Radiologist dictation. Please follow up with ordering provider. Final result Normal [facility] Discharge Summaryon 12-25-19 18 HIM IP Note OR [employer] Worker Normal [facility] Plan of Careon 12-25-2017 HIM IP Note OR [employer] Worker Normal [facility] Progress Noteon 12-25-2017 HIM IP Note OR [employer] Worker Normal [facility] XR ABDOMEN (KUB) (SINGLE AP VIEW)on [...] adverse features evident.Interpreted by:NELLY Rollinsigned by:Rafa Nunes MD12/24/17inal result Normal [facility] Basic Metab w/rfx MGon 12-24 (cont.) Normal [facility] Comment on above: Result Comment: Aver age GFR for <20 years old not available.Chronic Kidney Disease: <60 mL/min/1.73sq mKidney failure: <15 mL/min/1.73sq meGFR calculated using average adult body mass. Additional eGFR calculator available at:http://www.[employer].com/multiple_crcl_2012.htmCrystal Clinic Orthopedic CenterSquirro Laboratories [address] [place] [address] Performed By: #### C DARRIUS BMPX ####[employer] [place] [address] Anion gap 15 mmol/L Normal 9-17 [facility] Comment on above: Performed By: #### C BC, BMPX ####[employer] [place] [address] Calcium 7.9 mg/dL Low 8.4-10.2 [facility] Comment on above: Performed By: #### C BC, BMPX ####[facility] CenterticketstreetScnbptoeswfi[address] [place] [address] Chloride 103 mmol/L Normal 98-107 [facility] Comment on above: Performed By: #### C BC, BMPX ####[facility] Center[facility]cee [address] [place] [address] CO2 19 mmol/L Low 20-31 [facility] Comment on above: Performed By: #### C BC, BMPX ####[facility] CenterticketstreetWckgbothwlmh[address] [place] [address] Creatinine 0.67 mg/dL Normal 0.50-0.90 [facility] Comment on above: Performed By: #### C BC, BMPX ####[facility] CenterticketstreetGvaiviiujlqe[address] [place] [address] eGFR (non-black) Pediatric GFR requir es additional information. Refer to DEP website for Normal >60 [facility] Comment on above: Result Comment: calc ulator. Performed By: #### C BC, BMPX ####[facility] CenterticketstreetZvobfosteafy[address] [place] [address] Glucose mass conc 128 mg/dL High 60-100 [facility] Comment on above: Performed By: #### C BC, BMPX ####[facility] CenterSquirr[facility] [address] [place] [address] Potassium molar conc 4.3 mmol/L Normal 3.6-4.9 [facility] Comment on above: Performed By: #### C BC, BMPX ####[facility] CenterSquir[facility] [address] [place] [address] Sodium 137 mmol/L Normal 135-144 [facility] Comment on above: Performed By: #### C BC, BMPX ####[address] [place] [address] Urea nitrogen 9 mg/dL Normal 5-18 [facility] Comment on above: Performed By: #### C BC, BMPX ####[facility] [address] [place] [address] BUN/CRE Ratio NOT REPORTED Normal 9-20 [facility] Comment on above: Performed By: #### C BC, BMPX ####[address] [address] eGFR (non-black) NOT REPORTED Normal >60 [facility] Comment on above: Performed By: #### C BC, BMPX ####[address] [address] Staging: NOT REPORTED Normal [facility] Comment on above: Performed By: #### C BC, BMPX ####[address] [address] CBCon 12-24-2017 Erythrocyte distribution width Auto Ratio (RBC) 12.4 % Normal 11.8-14.4 [facility] Comment on above: Performed By: #### C BC, BMPX ####[address] [address] Erythrocytes (RBC) 0.0 per 100 WBC Normal 0.0 M [facility] Comment on above: Result Comment: [address] [place] [address] Performed By: #### C BC, BMPX ####[address] [address] Erythrocytes (RBC) 3.87 10*6/uL Low 3.95-5.11 [facility] Comment on above: Performed By: #### C BC, BMPX ####[address] [address] Hematocrit (HCT) 34.3 % Low 36.3-47.1 [facility] Comment on above: Performed By: #### C BC, BMPX ####[facility] Center[facility]ce[facility] [address] [place] [address] Hemoglobin mass conc (Bld) 11.6 g/dL Low 11.9-15.1 [facility] Comment on above: Performed By: #### C BC, BMPX ####[facility] Center[facility]ce[facility] [address]av[address]Ttf[address] [place] [address] MCH 30.0 pg Normal 25.0-35.0 [facility] Comment on above: Performed By: #### C BC, BMPX ####[facility] Center[facility] [address] [address] MCHC mass conc (RBC) 33.8 g/dL Normal 28.4-34.8 [facility] Comment on above: Performed By: #### C BC, BMPX ####[facility] Center[facility] [address] [address] MCV 88.6 fL Normal 78.0-102.0 [facility] Comment on above: Performed By: #### C BC, BMPX ####[facility] Center[facility] [address] [address] Platelet mean volume (PMV) 10.5 fL Normal 8.1-13.5 [facility] Comment on above: Performed By: #### C BC, BMPX ####[address] [address] Platelets 217 10*3/uL Normal 138-453 [facility] Comment on above: Performed By: #### C BC, BMPX ####[address] [address] WBC (Leukocytes) 12.6 10*3/uL Normal 4.5-13.5 [facility] Comment on above: Performed By: #### C BC, BMPX ####[address] [address] Creatinine,Fluidon 8 Creatinine 0.7 mg/dL Normal [facility] Comment on above: Result Comment: Ther e are no normals for body fluid samples.[address] [address] Performed By: #### F LCRE ####[address] [address] Type of Specimen MAYKEL FLUID Normal [facility] Comment on above: Performed By: #### F LCRE ####[address] [address] Cult,Urineon 12-24-2017 Cult,Urine Specimen Description .CATHETERIZED URINE Special Requests FIRST INSERTION Culture NO GROWTH Report Status FINAL 12/24/2017 Normal [facility] Comment on above: Performed By: #### U RC ####[address] [address] Plan of Careon 12-24-2017 HIM IP Note OR [employer] Worker Normal [facility] HIM IP Note OR [employer] Worker Normal [facility] Progress Noteon 12-24-2017 HIM IP Note OR [employer] Worker Normal [facility] HIM IP Note OR [employer] Worker Normal [facility] Basic Metab w/rfx MGon 12-23 (cont.) Normal [facility] Comment on above: Result Comment: Aver age GFR for <20 years old not available.Chronic Kidney Disease: <60 mL/min/1.73sq mKidney failure: <15 mL/min/1.73sq meGFR calculated using average adult body mass. Additional eGFR calculator available at:http://www.Eyebrid Blaze.[employer]/multiple_crcl_2012.htm[address] [address] Performed By: #### C BC, BMPX ####[facility] CenterticketstreetHzfnymdowndw40[address] [place] [address] Anion gap 14 mmol/L Normal 9-17 [facility] Comment on above: Performed By: #### C BC, BMPX ####[facility] [address] [place] [address] Calcium 7.9 mg/dL Low 8.4-10.2 [facility] Comment on above: Performed By: #### C BC, BMPX ####[facility] [address] [place] [address] Chloride 102 mmol/L Normal 98-107 [facility] Comment on above: Performed By: #### C BC, BMPX ####[facility] [address] [place] [address] CO2 21 mmol/L Normal 20-31 [facility] Comment on above: Performed By: #### C BC, BMPX ####[facility] [address] [place] [address] Creatinine 0.87 mg/dL Normal 0.50-0.90 [facility] Comment on above: Performed By: #### C BC, BMPX ####[facility] [address] [place] [address] eGFR (non-black) Pediatric GFR requir es additional information. Refer to NKDEP website for Normal >60 [facility] Comment on above: Result Comment: calc ulator. Performed By: #### C BC, BMPX ####[facility] CenterSquirr[facility] [address] [place] [address] Glucose mass conc 154 mg/dL High 60-100 [facility] Comment on above: Performed By: #### C BC, BMPX ####[facility] [address] [place] [address] Potassium molar conc 4.0 mmol/L Normal 3.6-4.9 [facility] Comment on above: Performed By: #### C BC, BMPX ####[address] [address] Sodium 137 mmol/L Normal 135-144 [facility] Comment on above: Performed By: #### C BC, BMPX ####[address] [address] Urea nitrogen 10 mg/dL Normal 5-18 [facility] Comment on above: Performed By: #### C BC, BMPX ####[address] [address] BUN/CRE Ratio NOT REPORTED Normal 9-20 [facility] Comment on above: Performed By: #### C BC, BMPX ####[address] [address] eGFR (non-black) NOT REPORTED Normal >60 [facility] Comment on above: Performed By: #### C BC, BMPX ####[address] [address] Staging: NOT REPORTED Normal [facility] Comment on above: Performed By: #### C BC, BMPX ####[address] [address] CBCon 12-23-2017 Erythrocyte distribution width Auto Ratio (RBC) 12.1 % Normal 11.8-14.4 [facility] Comment on above: Performed By: #### C BC, BMPX ####[address] [address] Erythrocytes (RBC) 4.43 10*6/uL Normal 3.95-5.11 [facility] Comment on above: Performed By: #### C BC, BMPX ####[facility] CenterticketstreetHadpridqbugs[address] [place] [address] Erythrocytes (RBC) 0.0 per 100 WBC Normal 0.0 M [facility] Comment on above: Result Comment: [facility] [address] [place] [address] Performed By: #### C BC, BMPX ####[address] [address] Hematocrit (HCT) 39.5 % Normal 36.3-47.1 [facility] Comment on above: Performed By: #### C BC, BMPX ####[address] [address] Hemoglobin mass conc (Bld) 13.4 g/dL Normal 11.9-15.1 [facility] Comment on above: Performed By: #### C BC, BMPX ####[address] [address] MCH 30.2 pg Normal 25.0-35.0 [facility] Comment on above: Performed By: #### C BC, BMPX ####[address] [address] MCHC mass conc (RBC) 33.9 g/dL Normal 28.4-34.8 [facility] Comment on above: Performed By: #### C BC, BMPX ####[address] [address] MCV 89.2 fL Normal 78.0-102.0 [facility] Comment on above: Performed By: #### C BC, BMPX ####[address] [address] Platelet mean volume (PMV) 10.2 fL Normal 8.1-13.5 [facility] Comment on above: Performed By: #### C BC, BMPX ####[address] [address] Platelets 232 10*3/uL Normal 138-453 [facility] Comment on above: Performed By: #### C BC, BMPX ####[facility] Eblzqooveexb[address]184 [place] [address] WBC (Leukocytes) 11.8 10*3/uL Normal 4.5-13.5 [facility] Comment on above: Performed By: #### C BC, BMPX ####[facility] [address] [place] [address] Interval History and Physion 12-23-2017 HIM IP Note OR [employer] Normal [facility] Op Noteon 12-23-2017 HIM IP Note OR [employer] Normal [facility] Cult,Urineon 12-20-2017 Cult,Urine Specimen Description .CLEAN CATCH URINE Special Requests NOT REPORTED Culture NO GROWTH Report Status FINAL 12/20/2017 Normal [facility] Comment on above: Performed By: #### U RC ####[address] [address] BUN + Creatinineon 8 (cont.) Normal [facility] Comment on above: Result Comment: Aver age GFR for <20 years old not available.Chronic Kidney Disease: <60 mL/min/1.73sq mKidney failure: <15 mL/min/1.73sq meGFR calculated using average adult body mass. Additional eGFR calculator available at:[email or web address] [facility] [address] [place] [address] Performed By: #### H H, BUNCRT, LYTE ####[facility] [place] [address] Creatinine 0.72 mg/dL Normal 0.50-0.90 [facility] Comment on above: Performed By: #### H H, BUNCRT, LYTE ####[address] [address] eGFR (non-black) Pediatric GFR requir es additional information. Refer to NKDEP website for Normal >60 [facility] Comment on above: Result Comment: calc ulator. Performed By: #### H H, BUNCRT, LYTE ####[facility] Center[facility]irrly Xjdzmdhgbspn2850 [place] [address] Urea nitrogen 12 mg/dL Normal 5-18 [facility] Comment on above: Performed By: #### H H, BUNCRT, LYTE ####[facility] CenterticketstreetJqzyjsazbbjx[address] [place] [address] eGFR (non-black) NOT REPORTED Normal >60 [facility] Comment on above: Performed By: #### H H, BUNCRT, LYTE ####[facility] CenterticketstreetQhbvlgoyhylt[address] [place] [address] Staging: NOT REPORTED Normal [facility] Comment on above: Performed By: #### H H, BUNCRT, LYTE ####[facility] CenterticketstreetEbnarudelapb[address] [place] [address] Electrolyteson 12-19-2017 Anion gap 12 mmol/L Normal 9-17 [facility] Comment on above: Result Comment: [facility] [place] [address] Performed By: #### H H, BUNCRT, LYTE ####[facility] Center[facility]ir[facility] Bdhjvslramtq8091 [place] [address] Chloride 104 mmol/L Normal 98-107 [facility] Comment on above: Performed By: #### H H, BUNCRT, LYTE ####[facility] [place] [address] CO2 23 mmol/L Normal 20-31 [facility] Comment on above: Performed By: #### H H, BUNCRT, LYTE ####[facility] [place] [address] Potassium molar conc 3.7 mmol/L Normal 3.6-4.9 [facility] Comment on above: Performed By: #### DARRYL Cary LYTE ####[facility] Xqmsjcopyqcj6062 [place] [address] Sodium 139 mmol/L Normal 135-144 [facility] Comment on above: Performed By: #### DARRYL Cary LYTE ####[facility] [address] [place] [address] Hgb/Hcton 12-19-2017 Hematocrit (HCT) 40.4 % Normal 36.3-47.1 [facility] Comment on above: Result Comment: [facility] [address] [place] [address] Performed By: #### DARRYL Cary LYTE ####[facility] Q[address] [place] [address] Hemoglobin mass conc (Bld) 13.3 g/dL Normal 11.9-15.1 [facility] Comment on above: Performed By: #### DARRYL Cary LYTE ####[facility] [address] [place] [address] History and Physicalon 12-19 HIM IP Note OR [employer] Work[employer] Normal [facility] Type + Screenon 12-19-2017 Type + Screen Sample Expiration Arm Band Number [id number] ABO/Rh(D) O POSITIVE Antibody Screen NEGATIVE [address] [address] Normal [facility] Comment on above: Performed By: #### T YS ####[address] [address] Progress Noteon 12-08-2017 HIM IP Note OR [employer] Work[employer] Normal [facility] Cult,Urine,Cathon 11-28-2017 Cult,Urine,Cath Specimen Description .URINE,STRAIGHT CATHETER VCUG Special Requests NOT REPORTED Culture NO GROWTH Report Status FINAL 11/28/2017 Normal [facility] Comment on above: Performed By: #### C [facility] ####[facility] [place] [address] FL VOIDING URETHROCYSTOGRAMo n 11-27-2017 FL VOIDING URETHROCYSTOGRAM EXAMINATION:VOIDING CYSTO URETHROGRAM11/27/2017 1:52 pmCOMPARISON:None.HISTORY:OR DERING SYSTEM PROVIDED HISTORY: Hydronephrosis, unspecified hydronephrosistypeTECHNOLOGI ST PROVIDED HISTORY:Please include oblique views. Please report the volume of contrast instilledin the bladder. If reflux is present, indicate whether it occurs on fillingor voiding.FLUOROSCOPY DOSE AND TYPE OR TIME AND EXPOSURES:1.5 minutes fluoroscopy time.D AP 4.964 Gy dd8DSURCJRC:A total of 370 mL of Cysto-Conray 2 was instilled into the urinary bladder valentina retrograde fashion through a Shell catheter. Urinary bladder fillsnormally. No filling defect identified on the early filling views. There isno evidence for vesicoureteral reflux on filling or voiding. Voidingdemonstrates a normal urethra.IMPRESSION: No evidence for vesicoureteral reflux on filling or emptying.Interpreted by:NELLY Floresigned by:Remy Lei MD11/27/17inal result Normal [facility] History and Physicalon 11-27 HIM IP Note OR [employer] Work[employer] Normal [facility] NM KIDNEY W FLOW AND FUNCTIO [...] 3 curves, obstructive.Interpreted by:NELLY Hiltonigned by:Kirsten Olivo MD11/27/inal result Normal [facility] Coding Summary.on 11-03-2017 Coding Summary. CODING DATE: 017 FINAL [facility] STATUS: Home (Routine DC) PAYOR: [facility] [place] ADMIT DX: REASON FOR VISIT DX: R30.0 [...] Pena Date Saved: 11/03/2017 07:59 pm Normal [facility] C Urineon 11-02-2017 Urine culture, bacteria MicrobiologyPROCEDURE: Urine Culture [R1] U CleanCatch BODY SITE:COLLECTED DATE/TIME: 10/31/2017 09:00 EST RECEIVED DATE/TIME: 10/31/2017 15:30 ESTSTART DATE/TIME: 10/31/2017 15:30 EST FREE TEXT SOURCE:Shanique Munson Eva FFINAL REPORTSFinal Report [] Verified Date/Time: 11/02/2017 06:35 EST2,000 cfu/ml Mixed skin contaminantsPerforming LocationsR1: This test was performed at: [facility], [address] [place] [address], [address]- , [facility] Comment on above: Performed By: #### 2 [id number] ####[facility] [address] [place] [address] Vital Signs Date Time Vital Sign Value Performing Clinician Facility 10-12-2024 12:57-0500 Body mass index (BMI) [Ratio] 31.09 kg/m2 Kurtis Scott CONTROL AREA OPERATOR Work Phone: [facility] 10-12-2024 12:57-0500 Body temperature 97.2 [degF] Kurtis Scott CONTROL AREA OPERATOR Work Phone: [facility] 10-12-2024 12:57-0500 Body weight 77.11 kg Kurtis Scott CONTROL AREA OPERATOR Work Phone: [facility] 10-12-2024 12:57-0500 Diastolic blood pressure 80 mm[Hg] Kurtis Scott CONTROL AREA OPERATOR Work Phone: [facility] 10-12-2024 12:57-0500 Heart rate 92 /min Kurtis Scott CONTROL AREA OPERATOR Work Phone: [facility] 10-12-2024 12:57-0500 SaO2% (BldA) [Mass fraction] 99 % Kurtis Scott CONTROL AREA OPERATOR Work Phone: [facility] 10-12-2024 12:57-0500 Systolic blood pressure 122 mm[Hg] Kurtis Scott CONTROL AREA OPERATOR Work Phone: [facility] 08-22-2021 18:55-0400 Body height 152.4 cm Vanesa Diallo Other [email or web address] Other 08-22-2021 18:55-0400 Body mass index (BMI) [Ratio] 25.39 kg/m2 Vanesa Diallo Other [email or web address] Other 08-22-2021 18:55-0400 Body temperature 100 [degF] Vanesa Diallo Other [email or web address] Other 08-22-2021 18:55-0400 Body weight 58.97 kg Vanesa Diallo Other [email or web address] Other 08-22-2021 18:55-0400 Respiratory rate 16 /min Vanesa Diallo Other [email or web address] Other 08-22-2021 18:55-0400 SaO2% (BldA) [Mass fraction] 98 % Vanesa Diallo Other [email or web address] Other Encounters Encounter Date Encounter Type Care Provider Facility Start: 10-12-2024 End: 10-12-2024 Office outpatient visit 25 minutes Kurtis Scott CONTROL AREA OPERATOR Work Phone: [facility] Comment on above: Tendinopathy of righ t rotator cuff (Primary Dx); Muscle spasm of right shoulder Start: 10-12-2024 End: 10-12-2024 ambulatory KURTIS SCOTT Not Available Start: 07-30-2024 End: 07-30-2024 ambulatory [facility] Start: 07-29-2024 End: 07-29-2024 ambulatory KIRSTEN GRANT Not Available Start: 07-23-2024 End: 07-23-2024 ambulatory [facility] Start: 07-02-2024 End: 07-02-2024 ambulatory [facility] Start: 06-16-2024 End: 06-16-2024 ambulatory TANIA GAMA Not Available Start: 06-08-2024 End: 06-08-2024 ambulatory TANIA GAMA Not Available Start: 06-03-2024 End: 06-03-2024 ambulatory TANIA GAMA [facility] Start: 05-18-2024 End: 05-18-2024 ambulatory FELICIA L FLORO Not Available Start: 05-04-2024 End: 05-04-2024 ambulatory TANIA GAMA Not Available Start: 04-13-2024 End: 04-13-2024 ambulatory FELICIA MANCINI Not Available Start: 04-06-2024 End: 04-06-2024 ambulatory TANIA GAMA Not Available Start: 02-18-2024 End: 02-18-2024 ambulatory FELICIA RITCHIEO Not Available Start: 11-06-2023 End: 11-06-2023 ambulatory FELICIA RITCHIEO Not Available Start: 10-21-2023 End: 10-21-2023 ambulatory ESTEFANI PALACIO Not Available Start: 09-29-2023 End: 09-29-2023 ambulatory Ramírez Bishop Facility:[facility] Start: 09-29-2023 End: 09-29-2023 ambulatory MD Tania Gama Work Phone: [facility] Work Phone: Start: 09-29-2023 End: 09-29-2023 Departed Referred MD Tania Gama Work Phone: [facility] [place] Work Phone: Start: 09-23-2023 End: 09-23-2023 ambulatory Felicia Carly Mancini Facility:[facility] Start: 09-23-2023 End: 09-23-2023 Departed Referred MD Tania Gama Work Phone: [facility] [place] Work Phone: Start: 02-27-2023 End: 02-28-[address] TANIA GAMA Facility:[facility] Start: 04-28-2022 End: 04-29-2022 ambulatory LAKISHA HAWKINS Facility:[facility] Start: 08-22-2021 (URG) Urgent Care Visit [facility] Start: 03-05-2018 End: 03-08-2018 [facility] Start: 12-23-2017 End: 12-25-2017 Evaluation and management of inpatient ISMAEL M LINDA [facility] Start: 12-19-2017 End: 12-20-2017 Ambulatory RM AGRAWAL [facility] Start: 11-27-2017 End: 11-28-2017 Ambulatory ROSELYN CASTRO [facility] Start: 11-27-2017 End: 11-27-2017 Ambulatory ROSELYN CASTRO [facility] Start: 11-27-2017 End: 11-27-2017 Ambulatory ROSELYN CASTRO [facility] Start: 10-31-2017 End: 11-01-2017 Ambulatory Shanique Simon [place] Date Procedure Procedure Detail Performing Clinician Start: 05-04-2024 History of appendectomy History of appendectomy Kurtis Scott CONTROL AREA OPERATOR Work Phone: Start: 03-05-2018 Kidney img morphology vascular flow 1 w/rx ROSELYN CASTRO Start: 03-05-2018 Us retroperitoneal real time w/image complete ROSELYN CASTRO Start: 12-25-2017 DISCHARGE PATIENT ROSELYN CASTRO Start: 12-25-2017 INITIATE OXYGEN THERAPY PROTOCOL ROSELYN CASTRO Start: 12-24-2017 CREATININE, BODY FLUID ROSELYN CASTRO Start: 12-24-2017 INITIATE OXYGEN THERAPY PROTOCOL ROSELYN CASTRO Start: 12-24-2017 CATHETER REMOVAL ROSELYN CASTRO Start: 12-24-2017 DIET PEDS GENERAL ROSELYN CASTRO Start: 12-24-2017 BASIC METABOLIC PANEL W/ REFLEX TO MG FOR LOW K ROSELYN CASTRO Start: 12-24-2017 CBC ROSELYN CASTRO Start: 12-24-2017 Radiologic exam abdomen 1 view ROSELYN CASTRO Start: 12-23-2017 AMBULATE PATIENT ROSELYN CASTRO Start: 12-23-2017 DRAIN CARE ROSELYN CASTRO Start: 12-23-2017 FULL CODE ROSELYN CASTRO Start: 12-23-2017 INITIATE OXYGEN THERAPY PROTOCOL ROSELYN CASTRO Start: 12-23-2017 NURSING COMMUNICATION ROSELYN CASTRO Start: 12-23-2017 PLACE INTERMITTENT PNEUMATIC COMPRESSION DEVICE ROSELYN CASTRO Start: 12-23-2017 VITAL SIGNS ROSELYN CASTRO Start: 12-23-2017 BASIC METABOLIC PANEL W/ REFLEX TO MG FOR LOW K ROSELYN CASTRO Start: 12-23-2017 CBC ROSELYN CASTRO Start: 12-23-2017 PATIENT STATUS (FROM ED OR OR/PROCEDURAL) ROSELYN CASTRO Start: 12-23-2017 TRANSFER PATIENT ROSELYN CASTRO Start: 12-23-2017 URINE CULTURE ROSELYN CASTRO Start: 12-23-2017 X-ray urinary tract exam with contrast material ROSELYN CASTRO Start: 12-23-2017 POCT URINE ROSELYN CASTRO Start: 12-19-2017 BUN AND CREATININE ROSELYN CASTRO Start: 12-19-2017 ELECTROLYTE PANEL ROSELYN CASTRO Start: 12-19-2017 HEMOGLOBIN AND HEMATOCRIT, BLOOD ROSELYN CASTRO Start: 12-19-2017 TYPE AND SCREEN ROSELYN CASTRO Start: 12-19-2017 URINE CULTURE ROSELYN CASTRO Start: 11-27-2017 Urethrocystography voiding rs&i ROSELYN CASTRO Start: 11-27-2017 Kidney img morphology vascular flow 1 w/rx ROSELYN CASTRO Start: 11-27-2017 CULTURE, URINE CATHETER ROSELYN LOPEZ I Start: 11-27-2017 Continuous pulse oximetry ROSELYN OLIVEIRA Start: 11-27-2017 ADVANCE DIET TOLERATED (NURSING COMMUNICATION) ROSELYN CASTRO Start: 11-27-2017 CARDIAC MONITORING ROSELYN CASTRO Start: 11-27-2017 DIET NPO, NOW ROSELYN CASTRO Start: 11-27-2017 MEASURE WEIGHT ROSELYN CASTRO Start: 11-27-2017 MISCELLANEOUS NURSING CARE ORDER (SPECIFY) ROSELYN CASTRO Start: 11-27-2017 NOTIFY PHYSICIAN (SPECIFY) ROSELYN SO ECKI Start: 11-27-2017 PEDIATRIC LOW FLOW NASAL CANNULA ROSELYN CASTRO Start: 11-27-2017 VITAL SIGNS ROSELYN CASTRO Start: 11-27-2017 SALINE LOCK IV ROSELYN CASTRO Plan of Treatment Date Care Activity Detail Author Start: 05-19-2025 End: 05-19-2025 Patient encounter procedure 05/19/2025 11:00 AM EDT Office Visit [facility] [address] [place] [address] Felicia Mancini CNM [address] [place], [place] [id number] [facility] Start: 10-19-2024 End: 10-19-2024 Patient encounter procedure 10/19/2024 9:00 AM EST Office Visit [facility] [address] [place] [address] Tania Gama MD [address] [place], [place] [id number] [facility] Start: 07-25-2024 Influenza vaccination Influenza Vacc ine (#1) [facility] Immunizations Immunization Date Immunization Notes Care Provider [facility] 07-16-2019 meningococcal polysaccharide (groups A, C, Y and W-135) diphtheria toxoid conjugate vaccine (MCV4P) Kurtis Scott CONTROL AREA OPERATOR Work Phone: [facility] 07-26-2014 tetanus toxoid, redu uche diphtheria toxoid, and acellular pertussis vaccine, adsorbed Kurtis Sonia CONTROL AREA OPERATOR Work Phone: [facility] 07-26-2014 varicella virus vaccine Patr deepa Scott CONTROL AREA OPERATOR Work Phone: [facility] 09-21-2013 influenza, seasonal, injectable, preservative free Kurtis Scott CONTROL AREA OPERATOR Work Phone: [facility] 09-21-2013 influenza virus vacc ine, unspecified formulation Kurtis Scott CONTROL AREA OPERATOR Work Phone: [facility] 08-12-2007 diphtheria, tetanus toxoids and acellular pertussis vaccine Kurtis Scott CONTROL AREA OPERATOR Work Phone: [facility] 08-12-2007 measles, mumps and rubella virus vaccine Kurtisivana Scott CONTROL AREA OPERATOR Work Phone: [facility] 08-12-2007 poliovirus vaccine, inactivated Kurtis Scott CONTROL AREA OPERATOR Work Phone: [facility] 02-07-2004 diphtheria, tetanus toxoids and acellular pertussis vaccine Kurtis Scott CONTROL AREA OPERATOR Work Phone: [facility] 02-07-2004 haemophilus influenz ae type b vaccine, PRP-T conjugate Kurtis Scott CONTROL AREA OPERATOR Work Phone: [facility] 02-07-2004 pneumococcal conjuga te vaccine, 7 valent Kurtis Scott CONTROL AREA OPERATOR Work Phone: [facility] 07-14-2002 measles, mumps and rubella virus vaccine Kurtis Scott CONTROL AREA OPERATOR Work Phone: [facility] 07-14-2002 varicella virus vaccine Patr deepa Scott CONTROL AREA OPERATOR Work Phone: [facility] 01-13-2002 diphtheria, tetanus toxoids and acellular pertussis vaccine, unspecified formulation Kurtis Scott CONTROL AREA OPERATOR Work Phone: [facility] 01-13-2002 haemophilus influenz ae type b vaccine, conjugate unspecified formulation Kurtis Scott CONTROL AREA OPERATOR Work Phone: [facility] 01-13-2002 hepatitis B vaccine, pediatric or pediatric/adolescent dosage Kurtis Scott CONTROL AREA OPERATOR Work Phone: [facility] 01-13-2002 pneumococcal conjuga te vaccine, 7 valent Kurtis Sonia CONTROL AREA OPERATOR Work Phone: [facility] 01-13-2002 poliovirus vaccine, inactivated Kurtis Sctot CONTROL AREA OPERATOR Work Phone: [facility] 2001 diphtheria, tetanus toxoids and acellular pertussis vaccine, unspecified formulation Kurtis Scott CONTROL AREA OPERATOR Work Phone: [facility] 2001 haemophilus influenz ae type b conjugate and Hepatitis B vaccine Kurtis Sonia CONTROL AREA OPERATOR Work Phone: [facility] 2001 pneumococcal conjuga te vaccine, 7 valent Kurtis Sonia CONTROL AREA OPERATOR Work Phone: [facility] 2001 poliovirus vaccine, inactivated Kurtis Sonia CONTROL AREA OPERATOR Work Phone: [facility] 2001 diphtheria, tetanus toxoids and acellular pertussis vaccine, unspecified formulation Kurtis Sonia CONTROL AREA OPERATOR Work Phone: [facility] 2001 haemophilus influenz ae type b conjugate and Hepatitis B vaccine Kurtis Sonia CONTROL AREA OPERATOR Work Phone: [facility] 2001 poliovirus vaccine, inactivated Kurtis Sonia CONTROL AREA OPERATOR Work Phone: [facility] Payers Date Payer Category Payer Self-pay [id number] 2023 Unknown [id number] 2022 Private Health Insurance [id number] 2017 Unknown 2016 Unknown [id number] 2001 Unknown [id number] 2.16.84 0.1.792111.3.579.2.593 2001 Unknown [id number] 2.16.84 0.1.224323.3.579.2.593 2001 Unknown [id number] 2.16.840.1.293084.3.579.2.1286 2001 Unknown [id number] 2.16.840.1.613488.3.579.2.1286 2001 Unknown [id number] 2.16.84 0.1.036851.3.579.2.9 2001 Unknown [id number] 2.16.84 0.1.575962.3.579.2.9 2001 Unknown [id number] 2.16.84 0.1.267980.3.579.2.1258 2001 Unknown [id number] 2.16.84 0.1.727102.3.579.2.1258 2001 Unknown [id number] 2.16.84 0.1.876885.3.579.2.1258 2001 Unknown [id number] 2.16.84 0.1.686545.3.579.2.1258 2001 Unknown [id number] 2.16.84 0.1.022799.3.579.2.1258 2001 Unknown [id number] 2.16.84 0.1.022689.3.579.2.1258 2001 Unknown [id number] 2.16.84 0.1.361743.3.579.2.1258 2001 Unknown [id number] 2.16.840 .1.183521.3.579.2.1258 2001 Unknown [id number] 2.16.840 .1.566819.3.579.2.9 1959 Private Health Insurance [id number] 1959 Unknown [id number] 2.1 6.840.1.320009.19 1959 Unknown [id number] 1959 Unknown [id number] Medicaid [employer] [id number] Unknown [id number] 2.16.8 40.1.781960.3.579.2.531 Unknown [id number] 2.16.8 40.1.749730.3.579.2.531 Social History Date Type Detail Facility Unknown if ever smoked [employer] Other Start: 11-06-2023 End: 10-12-2024 Sex Assigned At [employer] Other Start: 2001 Sex Assigned At Female F [facility] Start: 11-06-2023 Tobacco smoking stat us NHIS Never smoked tobacco [facility] Start: 11-06-2023 Tobacco use and exposure Smokeless tobacco non-user [facility] Start: 10-12-2024 Alcoholic beverage intake Ex-drinker (finding) [facility] Start: 11-06-2023 End: 10-12-2024 History of Social function [facility] The thought of jagruti somers myself has occurred to me Never [facility] Start: 10-12-2024 Alcohol Comment caffeine: 4 cu ps/day coffee [facility] Start: 2001 Sex assigned at Not on file [facility] Start: 02-05-2023 Gender identity Identifies as female gender (finding) [facility] Goals Date Patient Goal Desired Activity /State Personal health goal History of Present illness Narrative 10-12-2024 Kurtis Scott NP - 10/12/2024 1:00 PM EST Note Date & Type Note Facility 10-12-2024 History of Presen t illness Narrative Images from the original note were not included. Liana Kelsey is a 24 y.o. female presents with chief complaint of Follow-up HPI: Patient is here for a ER follow up on right shoulder pain. Patient is in constant pain that goes from the shoulder to the elbow. Patient has been taking tylenol, lidocaine patches, and etodolac. Flowsheet Row Office Visit from 10/12/2024 in [facility] with Kurtis Scott NP Hospital Information ED, Hospital or Senior Living Facility Discharge? ED Patient has been contacted within 1 week of being seen in the ED Yes Diagnosis Rotator Cuff Injury Discharge Date 10/11/24 Discharged To: Home Setting Discharge Hospital [facility] Admission Date 10/11/24 Medications Discharge medications reviewed and reconciled from hospital? Yes Is the patient having any side effects they believe may be caused by any medication additions or changes? No Does the patient have all medications ordered at discharge? Yes Appointments Self Management Patient Teaching Does the patient have access to their discharge instructions? Yes What is the patient's perception of their health status since discharge? Same Wrap Up History of Present Illness The patient presents for evaluation of right shoulder pain. She reports severe pain in her right shoulder, which began after an incident where she rolled off the bed to attend to her baby. The pain was so intense that it caused her to vomit twice. An x-ray was performed, which did not reveal any abnormalities. She was diagnosed with a rotator cuff issue and was prescribed Toradol, which unfortunately did not alleviate her pain. She received a Toradol injection, which provided temporary relief for about 2 hours. Currently, she is using a sling, taking Tylenol, and applying a patch for pain management. Despite these measures, she continues to experience severe pain, which at times is so intense that it brings her to tears. She has attempted to use ice for relief, but this seems to exacerbate the pain. She has some mobility in her shoulder, but movement is painful. The pain is most severe in her shoulder, but it radiates to her elbow and up to her neck. The pain is particularly intense at night, disrupting her sleep. She typically avoids pain medications that are processed through the kidneys, preferring those that are metabolized by the liver. She is not currently . She has a follow-up appointment scheduled for Friday. SUBJECTIVE: MEDICATIONS: ALLERGIES Current Outpatient Medications Medication Instructions cyclobenzaprine (FLEXERIL) 10 mg, Oral, 3 times daily PRN EPINEPHrine (EPIPEN) 0.3 mg, Injection, Once, use as directed for allergic reaction and then call 911 etodolac (LODINE) 400 mg, Every 8 hours PRN FLUoxetine (PROZAC) 10 mg, Oral, Daily metoprolol succinate XL (Toprol-XL) 50 MG 24 hr tablet NIFEdipine XL (PROCARDIA XL) 30 mg, Oral, Daily, Do not crush, chew, or split. norethindrone (MICRONOR) 0.35 mg, Oral, Daily predniSONE (DELTASONE) 20 mg, Oral, 2 times daily Allergies Allergen Reactions Beeswax Anaphylaxis Bee Venom Unknown Other Reaction(s): Unknown Labetalol Itching Other Wasp Venom Protein PAST MEDICAL HISTORY: SOCIAL HISTORY SURGICAL HISTORY: Past Medical History: Diagnosis Date Allergic to bees Asthma (CMS/[facility]) Enlarged kidney ETD (eustachian tube dysfunction) Fatigue GERD (gastroesophageal reflux disease) History of hydronephrosis History of medical problems injury to uvula History of medical treatment Right kidney repair, [place], [place] Dr. Agrawal; Dr. Geetha Newman urologist Hydronephrosis Other hammer toe(s) (acquired), left foot Other hammer toe(s) (acquired), right foot Pharyngitis, unspecified etiology Seasonal allergic rhinitis, unspecified trigger Social History Tobacco Use Smoking status: Never Smokeless tobacco: Never Substance Use Topics Alcohol use: Not Currently Comment: caffeine: 4 cups/day coffee Drug use: Never Past Surgical History: Procedure Laterality Date ADENOIDECTOMY 2007 APPENDECTOMY 2017 SECTION, LOW TRANSVERSE 09/26/2023 MYRINGOTOMY W/ TUBES Bilateral twice OTHER SURGICAL HISTORY 2017Dec 18; stent inserted into Right kidney. ureter was on top of kidney and had to be moved. REVIEW OF SYMPTOMS: Review of Systems All other systems reviewed and are negative. OBJECTIVE: Vitals: 10/12/24 1257 BP: 122/80 Pulse: 92 Temp: 97.2 F SpO2: 99% Physical Exam Vitals and nursing note reviewed. Constitutional: Appearance: Normal appearance. HENT: Head: Normocephalic and atraumatic. Right Ear: Tympanic membrane normal. Left Ear: Tympanic membrane normal. Nose: Nose normal. Eyes: Extraocular Movements: Extraocular movements intact. Conjunctiva/sclera: Conjunctivae normal. Pupils: Pupils are equal, round, and reactive to light. Cardiovascular: Rate and Rhythm: Normal rate and regular rhythm. Heart sounds: Normal heart sounds. Pulmonary: Effort: Pulmonary effort is normal. Breath sounds: Normal breath sounds. Musculoskeletal: Right shoulder: Tenderness present. Decreased range of motion. Cervical back: Normal range of motion and neck supple. Skin: General: Skin is warm and dry. Capillary Refill: Capillary refill takes less than 2 seconds. Neurological: Mental Status: She is alert and oriented to person, place, and time. ASSESSMENT AND PLAN: Assessment/Plan Diagnoses and all orders for this visit: Tendinopathy of right rotator cuff - predniSONE (Deltasone) 20 MG tablet; Take 1 tablet (20 mg) by mouth in the morning and 1 tablet (20 mg) before bedtime. Do all this for 5 days. Muscle spasm of right shoulder - cyclobenzaprine (Flexeril) 10 MG tablet; Take 1 tablet (10 mg) by mouth 3 (three) times a day as needed for muscle spasms for up to 5 days Stop toradol; start steroids and muscle relaxer as ordered. Continue to use sling, but take frequent breaks to stretch. Follow up in 1 week if no improvement. No follow-ups on file. documented in this encounter [facility] Progress note 07-30-2024 Note Date & Type Note Facility 07-30-2024 Note Cardiology Clinic No te Chief Complaint: New patient for palpitations, htn HPI: Liana Kelsey is a 24 y.o. female who has a past medical history of Hypertension. that is referred to Cardiology clinic for evaluation of hypertension and palpitations. She presents today for follow up having renal artery duplex done at [facility]. Pt says that she is not taking [...] as needed Andie Alba MD Interventional Cardiology [facility] Progress note 07-02-2024 Note Date & Type [...] or concerns. Andie Alba MD Interventional Cardiology [facility] Evaluation note 08-22-2021 Note Date & Type [...] Patient care instructions given in writting by [facility] document. [email or web address] Other Evaluation note Note Date & Type Note Facility Evaluation note [facility]: Evaluation note Note Date & Type Note Facility Evaluation note Diagnosis Tendinopathy of right rotator cuff- Primary Muscle spasm of right shoulder documented in this encounter [facility] History general Narrative - Reported Note Date & Type Note Facility History general Narrative - Reported Type Medical History hydronephrosis Medical History GERD Medical History ENLARGED KIDNEY Medical History kidney repair Surgical History tube in kidney Surgical History appendix removed Surgical History tubes in ears, twice Surgical History adnoids removed [email or web address] Other Summary Purpose Family History No Family [...] section and content) DATE CREATED AUTHOR 05/19/2018 [facility] DATE CREATED AUTHOR AUTHOR'S ORGANIZ ATION 05/20/2018 [facility] DATE CREATED AUTHOR AUTHOR'S ORGANIZ ATION 06/19/2019 [facility] DATE CREATED AUTHOR AUTHOR'S ORGANIZ ATION 03/07/2021 [employer] DATE CREATED AUTHOR AUTHOR'S ORGANIZ ATION 02/09/2022 [facility] DATE CREATED AUTHOR AUTHOR'S ORGANIZ ATION 03/03/2023 [facility] DATE CREATED AUTHOR AUTHOR'S ORGANIZ ATION 10/07/2023 [facility] DATE CREATED AUTHOR AUTHOR'S ORGANIZ ATION 07/24/2024 [facility] DATE CREATED AUTHOR AUTHOR'S ORGANIZ ATION 08/29/2024 [facility] DATE CREATED AUTHOR AUTHOR'S ORGANIZ ATION 10/15/2024 [facility] dical Specialists EPIC REASON FOR VISIT (unrecogniz ed section and content) Reason Comments Follow-up Care Teams (unrecognized sec tion and content) Team Status: Inactive Member Role Status Dates Felicia Mancini APRN Attending Provider Active Tania Gama MD Primary Care Provider Active Team Status: Inactive Member Role Status Dates Ramírez Alas Attending Provider Active Data Analyst Relationship Specialty Start Date End Date Tania Gama MD [address] [place] [address] PCP - General Family Medicine 05/21/23 Goals (unrecognized section and content) Goals may [...] BE BASED ON THE PRIMARY CLINICAL RECORDS. [employer] provides no warranty or guarantee of the accuracy or completeness of information in this document.
== END 2024-10-26 13:33 | disposition home or self-care (01) ==
LOC: CT 13:32
PROVIDERS: Family Provider Family Medicine; PCP Family Medicine; Visit Provider Internal Medicine Cardiovascular Disease
DX: R93.89 Abnormal findings on diagnostic imaging of other specified body structures (principal); N83.292 Other ovarian cyst, left side
CPT/HCPCS: 71275; 74174; Q9967

== ENCOUNTER 2025-07-21 19:32 | Emergency (ER) | payer OTHER, SELFPAY ==
[2025-07-21 19:37] VITALS: BP 147/79; PULSE 92; TEMP 36.9; O2SAT 100; BMI 30.3
--- OUTSIDE RECORDS SUMMARY | 2025-07-21 19:47 | XMS_ITS | CCD ---
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 #### [facility] [address] [address] [address] Karolyn Dubon Anion gap [Moles/Vol] 12.8 mmol/L Normal [facility] Comment on above: Performed By: #### C MP #### [facility] [address] [place] [address] Dr. Karolyn Dubon AST [Catalytic activity/Vol] 14 U/L Critically low 15-37 [facility] Comment on above: Performed By: #### C MP #### [facility] [address] [place] [address] Dr. Karolyn Dubon Bilirubin [Mass/Vol] 0.3 mg/dL Normal 0.2-1.0 [facility] Comment on above: Performed By: #### C MP #### [facility] [address] [place] [address] Dr. Karolyn Dubon Calcium [Mass/Vol] 8.9 mg/dL Normal 8.5-10.1 [facility] Comment on above: Performed By: #### C MP #### [facility] [address] [place] [address] Dr. Karolyn Dubon Chloride [Moles/Vol] 101 mmol/L Normal 98-107 [facility] Comment on above: Performed By: #### C MP #### [facility] [address] [address] [address] Karolyn Dubon CO2 [Moles/Vol] 27.4 mmol/L Normal 21.0-32.0 [facility] Comment on above: Performed By: #### C MP #### [facility] [address] [place] [address] Dr. Karolyn Dubon Creatinine [Mass/Vol] 0.61 mg/dL Normal 0.55-1.02 [facility] Comment on above: Performed By: #### C MP #### [facility] [address] [place] [address] Dr. Karolyn Dubon EGFR-AF INDIAN >60 Normal >=60 [facility] Comment on above: Performed By: #### C MP #### [facility] [address] [address] [address] Karolyn Dubon EGFR-NON AF INDIAN >60 Normal >=60 [facility] Comment on above: Performed By: #### C MP #### [facility] [address] [place] [address] Dr. Karolyn Dubon Globulin (S) [Mass/Vol] 3.7 g/dL Normal [facility] Comment on above: Performed By: #### C MP #### [facility] [address] [place] [address] Dr. Karolyn Dubon Glucose [Mass/Vol] 129 mg/dL Critically high 74-106 [facility] Comment on above: Performed By: #### C MP #### [facility] [address] [place] [address] Dr. Karolyn Dubon Potassium [Moles/Vol] 3.2 mmol/L Critically low 3.5-5.1 [facility] Comment on above: Performed By: #### C MP #### [facility] [address] [place] [address] Dr. Karolyn Dubon Protein [Mass/Vol] 7.4 g/dL Normal 6.4-8.2 [facility] Comment on above: Performed By: #### C MP #### [facility] [address] [place] [address] Dr. Karolyn Dubon Sodium [Moles/Vol] 138 mmol/L Normal 136-145 [facility] Comment on above: Performed By: #### C MP #### [facility] [address] [place] [address] Dr. Karolyn Dubon Urea nitrogen [Mass/Vol] 11.0 mg/dL Normal 7.0-18.0 [facility] Comment on above: Performed By: #### C MP #### [facility] [address] [place], [place] [address] Dr. Karolyn Dubon Urea nitrogen/Creatinine [Mass ratio] 18.0 mg/mg Normal [facility] Comment on above: Performed By: #### C MP #### [facility] [address] [place], [place] [address] Dr. Karolyn Dubon US PREG TVon 02-27-2023 [...] by: DARLIN GAMBINO Date: 2023-02-27 21:[address] [facility] XR FOOT LT MIN 3 VIEWSon XR FOOT LT MIN 3 VIEWS EXAM: XR FOOT LT MIN 3 VIEWS HISTORY: Foot pain COMPARISON: None. TECHNIQUE: 3 views FINDINGS: No osseous lesion, fracture, dislocation or subluxation. Joint spaces are normal. No visualized effusion. No visualized soft tissue edema. IMPRESSION: Normal x-rays Electronically authenticated by: XUAN SPRAGUE Date: 2022-04-28 22:53 Normal [facility] Complete Blood Count with Au to Diffon 02-08-2022 Basophils (Bld) [#/Vol] 0.04 10*3/uL Normal 0.00-0.20 [employer] [place] [facility] Comment on above: Performed By: #### T SH reflex FT4, CMP, CBCAD #### [facility] [address] [place], [place] [id number] Basophils/100 WBC (Bld) 0.7 % Normal [facility] Comment on above: Performed By: #### T SH reflex FT4, CMP, CBCAD #### [facility] [address], [place] [id number] Eosinophils (Bld) [#/Vol] 0.06 10*3/uL Normal 0.02-0.50 [facility] Comment on above: Performed By: #### T SH reflex FT4, CMP, CBCAD #### [facility] [address], [place] [id number] Eosinophils/100 WBC (Bld) 1.1 % Normal [facility] Comment on above: Performed By: #### T SH reflex FT4, CMP, CBCAD #### [facility] [address], [place] [id number] Erythrocyte distribution width (RBC) [Ratio] 11.9 % Normal 11.0-15.0 [facility] Comment on above: Performed By: #### T SH reflex FT4, CMP, CBCAD #### [facility] [address], [place] [id number] Hematocrit (Bld) [Volume fraction] 42.2 % Normal 35.0-47.0 [facility] Comment on above: Performed By: #### T SH reflex FT4, CMP, CBCAD #### [facility] [address] [place], [place] [id number] Hemoglobin (Bld) [Mass/Vol] 14.4 g/dL Normal 11.6-15.5 [facility] Comment on above: Performed By: #### T SH reflex FT4, CMP, CBCAD #### [facility] [address] [place], [place] [id number] Lymphocytes (Bld) [#/Vol] 2.1 10*3/uL Normal 0.9-3.9 [facility] Comment on above: Performed By: #### T SH reflex FT4, CMP, CBCAD #### [facility] [address] [place], [place] [id number] Lymphocytes/100 WBC (Bld) 38.5 % Normal [facility] Comment on above: Performed By: #### T SH reflex FT4, CMP, CBCAD #### [facility] [address] [place], [place] [id number] MCH (RBC) [Entitic mass] 30.1 pg Normal 27.0-33.0 [facility] Comment on above: Performed By: #### T SH reflex FT4, CMP, CBCAD #### [facility] [address], [place] [id number] MCHC (RBC) [Mass/Vol] 34.1 g/dL Normal 32.0-36.0 [facility] Comment on above: Performed By: #### T SH reflex FT4, CMP, CBCAD #### [facility] [address] [place], [place] [id number] MCV (RBC) [Entitic vol] 88 fL Normal 80-100 [facility] Comment on above: Performed By: #### T SH reflex FT4, CMP, CBCAD #### [facility] [address] [place], [place] [id number] Monocytes (Bld) [#/Vol] 0.4 10*3/uL Normal 0.2-0.9 [facility] Comment on above: Performed By: #### T SH reflex FT4, CMP, CBCAD #### [facility] [address], [place] [id number] Monocytes/100 WBC (Bld) 6.5 % Normal [facility] Comment on above: Performed By: #### T SH reflex FT4, CMP, CBCAD #### [facility] [address], [place] [id number] Neutrophils (Bld) [#/Vol] 2.9 10*3/uL Normal 1.5-7.8 [facility] Comment on above: Performed By: #### T SH reflex FT4, CMP, CBCAD #### [facility] [address], [place] [id number] Neutrophils/100 WBC (Bld) 53.0 % Normal [facility] Comment on above: Performed By: #### T SH reflex FT4, CMP, CBCAD #### [facility] [address], [place] [id number] Platelet mean volume (Bld) [Entitic vol] 10.40 fL Normal 7.50-12.50 [facility] Publication [facility] Comment on above: Performed By: #### T SH reflex FT4, CMP, CBCAD #### [facility] [address] [place], [place] [id number] Platelets (Bld) [#/Vol] 318 10*3/uL Normal 140-400 [facility] Comment on above: Performed By: #### T SH reflex FT4, CMP, CBCAD #### [facility] [address], [place] [id number] RBC (Bld) [#/Vol] 4.78 10*6/uL Normal 3.90-5.20 [facility] Comment on above: Performed By: #### T SH reflex FT4, CMP, CBCAD #### [facility] [address], [place] [id number] RDW-SD 38.5 fL Normal 37.0-50.0 [facility] Comment on above: Performed By: #### T SH reflex FT4, CMP, CBCAD #### [facility] [address], [place] [id number] WBC (Bld) [#/Vol] 5.5 10*3/uL Normal 3.8-11.0 [facility] Comment on above: Performed By: #### T SH reflex FT4, CMP, CBCAD #### [facility] [address], [place] [id number] Comprehensive Metabolic [facility] 02-08-2022 Albumin [Mass/Vol] 4.5 g/dL Normal 3.6-5.1 [facility] [place] [facility] Comment on above: Performed By: #### T SH reflex FT4, CMP, CBCAD #### [facility] [address], [place] [id number] Albumin/Globulin [Mass ratio] 1.9 {ratio} Normal 1.0-2.5 [facility] Comment on above: Performed By: #### T SH reflex FT4, CMP, CBCAD #### [facility] [address] [facility] [place] [id number] ALP [Catalytic activity/Vol] 45 U/L Normal 35-119 [facility] Comment on above: Performed By: #### T SH reflex FT4, CMP, CBCAD #### [facility] [address], [place] [id number] ALT [Catalytic activity/Vol] 17 U/L Normal 6-33 [facility] Comment on above: Result Comment: 10/24 Female reference range changed. Performed By: #### T SH reflex FT4, CMP, CBCAD #### [facility] [address], [place] [id number] Anion gap [Moles/Vol] 18 mmol/L Normal 12-20 [facility] Comment on above: Result Comment: Effe ctive 11/29/2019 reference range changed. Performed By: #### T SH reflex FT4, CMP, CBCAD #### [facility] [address], [place] [id number] AST [Catalytic activity/Vol] 19 U/L Normal 9-34 [facility] Comment on above: Performed By: #### T SH reflex FT4, CMP, CBCAD #### [facility] [address], [place] [id number] Bilirubin [Mass/Vol] 0.31 mg/dL Normal 0.30-1.20 [facility] Comment on above: Performed By: #### T SH reflex FT4, CMP, CBCAD #### [facility] [address], [place] [id number] BUN/CREA 17 Ratio Normal 6-22 [facility] Comment on above: Performed By: #### T SH reflex FT4, CMP, CBCAD #### [facility] [address] [facility] [place] [id number] Calcium [Mass/Vol] 9.4 mg/dL Normal 8.6-10.2 [facility] Comment on above: Performed By: #### T SH reflex FT4, CMP, CBCAD #### [facility] [address] [facility] [place] [id number] Chloride [Moles/Vol] 103 mmol/L Normal 98-107 [facility] Comment on above: Performed By: #### T SH reflex FT4, CMP, CBCAD #### [facility] [address], [place] [id number] CO2 [Moles/Vol] 23 mmol/L Normal 20-31 [facility] Comment on above: Performed By: #### T SH reflex FT4, CMP, CBCAD #### [facility] [address], [place] [id number] Creatinine [Mass/Vol] 0.8 mg/dL Normal 0.6-1.4 [facility] Comment on above: Performed By: #### T SH reflex FT4, CMP, CBCAD #### [facility] [address] [place], [place] [id number] eGFRAA 119 mL/min/1.73m2 Normal >60 [facility] Comment on above: Performed By: #### T SH reflex FT4, CMP, CBCAD #### [facility] [address], [place] [id number] eGFRNAA 99 mL/min/1.73m2 Normal >60 [facility] Comment on above: Performed By: #### T SH reflex FT4, CMP, CBCAD #### [facility] [address] [place], [place] [id number] Globulin (S) [Mass/Vol] 2.4 g/dL Normal 1.9-3.7 [facility] Comment on above: Performed By: #### T SH reflex FT4, CMP, CBCAD #### [facility] [address] [place], [place] [id number] Glucose [Mass/Vol] 92 mg/dL Normal 65-99 [facility] Comment on above: Result Comment: For FASTING Glucose --- ADA reference ranges: Normal 65-99 mg/dl Prediabetes 100-125 Diabetes >/= 126 Performed By: #### T SH reflex FT4, CMP, CBCAD #### [facility] [address] [place], [place] [id number] Potassium [Moles/Vol] 4.3 mmol/L Normal 3.5-5.5 [facility] Comment on above: Performed By: #### T SH reflex FT4, CMP, CBCAD #### [facility] [address] [place], [place] [id number] Protein [Mass/Vol] 6.9 g/dL Normal 6.1-8.1 Antonio [facility] [place] [facility] Comment on above: Performed By: #### T SH reflex FT4, CMP, CBCAD #### [facility] [address] [place], [place] [id number] Sodium [Moles/Vol] 139 mmol/L Normal 135-146 Antonio [facility] [place] [facility] Comment on above: Performed By: #### T SH reflex FT4, CMP, CBCAD #### [facility] [address] [place], [place] [id number] Urea nitrogen [Mass/Vol] 13 mg/dL Normal 7-25 [facility] Publication Specialist Comment on above: Performed By: #### T SH reflex FT4, CMP, CBCAD #### [facility] [address] [place], [place] [id number] TSH w/ Reflex to Free T4on 0 02-08-2022 TSH 1.140 uIU/mL Normal 0.400-4.50 0 [facility] Publication Special[facility] Comment on above: Performed By: #### T SH reflex FT4, CMP, CBCAD #### [facility] [address] [place], [place] [id number] COVID Quick Testingon 2020 Result Negative [facility] [employer] Other Quick Strepon 08-22-2021 S. pyogenes Org specific cx Ql (Throat) Negative [facility] [employer] Other Quick Strep [facility] [employer] Other Initial Visit (Rheumatology) on 03-06-2021 Initial [...] consultation is requested by Dr. Kramer of [facility] for this 20 year old female. [...] or PIPs of the fingers. Fist and turner machine are good. 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 APC [...] Racheal Elena Date Saved: 06/16/2019 11:25 am [facility] Provider Orderson 06-16-2019 Provider Orders [id number] [facility] US Kidney/Bladder Completeon 06-15-2019 US Kidney/Bladder Complete [...] MD 06/15/19 8:18 pm Technologist: Angelic BUI [facility] Progress Noteon 05-20-2018 HIM IP Note OR Glass Grinder Normal [facility] NM KIDNEY W FLOW AND FUNCTIO N [...] the left and 51% on the right.Interpreted by:NELLY Chavisigned by:Reagan Berry MD03/05/18inal result Normal [facility] US RENAL COMPLETEon 03-05-20 18 US RENAL [...] by:Patel Chang Jr., DOSigned by:Patel Chang Jr., DO03/05/18inal result Normal [facility] FL RETROGRADE PYELOGRAM RIGH Ton 12-29-2017 FL RETROGRADE PYELOGRAM RIGHT Radiology exam is complete. No Radiologist dictation. Please follow up with ordering provider. Final result Normal [facility] Discharge Summaryon 12-25-19 18 HIM IP Note OR Glass Grinder Normal [facility] Plan of Careon 12-25-2017 HIM IP Note OR Glass Grinder Normal [facility] Progress Noteon 12-25-2017 HIM IP Note OR Glass Grinder Normal [facility] XR ABDOMEN (KUB) (SINGLE AP VIEW)on 12-25-2017 [...] ureteral stent present without adverse features evident.Interpreted by:Rafa Nunes MDSigned by:Rafa Nunes MD12/24/17inal result Normal [facility] Basic Metab w/rfx MGon 12-24 (cont.) Normal [facility] Comment on above: Result Comment: Aver age GFR for <20 years old not available.Chronic Kidney Disease: <60 mL/min/1.73sq mKidney failure: <15 mL/min/1.73sq meGFR calculated using average adult body mass. Additional eGFR calculator available at:http://www.[employer]/multiple_crcl_2012.htmKaiser P[facility] [address] [place] [address] Performed By: #### C BC, BMPX ####[facility] [address] [place] [address] Anion gap 15 mmol/L Normal 9-17 [facility] Comment on above: Performed By: #### C BC, BMPX ####[facility] HospitalCahootsy LimitedWgwiljmurrwk[address] [place] [address] Calcium 7.9 mg/dL Low 8.4-10.2 [facility] Comment on above: Performed By: #### C BC, BMPX ####[facility] HospitalCahootsy LimitedXngjhgfxumry87[address] [place] [address] Chloride 103 mmol/L Normal 98-107 [facility] Comment on above: Performed By: #### C BC, BMPX ####[facility] HospitalCahootsy LimitedHltldwwibqht[address] [place] [address] CO2 19 mmol/L Low 20-31 [facility] Comment on above: Performed By: #### C BC, BMPX ####[facility] HospitalCahootsy LimitedJdcpllzncbvc[address] [place] [address] Creatinine 0.67 mg/dL Normal 0.50-0.90 [facility] Comment on above: Performed By: #### C BC, BMPX ####[facility] HospitalCahootsy LimitedCxxjnxfvynch[address] [place] [address] eGFR (non-black) Pediatric GFR requir es additional information. Refer to NKDEP website for Normal >60 [facility] Comment on above: Result Comment: calc ulator. Performed By: #### C BC, BMPX ####[address] [place] [address] Glucose mass conc 128 mg/dL High 60-100 [facility] Comment on above: Performed By: #### C BC, BMPX ####[address] [address] Potassium molar conc 4.3 mmol/L Normal 3.6-4.9 [facility] Comment on above: Performed By: #### C DARRIUS, BMPX ####[address] [address] Sodium 137 mmol/L Normal 135-144 [facility] Comment on above: Performed By: #### C DARRIUS, BMPX ####[address] [address] Urea nitrogen 9 mg/dL Normal 5-18 [facility] Comment on above: Performed By: #### C DARRIUS, BMPX ####[address] [address] BUN/CRE Ratio NOT REPORTED Normal 9-20 [facility] Comment on above: Performed By: #### C BC, BMPX ####[address] [address] eGFR (non-black) NOT REPORTED Normal >60 [facility] Comment on above: Performed By: #### C BC, BMPX ####[address] [address] Staging: NOT REPORTED Normal [facility] Comment on above: Performed By: #### C BC, BMPX ####[address] [address] CBCon 12-24-2017 Erythrocyte distribution width Auto Ratio (RBC) 12.4 % Normal 11.8-14.4 [facility] Comment on above: Performed By: #### C BC, BMPX ####[address] [address] Erythrocytes (RBC) 0.0 per 100 WBC Normal 0.0 [facility] Comment on above: Result Comment: [facility] [address] [place] [address] Performed By: #### C DARRIUS, BMPX ####[address] [address] Erythrocytes (RBC) 3.87 10*6/uL Low 3.95-5.11 [facility] Comment on above: Performed By: #### C DARRIUS, BMPX ####[address] [address] Hematocrit (HCT) 34.3 % Low 36.3-47.1 [facility] Comment on above: Performed By: #### C DARRIUS, BMPX ####[address] [address] Hemoglobin mass conc (Bld) 11.6 g/dL Low 11.9-15.1 [facility] Comment on above: Performed By: #### C BC, BMPX ####[address] [address] MCH 30.0 pg Normal 25.0-35.0 [facility] Comment on above: Performed By: #### C BC, BMPX ####[address] [address] MCHC mass conc (RBC) 33.8 g/dL Normal 28.4-34.8 [facility] Comment on above: Performed By: #### C BC, BMPX ####[address] [place] [address] MCV 88.6 fL Normal 78.0-102.0 [facility] Comment on above: Performed By: #### C BC, BMPX ####[address] [place] [address] Platelet mean volume (PMV) 10.5 fL Normal 8.1-13.5 [facility] Comment on above: Performed By: #### C BC, BMPX ####[facility] K[address] [place] [address] Platelets 217 10*3/uL Normal 138-453 [facility] Comment on above: Performed By: #### C BC, BMPX ####[address] [address] WBC (Leukocytes) 12.6 10*3/uL Normal 4.5-13.5 [facility] Comment on above: Performed By: #### C BC, BMPX ####[facility] Hospitaljaycee BenavidesGilkrritluds[address] [place] [address] Creatinine,Fluidon 8 Creatinine 0.7 mg/dL Normal [facility] Comment on above: Result Comment: Ther e are no normals for body fluid samples.[address] [address] Performed By: #### F LCRE ####[address] [address] Type of Specimen MAYKEL FLUID Normal [facility] Comment on above: Performed By: #### F LCRE ####[address] [address] Cult,Urineon 12-24-2017 Cult,Urine Specimen Description .CATHETERIZED URINE Special Requests FIRST INSERTION Culture NO GROWTH Report Status FINAL 12/24/2017 Normal [facility] Comment on above: Performed By: #### U RC ####[facility] [address] [place] [address] Plan of Careon 12-24-2017 HIM IP Note OR Glass Grinder Normal [facility] HIM IP Note OR Glass Grinder Normal [facility] Progress Noteon 12-24-2017 HIM IP Note OR Glass Grinder Normal [facility] HIM IP Note OR Glass Grinder Normal [facility] Basic Metab w/rfx MGon 12-23 (cont.) Normal [facility] Comment on above: Result Comment: Aver age GFR for <20 years old not available.Chronic Kidney Disease: <60 mL/min/1.73sq mKidney failure: <15 mL/min/1.73sq meGFR calculated using average adult body mass. Additional eGFR calculator available at:http://www.[employer]/multiple_crcl_2012.htmHolzer Hospital [facility] [address] [place] [address] Performed By: #### C BC, BMPX ####[facility] HospitalCahootsy LimitedBymjskkxuxfg8184 [place] [address] Anion gap 14 mmol/L Normal 9-17 [facility] Comment on above: Performed By: #### C BC, BMPX ####[facility] HospitalCahootsy LimitedKmczbypfelfr3935 [place] [address] Calcium 7.9 mg/dL Low 8.4-10.2 [facility] Comment on above: Performed By: #### C BC, BMPX ####[facility] HospitalThe [facility] Company [address]qvquvox[address]68 [place] [address] Chloride 102 mmol/L Normal 98-107 [facility] Comment on above: Performed By: #### C BC, BMPX ####[facility] HospitalThe [facility] Company [address]bggrtsi6422 [place] [address] CO2 21 mmol/L Normal 20-31 [facility] Comment on above: Performed By: #### C BC, BMPX ####[facility] [address] [place] [address] Creatinine 0.87 mg/dL Normal 0.50-0.90 [facility] Comment on above: Performed By: #### C BC, BMPX ####[facility] [address] [place] [address] eGFR (non-black) Pediatric GFR requir es additional information. Refer to NKDEP website for Normal >60 [facility] Comment on above: Result Comment: calc ulator. Performed By: #### C BC, BMPX ####[facility] [address]vxox[address]9913 [place] [address] Glucose mass conc 154 mg/dL High 60-100 [facility] Comment on above: Performed By: #### C BC, BMPX ####[address] [place] [address] Potassium molar conc 4.0 mmol/L Normal 3.6-4.9 [facility] Comment on above: Performed By: #### C BC, BMPX ####[facility] [address] [place] [address] Sodium 137 mmol/L Normal 135-144 [facility] Comment on above: Performed By: #### C BC, BMPX ####[facility] [address] [place] [address] Urea nitrogen 10 mg/dL Normal 5-18 [facility] Comment on above: Performed By: #### C BC, BMPX ####[facility] [address]fh[address] [place] [address] BUN/CRE Ratio NOT REPORTED Normal 9-20 [facility] Comment on above: Performed By: #### C BC, BMPX ####[facility] [address]lymbj[address]wt230[address] [place] [address] eGFR (non-black) NOT REPORTED Normal >60 [facility] Comment on above: Performed By: #### C BC, BMPX ####[address] [place] [address] Staging: NOT REPORTED Normal [facility] Comment on above: Performed By: #### C BC, BMPX ####[facility] X[address]wp[address]azq4472 [place] [address] CBCon 12-23-2017 Erythrocyte distribution width Auto Ratio (RBC) 12.1 % Normal 11.8-14.4 [facility] Comment on above: Performed By: #### C BC, BMPX ####[address] [address] Erythrocytes (RBC) 4.43 10*6/uL Normal 3.95-5.11 [facility] Comment on above: Performed By: #### C BC, BMPX ####[address] [address] Erythrocytes (RBC) 0.0 per 100 WBC Normal 0.0 [facility] Comment on above: Result Comment: [facility] [address] [place] [address] Performed By: #### C BC, BMPX ####[facility] [place] [address] Hematocrit (HCT) 39.5 % Normal 36.3-47.1 [facility] Comment on above: Performed By: #### C BC, BMPX ####[facility] [place] [address] Hemoglobin mass conc (Bld) 13.4 g/dL Normal 11.9-15.1 [facility] Comment on above: Performed By: #### C BC, BMPX ####[facility] [place] [address] MCH 30.2 pg Normal 25.0-35.0 [facility] Comment on above: Performed By: #### C BC, BMPX ####[facility] [address]fw[address]rute4971 [place] [address] MCHC mass conc (RBC) 33.9 g/dL Normal 28.4-34.8 [facility] Comment on above: Performed By: #### C BC, BMPX ####[facility] [address] [place] [address] MCV 89.2 fL Normal 78.0-102.0 [facility] Comment on above: Performed By: #### C BC, BMPX ####[address] [place] [address] Platelet mean volume (PMV) 10.2 fL Normal 8.1-13.5 [facility] Comment on above: Performed By: #### C BC, BMPX ####[address] [address] Platelets 232 10*3/uL Normal 138-453 [facility] Comment on above: Performed By: #### C BC, BMPX ####[address] [address] WBC (Leukocytes) 11.8 10*3/uL Normal 4.5-13.5 [facility] Comment on above: Performed By: #### C BC, BMPX ####[facility] [place] [address] Interval History and Physion 12-23-2017 HIM IP Note OR Glass Grinder Normal [facility] Op Noteon 12-23-2017 HIM IP Note OR Glass Grinder Normal [facility] Cult,Urineon 12-20-2017 Cult,Urine Specimen Description .CLEAN CATCH URINE Special Requests NOT REPORTED Culture NO GROWTH Report Status FINAL 12/20/2017 Normal [facility] Comment on above: Performed By: #### U RC ####[address] [address] BUN + Creatinineon 8 (cont.) Normal [facility] Comment on above: Result Comment: Aver age GFR for <20 years old not available.Chronic Kidney Disease: <60 mL/min/1.73sq mKidney failure: <15 mL/min/1.73sq meGFR calculated using average adult body mass. Additional eGFR calculator available at:http://www.[employer]/multiple_crcl_2012.htmHolzer [facility] [address] [place] [address] Performed By: #### H H, BUNCRT, LYTE ####[employer] [place] [address] Creatinine 0.72 mg/dL Normal 0.50-0.90 [facility] Comment on above: Performed By: #### H H, BUNCRT, LYTE ####[facility] HospitalCahootsy LimitedSguzoqplojau3[address] [place] [address] eGFR (non-black) Pediatric GFR requir es additional information. Refer to NKDEP website for Normal >60 [facility] Comment on above: Result Comment: calc ulator. Performed By: #### H H, BUNCRT, LYTE ####[facility] HospitalThe [facility] Company [address] [address] Urea nitrogen 12 mg/dL Normal 5-18 [facility] Comment on above: Performed By: #### H H, BUNCRT, LYTE ####[employer] [address]12 [place] [address] eGFR (non-black) NOT REPORTED Normal >60 [facility] Comment on above: Performed By: #### H H, BUNCRT, LYTE ####[employer] [address]30 [place] [address] Staging: NOT REPORTED Normal [facility] Comment on above: Performed By: #### H H, BUNCRT, LYTE ####[facility] [address] [place] [address] Electrolyteson 12-19-2017 Anion gap 12 mmol/L Normal 9-17 [facility] Comment on above: Result Comment: [facility] [address] [place] [address] Performed By: #### H H, BUNCRT, LYTE ####[address] [address] Chloride 104 mmol/L Normal 98-107 [facility] Comment on above: Performed By: #### H H, BUNCRT, LYTE ####[address] [address] CO2 23 mmol/L Normal 20-31 [facility] Comment on above: Performed By: #### H H, BUNCRT, LYTE ####[facility] [address] [place] [address] Potassium molar conc 3.7 mmol/L Normal 3.6-4.9 [facility] Comment on above: Performed By: #### H H, BUNCRT, LYTE ####[facility] [address] [place] [address] Sodium 139 mmol/L Normal 135-144 [facility] Comment on above: Performed By: #### H H, BUNCRT, LYTE ####[facility] [address] [place] [address] Hgb/Hcton 12-19-2017 Hematocrit (HCT) 40.4 % Normal 36.3-47.1 [facility] Comment on above: Result Comment: [facility] [place] [address] Performed By: #### H H, BUNCRT, LYTE ####[facility] HospitalCahootsy LimitedKugldjruspll8[address] [place] [address] Hemoglobin mass conc (Bld) 13.3 g/dL Normal 11.9-15.1 [facility] Comment on above: Performed By: #### H H, BUNCRT, LYTE ####[facility] [address] [place] [address] History and Physicalon 12-19 HIM IP Note OR Glass Grinder Normal [facility] Type + Screenon 12-19-2017 Type + Screen Sample Expiration Arm Band Number [id number] ABO/Rh(D) O POSITIVE Antibody Screen NEGATIVE [address] [address] Normal [facility] Comment on above: Performed By: #### T YS ####[address] [address] Progress Noteon 12-08-2017 HIM IP Note OR Glass Grinder Normal [facility] Cult,Urine,Cathon 11-28-2017 Cult,Urine,Cath Specimen Description .URINE,STRAIGHT CATHETER VCUG Special Requests NOT REPORTED Culture NO GROWTH Report Status FINAL 11/28/2017 Normal [facility] Comment on above: Performed By: #### C THUC ####[address] [address] [place] VOIDING URETHROCYSTOGRAMo n 11-27-2017 FL VOIDING URETHROCYSTOGRAM EXAMINATION:VOIDING CYSTO URETHROGRAM11/27/2017 1:52 pmCOMPARISON:None.HISTORY:OR DERING SYSTEM PROVIDED HISTORY: Hydronephrosis, unspecified hydronephrosistypeTECHNOLOGI ST PROVIDED HISTORY:Please include oblique views. Please report the volume of contrast instilledin the bladder. If reflux is present, indicate whether it occurs on fillingor voiding.FLUOROSCOPY DOSE AND TYPE OR TIME AND EXPOSURES:1.5 minutes fluoroscopy time.D AP 4.964 Gy [id number]:A total of 370 mL of Cysto-Conray 2 was instilled into the urinary bladder valentina retrograde fashion through a Shell catheter. Urinary bladder fillsnormally. No filling defect identified on the early filling views. There isno evidence for vesicoureteral reflux on filling or voiding. Voidingdemonstrates a normal urethra.IMPRESSION: No evidence for vesicoureteral reflux on filling or emptying.Interpreted by:NELLY Floresigned by:Remy Lei MD11/27/18Final result Normal [facility] History and Physicalon 11-27 HIM IP Note OR Glass Grinder Normal [facility] NM KIDNEY W FLOW AND FUNCTIO N [...] 3 curves, obstructive.Interpreted by:NELLY Hiltonigned by:Kirsten Olivo MD11/27/18Final result Normal [facility] Coding Summary.on 11-03-2017 Coding Summary. CODING DATE: 017 FINAL [facility] STATUS: Home (Routine DC) PAYOR: [facility] ADMIT DX: REASON FOR VISIT DX: R30.0 Dysuria FINAL DX: PRINCIPAL: R30.0 Dysuria SECONDARY: PROCEDURES DOCTOR NAME DATE NOTE: The code number assigned matches the documented diagnosis and / or procedure in the patient's chart. However, the narrative phrase printed from the coding software may appear abbreviated, or result in slightly different terminology. Coded By: Ana Maria Pena Date Saved: 11/03/2017 07:59 pm [facility] C Urineon 11-02-2017 Urine culture, bacteria MicrobiologyPROCEDURE: Urine Culture [R1] U CleanCatch BODY SITE:COLLECTED DATE/TIME: 10/31/2017 09:00 EST RECEIVED DATE/TIME: 10/31/2017 15:30 ESTSTART DATE/TIME: 10/31/2017 15:30 EST FREE TEXT SOURCE:Shanique Munson Eva FFINAL REPORTSFinal Report [] Verified Date/Time: 11/02/2017 06:35 EST2,000 cfu/ml Mixed skin contaminantsPerforming LocationsR1: This test was performed at: [facility], [address] [place] [address], [address] , [facility] Comment on above: Performed By: #### 2 [id number] ####[facility] [address] [place] [address] Vital Signs Date Time Vital Sign Value Performing Clinician Facility 05-19-2025 13:04-0400 Body mass index (BMI) [Ratio] 29.85 kg/m2 [facility] Work Phone: [facility] 05-19-2025 13:04-0400 Body weight 71.67 kg [facility] Work Phone: [facility] 05-19-2025 13:04-0400 Diastolic blood pressure 70 mm[Hg] [facility] Work Phone: [facility] 05-19-2025 13:04-0400 Systolic blood pressure 112 mm[Hg] Fel[facility] Work Phone: [facility] 04-12-2025 11:07-0400 Body height 154.9 cm Tania Gama MD Work Phone: [facility] 04-12-2025 11:07-0400 Body mass index (BMI) [Ratio] 29.85 kg/m2 Tania Gama MD Work Phone: [facility] 04-12-2025 11:07-0400 Body weight 71.67 kg Tania Gama MD Work Phone: [facility] 04-12-2025 11:07-0400 Diastolic blood pressure 72 mm[Hg] Tania Gama MD Work Phone: [facility] 04-12-2025 11:07-0400 Heart rate 78 /min Tania aGma MD Work Phone: [facility] 04-12-2025 11:07-0400 Respiratory rate 18 /min Tania aGma MD Work Phone: [facility] 04-12-2025 11:07-0400 SaO2% (BldA) [Mass fraction] 98 % Tania Gama MD Work Phone: [facility] 04-12-2025 11:07-0400 Systolic blood pressure 126 mm[Hg] Tania Gama MD Work Phone: [facility] 01-10-2025 11:38-0500 Body height 154.9 cm Kurtis Scott LOGISTICS SPECIALIST Work Phone: [facility] 01-10-2025 11:38-0500 Body mass index (BMI) [Ratio] 30.87 kg/m2 Kurtis Scott LOGISTICS SPECIALIST Work Phone: [facility] 01-10-2025 11:38-0500 Body temperature 98.01 [degF] Kurtis Scott LOGISTICS SPECIALIST Work Phone: [facility] 01-10-2025 11:38-0500 Body weight 74.12 kg Kurtis Scott LOGISTICS SPECIALIST Work Phone: [facility] 01-10-2025 11:38-0500 Diastolic blood pressure 72 mm[Hg] Kurtis Scott LOGISTICS SPECIALIST Work Phone: [facility] 01-10-2025 11:38-0500 Heart rate 91 /min Kurtis Scott LOGISTICS SPECIALIST Work Phone: [facility] 01-10-2025 11:38-0500 SaO2% (BldA) [Mass fraction] 99 % Kurtis Scott LOGISTICS SPECIALIST Work Phone: [facility] 01-10-2025 11:38-0500 Systolic blood pressure 122 mm[Hg] Kurtis Scott LOGISTICS SPECIALIST Work Phone: [facility] 12-14-2024 09:23-0500 Body mass index (BMI) [Ratio] 30.91 kg/m2 Kurtis Scott LOGISTICS SPECIALIST Work Phone: [facility] 12-14-2024 09:23-0500 Body temperature 97.11 [degF] Kurtis Scott LOGISTICS SPECIALIST Work Phone: [facility] 12-14-2024 09:23-0500 Body weight 76.66 kg Kurtis Scott LOGISTICS SPECIALIST Work Phone: [facility] 10-12-2024 12:57-0500 Body mass index (BMI) [Ratio] 31.09 kg/m2 Kurtis Scott LOGISTICS SPECIALIST Work Phone: [facility] 10-12-2024 12:57-0500 Body temperature 97.2 [degF] Kurtis Scott LOGISTICS SPECIALIST Work Phone: [facility] 10-12-2024 12:57-0500 Body weight 77.11 kg Kurtis Scott LOGISTICS SPECIALIST Work Phone: [facility] 10-12-2024 12:57-0500 Diastolic blood pressure 80 mm[Hg] Kurtis Sarahburg LOGISTICS SPECIALIST Work Phone: [facility] 10-12-2024 12:57-0500 Heart rate 92 /min Kurtis Scott LOGISTICS SPECIALIST Work Phone: [facility] 10-12-2024 12:57-0500 SaO2% (BldA) [Mass fraction] 99 % Kurtis Scott LOGISTICS SPECIALIST Work Phone: [facility] 10-12-2024 12:57-0500 Systolic blood pressure 122 mm[Hg] Kurtis Scott LOGISTICS SPECIALIST Work Phone: [facility] 07-29-2024 09:48-0400 Body height 157.5 cm Kirsten Matamoros MD Work Phone: [facility] 07-29-2024 09:48-0400 Body mass index (BMI) [Ratio] 31.17 kg/m2 Kirsten Matamoros MD Work Phone: [facility] 07-29-2024 09:48-0400 Body temperature 97.3 [degF] Kirsten Matamoros MD Work Phone: [facility] 07-29-2024 09:48-0400 Body weight 77.29 kg Kirsten Matamoros MD Work Phone: [facility] 07-29-2024 09:48-0400 Diastolic blood pressure 66 mm[Hg] Kirsten Matamoros MD Work Phone: [facility] 07-29-2024 09:48-0400 Heart rate 110 /min Kirsten Matamoros MD Work Phone: [facility] 07-29-2024 09:48-0400 SaO2% (BldA) [Mass fraction] 99 % Kirsten Matamoros MD Work Phone: [facility] 07-29-2024 09:48-0400 Systolic blood pressure 126 mm[Hg] Kirsten Matamoros MD Work Phone: [facility] 08-22-2021 18:55-0400 Body height 152.4 cm Vanesa Diallo Other [employer] Other 08-22-2021 18:55-0400 Body mass index (BMI) [Ratio] 25.39 kg/m2 Vanesa Diallo Other [employer] Other 08-22-2021 18:55-0400 Body temperature 100 [degF] Vanesa Diallo Other [employer] Other 08-22-2021 18:55-0400 Body weight 58.97 kg Vanesa Diallo Other [employer] Other 08-22-2021 18:55-0400 Respiratory rate 16 /min Vanesa Diallo Other [employer] Other 08-22-2021 18:55-0400 SaO2% (BldA) [Mass fraction] 98 % Vanesa Diallo Other [employer] Other Encounters Encounter Date Encounter Type Care Provider Facility Start: 05-19-2025 End: 05-19-2025 Bamboo flowsheet Felicia Carly Thomaso CNM Work Phone: [facility] Start: 05-19-2025 End: 05-19-2025 Bamboo flowsheet Felicia Carly Thomaso CNM Work Phone: [facility] Start: 05-19-2025 End: 05-19-2025 Gynecological examination normal Felicia Carly Thomaso CNM Work Phone: [facility] Start: 05-19-2025 End: 05-19-2025 Periodic preventive med est patient 18-39 yrs Felicia L Floro CNM Work Phone: [facility] Comment on above: Normal gynecologic e xamination; Unwanted fertility Start: 05-19-2025 End: 05-19-2025 ambulatory FELICIA L FLORO Not Available Start: 04-13-2025 End: 04-13-2025 Telephone encounter Tania Gama MD Work Phone: [facility] Start: 04-12-2025 End: 04-12-2025 Bamboo flowsheet Tania Gama MD Work Phone: [facility] Start: 04-12-2025 End: 04-12-2025 Bamboo flowsheet Tania Gama MD Work Phone: [facility] Start: 04-12-2025 End: 04-12-2025 Patient encounter status Tania Gama MD Work Phone: [facility] Start: 04-12-2025 End: 04-12-2025 Periodic preventive med est patient 18-39 yrs Tania Gama MD Work Phone: [facility] Comment on above: Wellness examination (Primary Dx); control counseling; Migraine without aura and without status migrainosus, not intractable (CMS/HCC); Acute allergic reaction, subsequent encounter; Bee sting allergy; Unwanted fertility Start: 04-12-2025 End: 04-12-2025 ambulatory TANIA GAMA Not Available Start: 01-10-2025 End: 01-10-2025 Bamboo flowsheet Kurtis A Hackenburg LOGISTICS SPECIALIST Work Phone: [facility] Start: 01-10-2025 End: 01-10-2025 Bamboo flowsheet Kurtis A Hackenburg LOGISTICS SPECIALIST Work Phone: [facility] Start: 01-10-2025 End: 01-10-2025 ambulatory KURTIS A HACKENBURG Not Available Start: 01-10-2025 End: 01-10-2025 Office outpatient visit 15 minutes Kurtis A Hackenburg LOGISTICS SPECIALIST Work Phone: [facility] Comment on above: Left acute otitis me deneen (Primary Dx); Viral URI Start: 12-14-2024 End: 12-14-2024 Bamboo flowsheet Kurtis A Hackenburg LOGISTICS SPECIALIST Work Phone: [facility] Start: 12-14-2024 End: 12-14-2024 Bamboo flowsheet Kurtis A Hackenburg LOGISTICS SPECIALIST Work Phone: [facility] Start: 12-14-2024 End: 12-14-2024 Office outpatient visit 15 minutes Kurtis A Hackenburg LOGISTICS SPECIALIST Work Phone: [facility] Comment on above: Acute non-recurrent pansinusitis (Primary Dx); Acute cough; Nasal congestion; Ear pain, bilateral; Major depressive disorder, single episode, moderate (HCC) (CMS/HCC) Start: 12-14-2024 End: 12-14-2024 ambulatory KURTIS A HACKENBURG Not Available Start: 11-11-2024 End: 12-21-2024 Telephone encounter Tania Gama MD Work Phone: [facility] Start: 11-08-2024 End: 11-09-2024 Refill Lyndsay Elliott LOGISTICS SPECIALIST Work Phone: [facility] Comment on above: Primary hypertension (CMS/HCC) Start: 10-12-2024 End: 10-12-2024 Office outpatient visit 25 minutes Kurtis A Hackenburg LOGISTICS SPECIALIST Work Phone: [facility] Comment on above: Tendinopathy of righ t rotator cuff (Primary Dx); Muscle spasm of right shoulder Start: 10-12-2024 End: 10-12-2024 ambulatory KURTIS A HACKENBURG Not Available Start: 08-03-2024 End: 11-22-2024 Telephone encounter Tania Gama MD Work Phone: [facility] Comment on above: Anxiety, generalized (CMS/HCC); Unwanted fertility; Primary hypertension (CMS/HCC) Start: 07-30-2024 End: 07-30-2024 ambulatory [facility] Start: 07-29-2024 End: 07-29-2024 Bamboo flowsheet Kirsten Matamoros MD Work Phone: [facility] Start: 07-29-2024 End: 07-29-2024 Bamboo flowsheet Kirsten Matamoros MD Work Phone: [facility] Start: 07-29-2024 End: 07-29-2024 Office outpatient visit 15 minutes Kirsten Matamoros MD Work Phone: [facility] Comment on above: Sore throat (Primary Dx); Acute pharyngitis, unspecified etiology Start: 07-29-2024 End: 07-29-2024 ambulatory KIRSTEN MATAMOROS Not Available Start: 07-28-2024 End: 07-29-2024 Refill Tania Gama MD Work Phone: [facility] Comment on above: Anxiety, generalized (CMS/HCC) Start: 07-23-2024 End: 07-23-2024 ambulatory [facility] Start: 07-02-2024 End: 07-02-2024 ambulatory [facility] Start: 06-16-2024 End: 06-16-2024 ambulatory TANIA GAMA Not Available Start: 06-08-2024 End: 06-08-2024 ambulatory TANIA GAMA Not Available Start: 06-03-2024 End: 06-03-2024 ambulatory TANIA GAMA [facility] Start: 09-29-2023 End: 09-29-2023 ambulatory Ramírez Alas Facility:[facility] Start: 09-29-2023 End: 09-29-2023 ambulatory MD Tania Gama Work Phone: [facility] Work Phone: Start: 09-29-2023 End: 09-29-2023 Departed Referred MD Tania Gama Work Phone: [facility] [place] Work Phone: Start: 09-23-2023 End: 09-23-2023 ambulatory Felicia Mancini Facility:[facility] Start: 09-23-2023 End: 09-23-2023 Departed Referred MD Tania Gama Work Phone: [facility] [place] Work Phone: Start: 02-27-2023 End: 02-28-[address] TANIA GAMA Facility:[facility] Start: 04-28-2022 End: 04-29-2022 ambulatory LAKISHA HAWKNIS Facility:[facility] Start: 08-22-2021 (URG) Urgent Care Visit Vanesa Narinder [facility] Start: 03-05-2018 End: 03-08-2018 Ambulatory [facility] Start: 12-23-2017 End: 12-25-2017 Evaluation and management of inpatient ISMAEL MCKEON [facility] Start: 12-19-2017 End: 12-20-2017 Ambulatory [facility] Start: 11-27-2017 End: 11-28-2017 [facility]: 11-27-2017 End: 11-27-2017 [facility] Start: 11-27-2017 End: 11-27-2017 [facility] Start: 10-31-2017 End: 11-01-2017 Ambulatory Shanique Simon [facility] [place] Date Procedure Procedure Detail Performing Clinician Start: 12-14-2024 STATUS COVID-19/FLU Kurtis Amy foreman LOGISTICS SPECIALIST Work Phone: Start: 07-29-2024 Iaadiadoo streptococcus group a Kirsten Matamoros MD Work Phone: Start: 05-04-2024 History of appendectomy History of appendectomy Kirsten Matamoros MD Work Phone: Start: 03-05-2018 Kidney img morphology [...] W/ REFLEX TO MG FOR LOW K ROSELYNTEVIN MEDINAPHANI Start: 12-24-2017 CBC ROSELYN GLORIA Start: 12-24-2017 Radiologic exam abdomen 1 view [...] REFLEX TO MG FOR LOW K ROSELYN SKNAT Start: 12-23-2017 CBC ROSELYN CASTRO Start: 12-23-2017 [...] img morphology vascular flow 1 w/rx ROSELYN GLORIA Start: 11-27-2017 CULTURE, URINE CATHETER ROSELYN JESSICA Velasquez Start: 11-27-2017 Continuous pulse oximetry ROSELYN MOI OLIVEIRA Start: 11-27-2017 ADVANCE DIET TOLERATED (NURSING COMMUNICATION) ROSELYN CASTRO Start: 11-27-2017 CARDIAC MONITORING ROSELYN CASTRO Start: 11-27-2017 DIET NPO, NOW ROSELYN CASTRO Start: 11-27-2017 MEASURE WEIGHT ROSELYN CASTRO Start: 11-27-2017 MISCELLANEOUS NURSING CARE ORDER (SPECIFY) ROSELYN CASTRO Start: 11-27-2017 NOTIFY PHYSICIAN (SPECIFY) ROSELYN AKHTARKI Start: 11-27-2017 PEDIATRIC LOW FLOW NASAL CANNULA ROSELYN CASTRO Start: 11-27-2017 VITAL SIGNS ROSELYN CASTRO Start: 11-27-2017 SALINE LOCK IV ROSELYN CASTRO Plan of Treatment Date Care Activity Detail Author Start: 05-23-2026 End: 05-23-2026 Patient encounter procedure 05/23/2026 10:00 AM EDT Office Visit [facility] [address] [place] [address] Felicia Mancini, CNM [address] [place], [place] [id number] [facility] Start: 07-25-2025 Influenza vaccination Influenz a Vaccine (Season Ended) [facility] Start: 05-19-2025 End: 05-19-2025 Patient encounter procedure [facility] Comment on above: Arrived Start: 04-12-2025 End: 04-12-2025 Patient encounter procedure 04/12/2025 11:30 AM EDT Office Visit [facility] [address] [place] [address] Tania Gama MD [address] [place], [place] [phone] Arrived [facility] Comment on above: Arrived Start: 12-14-2024 End: 12-14-2024 Patient encounter procedure 12/14/2024 9:30 AM EST Office Visit [facility] [address] [place] [phone] Kurtis Scott NP [address] [place] [address] Arrived [facility] Comment on above: Arrived Start: 10-19-2024 End: 10-19-2024 Patient encounter procedure 10/19/2024 9:00 AM EST Office Visit [facility] [address] [place] [id number] Tania Gama MD [address] [place] [address] [facility] Start: 07-29-2024 End: 07-29-2024 Patient encounter procedure 07/29/2024 9:40 AM EDT Office Visit [facility] [address] [place] [phone] Kirsten Matamoros MD [address] [place] [address] Arrived [facility] Comment on above: Arrived Start: 07-25-2024 Influenza vaccination Influenza Vacc ine (#1) [facility] Immunizations Immunization Date Immunization Notes Care Provider Fa cility 07-16-2019 meningococcal polysaccharide (groups A, C, Y and W-135) diphtheria toxoid conjugate vaccine (MCV4P) Kirsten Matamoros MD Work Phone: [facility] 07-26-2014 tetanus toxoid, redu uche diphtheria toxoid, and acellular pertussis vaccine, adsorbed Kirsten Matamoros MD Work Phone: [facility] 07-26-2014 varicella virus vaccine Kirsten Matamoros MD Work Phone: [facility] 09-21-2013 influenza, seasonal, injectable, preservative free Kirsten Matamoros MD Work Phone: [facility] 09-21-2013 influenza virus vacc ine, unspecified formulation Kirsten Matamoros MD Work Phone: [facility] 08-12-2007 diphtheria, tetanus toxoids and acellular pertussis vaccine Kirsten Matamoros MD Work Phone: [facility] 08-12-2007 measles, mumps and r ubella virus vaccine Kirsten Matamoros MD Work Phone: [facility] 08-12-2007 poliovirus vaccine, inactivated Kirsten Matamoros MD Work Phone: [facility] 02-07-2004 diphtheria, tetanus toxoids and acellular pertussis vaccine Kirsten Matamoros MD Work Phone: [facility] 02-07-2004 haemophilus influenz ae type b vaccine, PRP-T conjugate Kirsten Matamoros MD Work Phone: [facility] 02-07-2004 pneumococcal conjuga te vaccine, 7 valent Kirsten Matamoros MD Work Phone: [facility] 07-14-2002 measles, mumps and r ubella virus vaccine Kirsten Matamoros MD Work Phone: [facility] 07-14-2002 varicella virus vaccine Kirsten Matamoros MD Work Phone: [facility] 01-13-2002 diphtheria, tetanus toxoids and acellular pertussis vaccine, unspecified formulation Kirsten Matamoros MD Work Phone: [facility] 01-13-2002 haemophilus influenz ae type b vaccine, conjugate unspecified formulation Kirsten Matamoros MD Work Phone: [facility] 01-13-2002 hepatitis B vaccine, pediatric or pediatric/adolescent dosage Kirsten Matamoros MD Work Phone: [facility] 01-13-2002 pneumococcal conjuga te vaccine, 7 valent Kirsten Matamoros MD Work Phone: [facility] 01-13-2002 poliovirus vaccine, inactivated Kirsten Matamoros MD Work Phone: [facility] 2001 diphtheria, tetanus toxoids and acellular pertussis vaccine, unspecified formulation Kirsten Matamoros MD Work Phone: [facility] 2001 haemophilus influenz ae type b conjugate and Hepatitis B vaccine Kirsten Matamoros MD Work Phone: [facility] 2001 pneumococcal conjuga te vaccine, 7 valent Kirsten Matamoros MD Work Phone: [facility] 2001 poliovirus vaccine, inactivated Kirsten Matamoros MD Work Phone: [facility] 2001 diphtheria, tetanus toxoids and acellular pertussis vaccine, unspecified formulation Kirsten Matamoros MD Work Phone: [facility] 2001 haemophilus influenz ae type b conjugate and Hepatitis B vaccine Kirsten Matamoros MD Work Phone: [facility] 2001 poliovirus vaccine, inactivated Kirsten Matamoros MD Work Phone: [facility] Payers Date Payer Category Payer Self-pay [id number] 2023 Unknown [id number] 2023 Medicaid [id number] 2022 Private Health Insurance [id number] 2017 Unknown 2016 Unknown [id number] 2001 Unknown [id number] 2.16.84 [id number] 2001 Unknown [id number] 2.16.84 [id number] 2001 Unknown [id number] 2.16.8 [id number] 2001 Unknown [id number] 2.16.8 [id number] 2001 Unknown [id number] 2.16.8 [id number] 2001 Unknown [id number] 2.16.84 [id number] 2001 Unknown [id number] 2.16.84 [id number] 2001 Unknown [id number] 2.16.84 [id number] 2001 Unknown [id number] 2.16.84 [id number] 2001 Unknown [id number] 2.16.84 [id number] 2001 Unknown [id number] 2.16.84 [id number] 2001 Unknown [id number] 2.16.84 [id number] 1959 Private Health Insurance [id number] 1959 Unknown [id number] 2.1 [id number] 1959 Unknown [id number] 1959 Unknown [id number] Unknown [id number] 2.16.8 [id number] Unknown [id number] 2.16.8 [id number] Social History Date Type Detail Facility Unknown if ever smoked [employer] Other Start: 11-06-2023 End: 10-12-2024 Sex Assigned At [facility] Other Start: 2001 Sex Assigned At Female F [facility] Start: 11-06-2023 Tobacco smoking stat [facility] Never smoked tobacco [facility] Start: 11-06-2023 Tobacco use and exposure Smokeless tobacco non-user [facility] Start: 10-12-2024 End: 05-19-2025 Alcoholic beverage intake Ex-drinker (finding) [facility] Start: 11-06-2023 End: 10-12-2024 History of Social function [facility] The thought of jagruti somers myself has occurred to me Never [facility] Start: 10-12-2024 Alcohol Comment caffeine: 4 cu ps/day coffee [facility] Start: 2001 Sex assigned at Not on file [facility] Start: 02-05-2023 Gender identity Identifies as female gender (finding) [facility] Start: 05-22-2023 Alcohol Comment caffeine: >4 c ups/day coffee, diet pepsi and bangs [facility] Start: 07-29-2024 Alcohol Comment caffeine: 2 cu ps/day coffee, diet pepsi and bangs [facility] Goals Date Patient Goal Desired Activity /State Personal health goal Clinical Notes 08-22-2021 to 05-19-2025 Felicia Mancini CNM - 05/19/2025 1:00 PM EDTTelephone Encounter - Karla Hutton - 04/13/2025 10:20 AM EDTTelephone Encounter - Karla Hutton - 04/13/2025 10:20 AM EDT Note Date & Type Note Facility 05-19-2025 History of Presen t illness Narrative YEARLY HPI: This is a established patient. Chief Complaint Patient presents with Gynecologic Exam Here for annual exam. OB History Para Term AB Living 1 1 1 1 SAB IAB Ectopic Multiple Live Births 1 # Outcome Date GA Lbr Lai/2nd Weight Sex Type Anes PTL Lv 1 09/26/23 [id number] 5 lb 5 oz F CS-LTranv N [employer] complaints no Changes in healthsince last visit: no Surgeries or hospitalizations since last visit: no control method: nuvaring Menses: regular every 28-30 days Last pap: 05/18/24 Other: History: Past Medical History: Diagnosis Date Allergic to bees Asthma (HCC) Enlarged kidney ETD (eustachian tube dysfunction) Fatigue GERD (gastroesophageal reflux disease) History of hydronephrosis History of medical problems injury to uvula History of medical treatment Right kidney repair, [facility] [place] Dr. Agrawal; Dr. Geetha Newman urologist Hydronephrosis Other hammer toe(s) (acquired), left foot Other hammer toe(s) (acquired), right foot Pharyngitis, unspecified etiology Seasonal allergic rhinitis, unspecified trigger Past Surgical History: Procedure Laterality Date ADENOIDECTOMY 2007 APPENDECTOMY 2017 SECTION, LOW TRANSVERSE 09/26/2023 CT ANGIOGRAM CHEST 10/28/2024 CT ANGIOGRAM CHEST MYRINGOTOMY W/ TUBES Bilateral twice OTHER SURGICAL HISTORY 2017Dec 18; stent inserted into Right kidney. ureter was on top of kidney and had to be moved. Family History Problem Relation Name Age of Onset Hypertension Mother Anxiety disorder Mother on meds Heart disease Father No Known Problems Brother Diabetes Maternal Grandmother Heart disease Maternal Grandmother Hypertension Maternal Grandmother ALS Maternal Grandfather Diabetes Paternal Grandfather Cancer Paternal Grandfather Allergies: Allergies Allergen Reactions Beeswax Anaphylaxis Bee Venom Unknown Other Reaction(s): Unknown Labetalol Itching Other Wasp Venom Protein Medications: Current Outpatient Medications on File Prior to Visit Medication Sig Dispense Refill EPINEPHrine (Epipen) 0.3 MG/0.3ML injection syringe Inject 0.3 mL (0.3 mg) as directed 1 (one) time for 1 dose use as directed for allergic reaction and then call 911 0.3 mL 0 etonogestrel-ethinyl estradiol (Nuvaring) 0.12-0.015 MG/24HR vaginal ring Insert vaginally and leave in place for 21 consecutive days (3 weeks), then remove. Wait for 7 days before inserting new ring. 1 each 1 [DISCONTINUED] metoprolol succinate XL (Toprol-XL) 50 MG 24 hr tablet (Patient not taking: Reported on 04/12/2025) [DISCONTINUED] NIFEdipine XL (Procardia XL) 30 MG 24 hr tablet TAKE 1 TABLET(30 MG) BY MOUTH DAILY. DO NOT CRUSH, CHEW, OR SPLIT (Patient not taking: Reported on 04/12/2025) 90 tablet 1 [DISCONTINUED] Rimegepant Sulfate (Nurtec) 75 MG tablet dispersible Take 75 mg by mouth Daily as needed (migraines) 10 tablet 1 No current facility-administered medications on file prior to visit. ROS: Review of Systems All other systems reviewed and are negative. There were no vitals filed for this visit. Physical exam: Physical Exam Vitals reviewed. Constitutional: Appearance: Normal appearance. HENT: Head: Normocephalic. Right Ear: Tympanic membrane normal. Left Ear: Tympanic membrane normal. Mouth/Throat: Mouth: Mucous membranes are moist. Eyes: Pupils: Pupils are equal, round, and reactive to light. Cardiovascular: Rate and Rhythm: Normal rate and regular rhythm. Pulses: Normal pulses. Heart sounds: Normal heart sounds. Pulmonary: Effort: Pulmonary effort is normal. Breath sounds: Normal breath sounds. Chest: Breasts: Right: Normal. Left: Normal. Abdominal: General: Abdomen is flat. Bowel sounds are normal. Palpations: Abdomen is soft. Tenderness: There is no abdominal tenderness. Genitourinary: General: Normal vulva. Exam position: Lithotomy position. Vagina: Normal. No tenderness. Cervix: Normal. No cervical motion tenderness. Uterus: Normal. Adnexa: Right adnexa normal and left adnexa normal. Comments: Bi manual performed. Nuva ring palpated with exam. Musculoskeletal: General: Normal range of motion. Cervical back: Normal range of motion and neck supple. Skin: General: Skin is warm and dry. Neurological: General: No focal deficit present. Mental Status: She is alert and oriented to person, place, and time. Psychiatric: Mood and Affect: Mood normal. Assessment and Plan: 1. Annual exam 2. SBE discussed: Yes 3. Diet and exercise discussed: Yes 4. Wt control discussed: No 5. Safe sex discussed: No Liana was seen today for gynecologic exam. Diagnoses and all orders for this visit: Normal gynecologic examination No follow-ups on file. There are no Patient Instructions on file for this visit. Tania Ibarra MA, 05/19/2025 1:06 PM documented in this encounter [facility] 04-13-2025 Telephone encounter Note Pt said sample of Nurtec 75mg worked well for her and she said you told her if it did you would call rx for her. She would like that to [facility] [place] please. [facility] 04-13-2025 Miscellaneous Notes Pt said sample of Nurtec 75mg worked well for her and she said you told her if it did you would call rx for her. She would like that to [facility] please. documented in this encounter [facility] 04-12-2025 History of Presen t illness Narrative Images from the original note were not included. Liana Kelsey is a 24 y.o. female presents with chief complaint of Annual Exam HPI: HPI History of Present Illness The patient presents for an annual exam. She has been trialing NuvaRing and has not been using it daily. She has not had any recent visits to the clinic but has requested a switch to NuvaRing, which was provided for a month. She was instructed to monitor her blood pressure while on NuvaRing. She reports no history of thromboembolic events in her lower extremities or pulmonary system. However, she recalls a potential trauma-induced blood clot in her armpit during her youth, which was managed with medication. She experiences severe headaches, including one at present, which she attributes to weather changes. The pain is localized around her eyes and head. She has been managing these headaches with Tylenol, which provides intermittent relief. She recalls that her anxiety and ADHD medications were also intended to alleviate migraines. She was prescribed an additional medication for her headaches but refrained from taking it due to concerns about potential drowsiness, as she was working 15 hours per week at the time. She experiences headaches once or twice weekly, with a recent increase in frequency over the past few days, which she again attributes to weather fluctuations. She reports no change in her headache pattern since starting NuvaRing. Interestingly, she notes that her headaches completely resolved during her , except for one episode when her blood pressure peaked at 200/112, necessitating a magnesium drip. She has not checked the expiration date of her EpiPen, which she got last summer. Her mood has been stable. SUBJECTIVE: MEDICATIONS: Current Outpatient Medications Medication Instructions EPINEPHrine (EPIPEN) 0.3 mg, Injection, Once, use as directed for allergic reaction and then call 911 etonogestrel-ethinyl estradiol (Nuvaring) 0.12-0.015 MG/24HR vaginal ring Insert vaginally and leave in place for 21 consecutive days (3 weeks), then remove. Wait for 7 days before inserting new ring. metoprolol succinate XL (Toprol-XL) 50 MG 24 hr tablet NIFEdipine XL (Procardia XL) 30 MG 24 hr tablet TAKE 1 TABLET(30 MG) BY MOUTH DAILY. DO NOT CRUSH, CHEW, OR SPLIT I have reviewed and reconciled the history and medication list with the patient today. REVIEW OF SYMPTOMS: Review of Systems OBJECTIVE: Visit Vitals BP 126/72 Pulse 78 Resp 18 Ht 5' 1 Wt 158 lb SpO2 98% BMI 29.85 kg/m OB Status Having periods Smoking Status Never BSA 1.76 m Physical Exam Vitals and nursing note reviewed. Constitutional: General: She is not in acute distress. Appearance: Normal appearance. HENT: Head: Normocephalic and atraumatic. Nose: Nose normal. Mouth/Throat: Mouth: Mucous membranes are moist. Pharynx: Oropharynx is clear. Eyes: Extraocular Movements: Extraocular movements intact. Cardiovascular: Rate and Rhythm: Normal rate and regular rhythm. Pulses: Normal pulses. Heart sounds: Normal heart sounds. Pulmonary: Effort: Pulmonary effort is normal. Breath sounds: Normal breath sounds. Musculoskeletal: Cervical back: Normal range of motion and neck supple. Skin: General: Skin is warm and dry. Neurological: General: No focal deficit present. Mental Status: She is alert. Psychiatric: Mood and Affect: Mood normal. ASSESSMENT AND PLAN: Assessment & Plan 1. Annual examination. - Blood pressure readings are within the normal range. - No swelling or significant physical exam findings noted. - Advised to persist with random blood pressure monitoring. - Prescription refill for NuvaRing will be provided. 2. Headaches. - Reports experiencing headaches once or twice a week, sometimes more frequently due to weather changes. - Tylenol has been partially effective in managing headaches. - Samples of newer medications for headaches will be provided if available. - Advised to continue monitoring blood pressure if headaches worsen. 3. Medication management. - EpiPen refill will be sent to the pharmacy. - Mood has been stable and no significant changes noted. - No recent use of metoprolol or nifedipine for at least four to five months. Assessment/Plan Problem List Items Addressed This Visit Migraine without aura and without status migrainosus, not intractable (CMS/HCC) Other Visit Diagnoses Wellness examination - Primary control counseling Acute allergic reaction, subsequent encounter Bee sting allergy Unwanted fertility documented in this encounter [facility] 01-10-2025 History of Presen t illness Narrative Images from the original note were not included. Liana Kelsey is a 24 y.o. female presents with chief complaint of Cough HPI: HPI History of Present Illness The patient presents for evaluation of runny nose, sore throat, congestion, chills, and heat flashes. She reports the onset of symptoms on Friday, characterized by a runny nose, sore throat, and congestion. She also experiences alternating episodes of chills and heat flashes. Although she has not measured her temperature, she suspects the presence of fever at night due to episodes of severe shaking and feeling cold, followed by profuse sweating after approximately 2 hours. It is noteworthy that she was exposed to influenza at her daughter's daycare, which led to a widespread outbreak affecting all attendees. SUBJECTIVE: MEDICATIONS: Current Outpatient Medications Medication Instructions EPINEPHrine (EPIPEN) 0.3 mg, Injection, Once, use as directed for allergic reaction and then call 911 metoprolol succinate XL (Toprol-XL) 50 MG 24 hr tablet NIFEdipine XL (Procardia XL) 30 MG 24 hr tablet TAKE 1 TABLET(30 MG) BY MOUTH DAILY. DO NOT CRUSH, CHEW, OR SPLIT norethindrone (MICRONOR) 0.35 mg, Oral, Daily I have reviewed and reconciled the history and medication list with the patient today. REVIEW OF SYMPTOMS: Review of Systems Constitutional: Positive for fatigue and fever. HENT: Positive for congestion, rhinorrhea, sinus pain and sore throat. Respiratory: Positive for cough, shortness of breath and wheezing. Cardiovascular: Negative for chest pain, palpitations and leg swelling. Gastrointestinal: Negative for abdominal pain. OBJECTIVE: Visit Vitals BP 122/72 Pulse 91 Temp 98 F Ht 5' 1 Wt 163 lb 6.4 oz SpO2 99% BMI 30.87 kg/m OB Status Having periods Smoking Status Never BSA 1.79 m Physical Exam Vitals and nursing note reviewed. Constitutional: Appearance: Normal appearance. HENT: Head: Normocephalic and atraumatic. Right Ear: Tympanic membrane normal. Left Ear: Tympanic membrane is erythematous and bulging. Nose: Congestion present. Right Sinus: Frontal sinus tenderness present. Left Sinus: Frontal sinus tenderness present. Mouth/Throat: Mouth: Mucous membranes are moist. Pharynx: Posterior oropharyngeal erythema present. Tonsils: No tonsillar exudate. Cardiovascular: Rate and Rhythm: Normal rate and regular rhythm. Pulses: Normal pulses. Heart sounds: Normal heart sounds. Pulmonary: Effort: Pulmonary effort is normal. Breath sounds: Normal breath sounds. Musculoskeletal: Cervical back: Normal range of motion and neck supple. Skin: General: Skin is warm and dry. Capillary Refill: Capillary refill takes less than 2 seconds. Neurological: Mental Status: She is alert and oriented to person, place, and time. ASSESSMENT AND PLAN: Assessment/Plan Diagnoses and all orders for this visit: Left acute otitis media - amoxicillin (Amoxil) 500 MG capsule; Take 1 capsule (500 mg) by mouth in the morning and 1 capsule (500 mg) before bedtime. Do all this for 7 days. Initiate antibiotics as prescribed. Tylenol/motrin OTC prn for fever/discomfort. Flonase/oral antihistamine OTC to help dry up secretions. Instructed to notify office if symptoms persist or worsen. Viral URI Most likely viral in nature, will need to run its course. Educated patient viral infections such as colds/flus do not respond to abx and typically do not begin to improve until 7-10 days into the illness. Discussed symptomatic treatment with patient. Humidifier at bedside to moisten area. Push fluids. Rest. Good handwashing. Follow up if symptoms do not improve. To ER for markedly worsening symptoms. documented in this encounter [facility] 12-14-2024 History of Presen t illness Narrative Liana Kelsey is a 24 y.o. female presents with chief complaint of URI HPI: Patient is here for sx of headache, congestion, bilateral ear pain, and cough with production of phlegm that started 11 days ago. Has been taking tylenol sinus and dayquil/Nyquist. Patient's child was sick last week with possible rsv. History of Present Illness The patient presents for evaluation of a cough. She reports a persistent cough that has been present for an extended period. The cough is productive, yielding green phlegm. She also experiences ear pain, congestion, headaches, and sinus pressure. She has not been monitoring her temperature and is uncertain about the presence of fever. Her infant was ill last week but has since recovered. Despite attempts to alleviate her symptoms with [id number] medications such as Tylenol Sinus and DayQuil, she has not found any relief. MEDICATIONS Current: Tylenol Sinus, DayQuil SUBJECTIVE: MEDICATIONS: ALLERGIES Current Outpatient Medications Medication Instructions EPINEPHrine (EPIPEN) 0.3 mg, Injection, Once, use as directed for allergic reaction and then call 911 metoprolol succinate XL (Toprol-XL) 50 MG 24 hr tablet NIFEdipine XL (Procardia XL) 30 MG 24 hr tablet TAKE 1 TABLET(30 MG) BY MOUTH DAILY. DO NOT CRUSH, CHEW, OR SPLIT norethindrone (MICRONOR) 0.35 mg, Oral, Daily Allergies Allergen Reactions Beeswax Anaphylaxis Bee Venom Unknown Other Reaction(s): Unknown Labetalol Itching Other Wasp Venom Protein PAST MEDICAL HISTORY: SOCIAL HISTORY SURGICAL HISTORY: Past Medical History: Diagnosis Date Allergic to bees Asthma (CMS/HCC) Enlarged kidney ETD (eustachian tube dysfunction) Fatigue GERD (gastroesophageal reflux disease) History of hydronephrosis History of medical problems injury to uvula History of medical treatment Right kidney repair, [place], [place] Dr. Agrawal; Dr. Geetha Newman urologist [...] 2007 APPENDECTOMY 2017 SECTION, LOW TRANSVERSE 09/26/2023 CT ANGIOGRAM CHEST 10/28/2024 CT ANGIOGRAM CHEST MYRINGOTOMY W/ TUBES Bilateral twice OTHER SURGICAL HISTORY 2017Dec 18; stent inserted into Right kidney. ureter was on top of kidney and had to be moved. REVIEW OF SYMPTOMS: Review of Systems Constitutional: Positive for fatigue. Negative for fever. HENT: Positive for congestion, rhinorrhea, sinus pain and sore throat. Respiratory: Positive for cough, shortness of breath and wheezing. Cardiovascular: Negative for chest pain, palpitations and leg swelling. Gastrointestinal: Negative for abdominal pain. All other systems reviewed and are negative. OBJECTIVE: Vitals: 12/14/24 0923 Temp: 97.1 F Physical Exam Vitals and nursing note reviewed. Constitutional: Appearance: Normal appearance. HENT: Head: Normocephalic and atraumatic. Right Ear: A middle ear effusion is present. Left Ear: A middle ear effusion is present. Nose: Congestion present. Right Turbinates: Swollen. Left Turbinates: Swollen. Right Sinus: Maxillary sinus tenderness present. Left Sinus: Maxillary sinus tenderness present. Mouth/Throat: Pharynx: Uvula midline. Posterior oropharyngeal erythema present. Eyes: Extraocular Movements: Extraocular movements intact. Pupils: Pupils are equal, round, and reactive to light. Cardiovascular: Rate and Rhythm: Normal rate and regular rhythm. Heart sounds: Normal heart sounds, S1 normal and S2 normal. Pulmonary: Effort: Pulmonary effort is normal. Breath sounds: Normal breath sounds. Musculoskeletal: Cervical back: Normal range of motion. Lymphadenopathy: Cervical: No cervical adenopathy. Skin: General: Skin is warm and dry. Capillary Refill: Capillary refill takes less than 2 seconds. Neurological: Mental Status: She is alert and oriented to person, place, and time. ASSESSMENT AND PLAN: Assessment/Plan Diagnoses and all orders for this visit: Acute non-recurrent pansinusitis - amoxicillin-clavulanate (Augmentin) 875-125 MG tablet; Take 1 tablet (875 mg) by mouth in the morning and 1 tablet (875 mg) before bedtime. Do all this for 7 days. Take antibiotics as prescribed, do not stop early. May take tylenol/motrin OTC prn for pain/fever. Increase oral intake of fluids to thin secretions. Saline nasal spray. May use throat lozenges and warm salt water gargles to alleviate sore throat. Humidified air. If symptoms do not improve in 48 hrs after starting antibiotics instructed patient to come to office for further evaluation. Acute cough - STATUS COVID-19/FLU Nasal congestion - STATUS COVID-19/FLU Ear pain, bilateral - STATUS COVID-19/FLU Major depressive disorder, single episode, moderate (HCC) (CMS/HCC) Stable. No follow-ups on file. documented in this encounter [facility] 11-11-2024 Telephone encounter Note Pt calling states she saw cardiology they did a CT and saw ruptured ovarian cyst, advised to fu with [employer] - I was going to schedule her but she's not sure if that's something she needs seen for, so she asked if I would message you first to find out. She said cardiology would be sending those images to you. [facility] 11-11-2024 Miscellaneous Notes Pt calling states she saw cardiology they did a CT and saw ruptured ovarian cyst, advised to fu with [employer] - I was going to schedule her but she's not sure if that's something she needs seen for, so she asked if I would message you first to find out. She said cardiology would be sending those images to you. documented in this encounter [facility] 10-12-2024 History of Presen t illness Narrative [...] Flowsheet Row Office Visit from 10/12/2024 in [facility] with Kurtis Scott NP Hospital Information ED, Hospital or Retirement Facility Discharge? ED Patient has been contacted within 1 week of being seen in the ED Yes Diagnosis Rotator Cuff Injury Discharge Date 10/11/24 Discharged To: Home Setting Discharge Hospital [facility] Admission Date 10/11/24 Medications Discharge medications [...] History: Diagnosis Date Allergic to bees Asthma (CMS/HCC) Enlarged kidney ETD (eustachian tube dysfunction) Fatigue GERD (gastroesophageal reflux disease) History of hydronephrosis History of medical problems injury to uvula History of medical treatment Right kidney repair, [place] Dr. Agrawal; Dr. Geetha Herreraedo urologist Hydronephrosis Other hammer toe(s) (acquired), left [...] follow-ups on file. documented in this encounter [facility] 08-03-2024 Telephone encounter Note Please send new rx to pharmacy control is out Fluoxetine Nifedipine [facility] 08-03-2024 Miscellaneous Notes Please send new rx to pharmacy control is out Fluoxetine Nifedipine documented in this encounter [facility] 07-30-2024 Note Cardiology Clinic No te Chief Complaint: New patient for palpitations, htn HPI: Liana Kelsey is a 24 y.o. female who has a past medical history of Hypertension. that is referred to Cardiology clinic for evaluation of hypertension and palpitations. She presents today for follow up having renal artery duplex done at [facility]. Pt says that she is not taking [...] as needed Andie Alba MD Interventional Cardiology [facility] 07-29-2024 History of Presen t illness Narrative Images from the original note were not included. Liana Kelsey is a 24 y.o. female presents with chief complaint of Sore Throat HPI: Patient had a sore throat that started two days ago but that has gotten worse yesterday. She said that it is painful when she swallow with no other sx. Patient is unaware of being around anyone that is sick. History of Present Illness The patient presents for evaluation of multiple medical concerns. SUBJECTIVE: MEDICATIONS: ALLERGIES Current Outpatient Medications Medication Instructions EPINEPHrine (EPIPEN) 0.3 mg, Injection, Once, use as directed for allergic reaction and then call 911 FLUoxetine (PROZAC) 10 mg, Oral, Daily metoprolol succinate XL (Toprol-XL) 50 MG 24 hr tablet NIFEdipine XL (PROCARDIA XL) 30 mg, Oral, Daily, Do not crush, chew, or split. norethindrone (MICRONOR) 0.35 mg, Oral, Daily Allergies Allergen Reactions Beeswax Anaphylaxis Bee Venom Unknown Other Reaction(s): Unknown Labetalol Itching Other Wasp Venom Protein PAST MEDICAL HISTORY: SOCIAL HISTORY SURGICAL HISTORY: Past Medical History: Diagnosis Date Allergic to bees Asthma (CMS/HCC) Enlarged kidney ETD (eustachian tube dysfunction) Fatigue GERD (gastroesophageal reflux disease) History of hydronephrosis History of medical problems injury to uvula History of medical treatment Right kidney repair, [place], [place] Dr. Agrawal; Dr. Iniguez [place] urologist Hydronephrosis Other hammer toe(s) (acquired), left foot Other hammer toe(s) (acquired), right foot Pharyngitis, unspecified etiology Seasonal allergic rhinitis, unspecified trigger Social History Tobacco Use Smoking status: Never Smokeless tobacco: Never Substance Use Topics Alcohol use: Not Currently Comment: caffeine: 2 cups/day coffee, diet pepsi and bangs Drug use: Never Past Surgical History: Procedure Laterality Date ADENOIDECTOMY 2007 APPENDECTOMY 2017 SECTION, LOW TRANSVERSE 09/26/2023 MYRINGOTOMY W/ TUBES Bilateral twice OTHER SURGICAL HISTORY 2017Dec 18; stent inserted into Right kidney. ureter was on top of kidney and had to be moved. REVIEW OF SYMPTOMS: Review of Systems HENT: Positive for sore throat. All other systems reviewed and are negative. OBJECTIVE: Visit Vitals BP 126/66 Pulse 110 Temp 97.3 F Ht 5' 2 Wt 170 lb 6.4 oz SpO2 99% BMI 31.17 kg/m OB Status Having periods Smoking Status Never BSA 1.84 m Physical Exam Constitutional: Appearance: Normal appearance. She is normal weight. HENT: Head: Normocephalic and atraumatic. Right Ear: Tympanic membrane and ear canal normal. Left Ear: Tympanic membrane and ear canal normal. Nose: No congestion or rhinorrhea. Mouth/Throat: Mouth: Mucous membranes are moist. Pharynx: No oropharyngeal exudate. Comments: Mild pharyngeal injection Eyes: Pupils: Pupils are equal, round, and reactive to light. Cardiovascular: Rate and Rhythm: Normal rate and regular rhythm. Heart sounds: No murmur heard. Pulmonary: Effort: Pulmonary effort is normal. Breath sounds: Normal breath sounds. No wheezing or rhonchi. Musculoskeletal: General: No swelling. Cervical back: Normal range of motion and neck supple. Right lower leg: No edema. Left lower leg: No edema. Lymphadenopathy: Cervical: No cervical adenopathy. Skin: General: Skin is warm and dry. Findings: No rash. Neurological: Mental Status: She is oriented to person, place, and time. Sensory: No sensory deficit. Gait: Gait normal. Psychiatric: Mood and Affect: Mood normal. Thought Content: Thought content normal. Judgment: Judgment normal. ASSESSMENT AND PLAN: Assessment/Plan Problem List Items Addressed This Visit Acute pharyngitis Other Visit Diagnoses Sore throat - Primary Relevant Orders POCT rapid strep A manually resulted (Completed) Neg rapid strep suspect viral process. Tylenol prn pain,, ca if symptms not improvng in 3-4 days or sooenr if worsens documented in this encounter [facility] 07-28-2024 Telephone encounter Note Patient is requesting refill on control jencycla 0.35mg tabs 1 every day [facility] [place]. Also needs prozac refilled. Thank you. [facility] 07-28-2024 Miscellaneous Notes Patient is requesting refill on control jencycla 0.35mg tabs 1 every day [facility] [place]. Also needs prozac refilled. Thank you. documented in this encounter [facility] 07-02-2024 Note Cardiology Clinic No te Chief [...] or concerns. Andie Alba MD Interventional Cardiology [facility] 08-22-2021 Evaluation note Encounter Date Diagnosis Assessment [...] Patient care instructions given in writting by [facility] Care At Home document. [employer] Other Evaluation noteNo assessment information available [facility] Work Phone: Evaluation note* Diagnosis Tendinopathy of right rotator cuff- Primary Muscle spasm of right shoulder [facility] Diagnosis Primary hypertension (CMS/HCC) Unspecified essential hypertension [facility] Diagnosis Sore throat- Primary Acute pharyngitis Acute pharyngitis, unspecified etiology [facility]* Diagnosis Anxiety, generalized (CMS/HCC) [facility]* Diagnosis Primary hypertension (CMS/HCC) Unspecified essential hypertension Anxiety, generalized (CMS/HCC) Unwanted fertility [facility] Diagnosis Anxiety, generalized (CMS/HCC) Unwanted fertility Primary hypertension (CMS/HCC) Unspecified essential hypertension [facility]* Diagnosis Acute non-recurrent pansinusitis- Primary Acute cough Nasal congestion Other diseases of nasal cavity and sinuses Ear pain, bilateral Major depressive disorder, single episode, moderate (HCC) ([facility]) Major depressive disorder, single episode, moderate [facility] Diagnosis Left acute otitis media- Primary Unspecified otitis media Viral URI Acute upper respiratory infections of unspecified site [facility]* Diagnosis Wellness examination- Primary control counseling Migraine without aura and without status migrainosus, not intractable ([facility]) Acute allergic reaction, subsequent encounter Bee sting allergy Unwanted fertility [facility] Diagnosis Migraine without aura and without status migrainosus, not intractable ([facility])- Primary [facility]* Diagnosis Normal gynecologic examination Unwanted fertility [facility] Narrative - Reported* Type Description Date Medical History hydronephrosis Medical History GERD Medical History ENLARGED KIDNEY Medical History kidney repair Surgical History tube in kidney Surgical History appendix removed Surgical History tubes in ears, twice Surgical History adnoids removed [employer] Other Summary Purpose Family History No Family [...] section and content) DATE CREATED AUTHOR 05/19/2018 [facility] DATE CREATED AUTHOR AUTHOR'S ORGANIZ ATION 05/20/2018 [facility] DATE CREATED AUTHOR AUTHOR'S ORGANIZ ATION 06/19/2019 [facility] DATE CREATED AUTHOR AUTHOR'S ORGANIZ ATION 03/07/2021 [facility] DATE CREATED AUTHOR AUTHOR'S ORGANIZ ATION 02/09/2022 [facility] dical Specialist DATE CREATED AUTHOR AUTHOR'S ORGANIZ ATION 03/03/2023 [facility] DATE CREATED AUTHOR AUTHOR'S ORGANIZ ATION 10/07/2023 [facility] DATE CREATED AUTHOR AUTHOR'S ORGANIZ ATION 07/24/2024 [facility] DATE CREATED AUTHOR AUTHOR'S ORGANIZ ATION 11/14/2024 [facility] DATE CREATED AUTHOR AUTHOR'S ORGANIZ ATION 05/20/2025 [facility] dical Specialists EPIC REASON FOR VISIT (unrecogniz ed section and content) Reason Comments Follow-up Reason Comments Med Refill Reason Comments Sore Throat Reason Comments URI Reason Comments Cough Reason Comments Annual Exam Reason Comments Gynecologic Exam Care Teams (unrecognized sec tion and content) Team Status: Inactive Member Role Status Dates Felicia Mancini APRN Attending Provider Active Tania Gama MD Primary Care Provider Active Team Status: Inactive Member Role Status Dates Ramírez Alas Attending Provider Active 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 Jumper Supervisor Relationship Specialty Start Date End Date Tania Gama MD [address] [facility] [place] [address] PCP - General Family Medicine 05/21/23 Smoke Jumper Supervisor Relationship Specialty Start Date End Date Tania Gama MD [address] [facility] [place] [address] PCP - General Family Medicine 05/21/23 Smoke Jumper Supervisor Relationship Specialty Start Date End Date Tania Gama MD [address] [facility] [place] [address] PCP - General Family Medicine 05/21/23 Smoke Jumper Supervisor Relationship Specialty Start Date End Date Tania Gama MD [address] [facility] [place] [address] PCP - General Family Medicine 05/21/23 Smoke Jumper Supervisor Relationship Specialty Start Date End Date Tania Gama MD [address] [facility] [place] [address] PCP - General Family Medicine 05/21/23 Smoke Jumper Supervisor Relationship Specialty Start Date End Date Tania Gama MD [address] [place] [address] PCP - General Family Medicine 05/21/23 Smoke Jumper Supervisor Relationship Specialty Start Date End Date Tania Gama MD [address] [place] [address] PCP - General Family Medicine 05/21/23 Smoke Jumper Supervisor Relationship Specialty Start Date End Date Tania Gama MD [address] [place] [address] PCP - General Family Medicine 05/21/23 Smoke Jumper Supervisor Relationship Specialty Start Date End Date Tania Gama MD [address] [place] [address] PCP - General Family Medicine 05/21/23 Smoke Jumper Supervisor Relationship Specialty Start Date End Date Tania Gama MD [address] [place] [address] PCP - General Family Medicine 05/21/23 Smoke Jumper Supervisor Relationship Specialty Start Date End Date Tania Gama MD [address] [place] [address] PCP - General Family Medicine 05/21/23 Goals [...] BE BASED ON THE PRIMARY CLINICAL RECORDS. [facility]. provides no warranty or guarantee of the accuracy or completeness of information in this document.
--- NOTE | 2025-07-21 19:49 | ED_ITS ---
HPI - Allergic Reaction General Chief complaint: Allergic Reaction Stated complaint: STUNG BY BEE/HAS BEE ALLERGY Time Seen by Provider: 07/21/25 19:37 Mode of arrival: walk-in History of Present Illness HPI narrative: This 25-year-old old female presents for evaluation of a bee sting to her right ring finger. The sting happened approximately 1 hour prior to arrival. She took 50 mg of Benadryl. 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 She states she was stung 2 weeks ago by a bee on her foot and at that time had some swelling of her lips. She is not having difficulty breathing or swallowing but states her throat feels scratchy. She does not have any skin rash. She is not having nausea or vomiting. She has no swelling of her lips or face. She denies the possibility of . Related Data Home Medications ?Medication ?Instructions ?Recorded ?Confirmed etonogestrel 0.12 mg-ethinyl vag ring vaginal 07/21/25 estradiol 0.015 mg/24 hr vaginal ring (EluRyng) Allergies Allergy/AdvReac Type Severity Reaction Status Date / Time labetalol Allergy Mild Unknown Verified 10/11/24 06:34 Review of Systems ROS Status of ROS 10 or more systems reviewed and unremark able except as noted in history and below PFSH [facility] Medical History (Updated 07/21/25 @ 20:23 by Vilma Cohen MD) GERD (gastroesophageal reflux disease) ?K21.9 - Gastro-esophageal reflux disease without esophagitis (ICD-10) Surgical History (Updated 06/18/23 @ 01:36 by Natalia Sanders) History of kidney surgery ?Z98.890 - Other specified postprocedural states (ICD-10) History of placement of ear tubes ?Z96.22 - Myringotomy tube(s) status (ICD-10) History of appendectomy ?Z90.49 - Acquired absence of other specified parts of digestive tract (ICD- 10) History of tonsillectomy and adenoidectomy ?Z90.89 - Acquired absence of other organs (ICD-10) Family History (Updated 06/18/23 @ 01:29 by Natalia Sanders) Mother Family history of hypertension Family history of diabetes mellitus Family history of myocardial infarction Grandmother Family history of hypertension Family history of diabetes mellitus Social History (Updated 06/18/23 @ 01:32 by Natalia Sanders) Within the past year, how often did you have a drink containing alcohol: monthly or less Within the past year, how many standard drinks containing alcohol did you have on a typical day: 1 or 2 Within the past year, how often did you have six or more drinks on one occasion: never Total score: 0 Score interpretation: A score less than 3 is consistent with normal alcohol consumption. Smoking status: Never smoker Non-prescribed substance use: denies use Highest level of school completed/degree received: some college, no degree Little interest or pleasure in doing things: not at all Feeling down, depressed, or hopeless: not at all Feel stressed/tense/nervous/anxious/difficulty sleeping: not at all Do you think of yourself as: straight/heterosexual Gender Identity: female Exam Narrative Exam Narrative: Vital signs and Nursing Notes reviewed: Patient is afebrile with a normal pulse, blood pressure mildly elevated 147/79, she is not hypoxic with pulse ox of 100% on room air General: Awake, alert, oriented, no acute distress, lying comfortably on the stretcher HEENT: Normocephalic atraumatic, mucous membranes are moist and pink, eyes are clear, normal conjunctiva, vision is grossly intact, posterior pharynx is normal in appearance. There is no swelling of the tongue, lips, posterior pharynx or uvula. There is no trismus or drooling. Speech is clear. Neck: Supple, no stridor Chest: Lungs are clear to auscultation with good air entry, there is no wheezing rhonchi or rales appreciated no accessory muscle use, patient is speaking in complete sentences CVS: Regular rate and rhythm S1-S2, no murmurs rubs or gallops, pulses are brisk and equal bilaterally ABD: Soft, nondistended, nontender, no rebound guarding or rigidity, bowel sounds are normal, no pulsatile masses appreciated Extremities: Moving all extremities, no lower extremity tenderness or swelling noted, negative Homans' sign, pulses are brisk and equal bilaterally Skin: Normal in appearance without rash,pallor, petechiae or purpura-no rash or urticaria noted Neuro: No focal deficits Constitutional Vital Signs, click to edit/add: Last Vital Signs Temp 98.4 F 07/21/25 19:37 Pulse 92 H 07/21/25 19:37 Resp 14 07/21/25 19:37 BP 147/79 H 07/21/25 19:37 Pulse Ox 100 07/21/25 19:37 O2 Del Method Room Air 07/21/25 19:37 Course Vital Signs Vital signs: Vital Signs Temperature 98.4 F 07/21/25 19:37 Pulse Rate 92 H 07/21/25 19:37 Respiratory Rate 14 07/21/25 19:37 Blood Pressure 147/79 H 07/21/25 19:37 Pulse Oximetry 100 07/21/25 19:37 Oxygen Delivery Method Room Air 07/21/25 19:37 Temperature 98.4 F 07/21/25 19:37 Pulse Rate 92 H 07/21/25 19:37 Respiratory Rate 14 07/21/25 19:37 Blood Pressure 147/79 H 07/21/25 19:37 Pulse Oximetry 100 07/21/25 19:37 Oxygen Delivery Method Room Air 07/21/25 19:37 MDM - Allergic Reaction MDM Narrative Medical decision making narrative: This 25-year-old female presents for evaluation of a bee sting to her right ring finger that happened approximately an hour prior to arrival. She states she was stung by a bee several weeks ago as well and had some lip swelling and discomfort at that time. She does have an EpiPen that she did not take. She is not having any symptoms of angioedema but states her throat feels scratchy which is why she came to the hospital. She does not have any oropharyngeal swelling, lip swelling, skin rash, shortness of breath, her lungs are clear. I do not think that she requires epinephrine at this time. She had taken 50 mg of Benadryl prior to arrival. She was given IV fluids, Pepcid and Solu-Medrol and monitored in the emergency department. Patient was continually reevaluated and her symptoms have improved. She is sitting comfortably on the stretcher. She still does not have any skin rash, facial or lip swelling difficulty swallowing or breathing. She will be discharged home with a prescription for a Medrol Dosepak to use over the course of the next several days with recommendation for return to the emergency department as needed for worsening symptoms. She does have an EpiPen to use as needed for symptoms of angioedema. Discharge Plan Discharge Chief Complaint: Allergic Reaction Clinical Impression: Bee sting reaction Patient Disposition: Home, Self-Care Time of Disposition Decision: 20:36 Prescriptions / Home Meds: No Action etonogestrel-ethinyl estradiol [EluRyng] 0.12-0.015 mg/24 hr ring VAGINAL Print Language: Citizen [place] Instructions: Insect Bite or Sting (ED) Referrals: MEKHI GAMA [Primary Care Provider, Family Practice] - 1 week Discharge Date/Time: 07/21/25 21:00
[2025-07-21] MEDS: FAMOTIDINE/PF 20 MG/2 ML VIAL IV (20:09)
[2025-07-21] MEDS: METHYLPREDNISOLONE SOD SUCC PF 125 MG/2 ML VIAL IVP (20:09)
[2025-07-21] MEDS: 0.9 % SODIUM CHLORIDE 1,000 ML 1000 ML IV (20:09)
== END 2025-07-21 21:00 | disposition home or self-care (01) ==
PROVIDERS: Emergency Provider Emergency Medicine; Family Provider Family Medicine; PCP Family Medicine
DX: T63.441A Toxic effect of venom of bees, accidental (unintentional), initial encounter (principal)
CPT/HCPCS: 96374; 96375; 99284; J2919; J3490